=== PATIENT | male | born 1940 | race Caucasian/White ===

== ENCOUNTER 2019-09-27 08:42 | Emergency (ER) | payer MEDICARE, SELFPAY ==
[2019-09-27 08:46] VITALS: BP 141/93; PULSE 90; RESP 16; TEMP 36.4; O2SAT 95; BMI 28.2
--- NOTE | 2019-09-27 08:51 | ED_ITS ---
HPI - Back Pain/Injury General: Chief Complaint: Back Pain/Injury Stated Complaint: back pain Time Seen by Provider: 09/27/19 08:44 Source: patient Mode of arrival: ambulatory Limitations: no limitations History of Present Illness: HPI Narrative: Patient is a very nice 79-year-old male who presents to ED today with a complaint of midthoracic back pain. Patient tells me he went to sleep last night around 9 PM and reportedly felt fine . He states he woke up around 11 PM with pain in his back. He tried treating with Ibuprofen, Aleve, and Tylenol without relief. Patient states he had been mowing the yard that day. He reports previous back pains that are normally treated successfully with the above medications. Patient was seen by Preet Cooper provider and sent to the emergency department for further evaluation as patient has a known thoracic aneurysm and pain could not be reproduced on physical examination. Patient does not complain of any chest pain, shortness of breath, difficulty breathing. He has no numbness, tingling, loss of sensation, weakness to his upper extremities. He does not complain of any other neurological deficits. MD elicited complaint: back pain Onset (ago): hour(s) Timing: constant Similar Symptoms Previously: Yes Location: thoracic spine Radiation: none Relieving factors: none Associated symptoms: Deny abdominal pain, chills, difficulty walking, dysuria, fever(s), nausea, syncope, urinary urgency or vomiting Treatments prior to arrival: NSAIDS and acetaminophen Work related injury: No Review of Systems Const: Denies: fever(s), chills or body aches Eyes: Denies: change in vision, blurry vision, photophobia, floaters or seeing flashes ENMT: Denies: throat pain Card: Denies: chest pain, palpitations, irregular heart rhythm, edema, swelling of feet/ankles, lightheadedness, syncope, pre-syncope, dyspnea on exertion, orthopnea, leg pain with exertion or acrocyanosis Resp: Denies: dyspnea, productive cough, non-productive cough, hemoptysis or chest congestion GI: Denies: abdominal pain, nausea or vomiting : Denies: flank pain, difficulty urinating, dysuria, urinary frequency, urinary urgency or urinary hesitancy Musc: Reports: back pain; Denies: neck pain, extremity pain, extremity swelling, joint pain or joint swelling Neuro: Denies: headache(s), numbness in extremities, weakness in extremities, sensory changes, difficulty walking or dizziness Physical Exam Const: COMMON NORMALS: no acute distress, average body habitus, patient oriented x3, no limitations, healthy appearing, alert and well nourished ORIENTATION/CONSCIOUSNESS: Yes oriented to person, Yes oriented to place and Yes oriented to time HENMT: COMMON NORMALS: normocephalic and atraumatic HEAD & SCALP: normocephalic and atraumatic Neck/C-Spine: COMMON NORMALS: full ROM CERVICAL SPINE: Yes cervical ROM normal, No Cervical spine tenderness and No Paracervical muscle tenderness Chest: COMMONS NORMALS: normal inspection of the chest and normal palpation of entire chest wall Resp: COMMON NORMALS: normal respiratory effort and clear to auscultation bilaterally AUSCULTATION: clear to auscultation bilaterally Cardio: COMMON NORMALS: regular rate and regular rhythm RATE: regular rate RHYTHM: regular rhythm GI: COMMON NORMALS: Normal to inspection, nondistended, normoactive bowel sounds present, Soft to palpation, non-tender, No hepatosplenomegaly present and no masses PALPATION: Yes Soft to palpation and Yes No hepatosplenomegaly present : COMMON NORMALS: Yes no CVA tenderness BLADDER/KIDNEY EXAM: Yes no CVA tenderness Back/Pelvis: COMMON NORMALS: no CVA tenderness and straight leg raise negative bilaterally THORACIC SPINE/UPPER BACK: Yes normal to inspection, Yes thoracic ROM normal, No thoracic spinal tenderness and No paraspinal muscle tenderness LUMBAR SPINE/LOWER BACK: Yes normal to inspection, Yes lumbar ROM normal, No lumbar spinal tenderness and No paraspinal muscle tenderness OTHER: pt complains of mid thoracic back pain but it is not reproducible by palpation Extremity: COMMON NORMALS: normal to inspection and full ROM GENERAL: Yes normal exam except as noted Neuro: COMMON NORMALS: patient oriented x3, moves all extremities, no focal motor deficits, no sensory deficits noted and gait normal SEN SORIUM/ORIENTATION: Yes alert, Yes oriented to person, Yes oriented to place and Yes oriented to time Skin: COMMON NORMALS: no rashes or lesions noted GENERAL SKIN EXAM: no rashes or lesions noted Course Vital Signs: Vital signs: Vital Signs Temperature 97.5 F L 09/27/19 08:46 Pulse Rate 80 09/27/19 09:48 Respiratory Rate 18 09/27/19 09:48 Blood Pressure 163/81 09/27/19 09:48 Pulse Oximetry 96 09/27/19 09:48 MDM - Back Pain/Injury MDM Narrative: Medical decision making narrative: pts known aneurysm is stable; no other intra-throacic abnormalities to explain pain; labs are overall non-concerning; he does have leukocytosis at 18.6 w/o any source of infection; UA is normal; at this time we will treat pts pain and recommend close follow up with his PCP; strict return to ED precautions given Lab Data: Labs: Lab Results 09/27/19 09/27/19 09/27/19 Range/Units 09:05 09:05 09:15 WBC 18.6 H (4.0-10.0) 10^3/ uL RBC 5.42 H (4.1-5.3) 10^6/u L Hgb 16.3 (11.7-16.6) g/dL Hct 49.7 (42.0-52.0) % MCV 91.7 (80-94) fL MCH 30.1 (28.0-34.0) pg MCHC 32.8 (30.0-36.0) g/dL RDW 13.6 (12.1-15.1) % Plt Count 271 (130-400) 10^3/c mm MPV 9.4 (7.4-10.4) fL Neut % (Auto) 90.4 % Lymph % (Auto) 4.7 % [place] % (Auto) 4.3 % Eos % (Auto) 0.1 % Baso % (Auto) 0.1 % Neut # (Auto) 16.85 H (1.8-7.7) 10^3/u L Lymph # (Auto) 0.9 (0.8-4.8) 10^3/u L [place] # (Auto) 0.8 (0.2-0.9) 10^3/u L Eos # (Auto) 0.0 (0.0-0.8) 10^3/u L Baso # (Auto) 0.0 (0.0-0.1) 10^3/u L Nucleated RBC % (a uto) 0 % Nucleated RBCs # 0.0 /100WBC Sodium 135 L (136-145) mmol/L Potassium 3.9 (3.5-5.1) mmol/L Chloride 100 (98-107) mmol/L Carbon Dioxide 21 L (22-29) mmol/L Anion Gap 17.9 (5-19) BUN 10 (8-23) mg/dL Creatinine 0.8 (0.7-1.2) mg/dL GFR Calculation Not Reportable Glucose 129 H (65-115) mg/dL Calculated Osmolal ity 278 L (285-295) mOsm/k g Calcium 9.6 (8.5-10.5) mg/dL Total Bilirubin 0.8 (0.15-1.2) mg/dL AST 25 (0-40) U/L ALT 20 (0-41) U/L Alkaline Phosphata se 88 (40-130) IU/L Total Protein 8.5 (6.6-8.7) g/dL Albumin 4.7 (3.5-5.2) g/dL Globulin 3.8 (1.3-4.6) g/dL Urine Color Yellow (Yellow) Urine Appearance Hazy A (CLEAR) Urine pH 9 H (5-7) Ur Specific Gravit y 1.020 (1.005-1.030) Urine Protein Trace (Negative) Urine Glucose (UA) Norm (Normal) Urine Ketones 1+ H (Negative) Urine Blood Neg (Negative) Urine Nitrate Negative (Negative) Urine Bilirubin Neg (NEGATIVE) Prot Sulfosalicyli c Acd Positive (Negative) Urine Urobilinogen Norm (Negative) mg/dL Ur Leukocyte Serenity ase Negative (Negative) Urine RBC Rare (0-2) /hpf Urine WBC Rare (0-5) /hpf Ur Squamous Epith Cells 0-4 H (0-5) Amorphous Sediment 2+ Urine Bacteria Trace (NONE) Imaging Data^: CTA thoracic: Radiologist's impression: [address] [place] [address] CT Scan Report Signed Patient: Vasquez Marsh Unit #: [id number] : 1940 Age/Sex: 79 / M ADM Date: 09/27/19 Loc: ER Room/Bed: Attending Dr: Ordering Provider/Ordering MD: Krysta Pacheco Date of Service: 09/27/19 Procedure(s): CT angio chest 69075 Accession Number(s): [id number] Report Number: [id number] WS: [id number] CTA THORACIC AORTA WITH AND WITHOUT CONTRAST. HISTORY: mid/lower back pain; known thoracic aneurysm TECHNIQUE: CT imaging of the thorax is performed with and without contrast. After noncontrast imaging is performed, CT angiogram is performed during injection of Omnipaque 350; 95 mL IV.. Sagittal and coronal reconstructions, sagittal and coronal MIP imaging is submitted. All CT scans at [facility] use at least one of these dose optimization techniques: automated exposure control; mA and/or kV adjustment per patient size (includes targeted exams where dose is matched to clinical indication); or iterative reconstruction. DLP: 1426.35 mGy.cm COMPARISON: 01/15/2019 Ectatic mildly dilated thoracic aorta. Similar to the prior study. Maximum transverse diameter of the ascending aorta is 4.3 cm which is similar to the prior study. Mild aneurysmal dilatation continues through the arch and proximal aorta. Aorta is tortuous and just distal to the aortic arch returns to a more normal caliber below the level of the luiz. There is calcified plaque and mild intimal thickening. Moderate calcification at the origin of the great vessels. Largest area of calcification is at the origin of the LEFT subclavian artery. Also similar to the prior study. There is heavy coronary artery calcification. Pulmonary artery size is normal. No adenopathy. Hyperexpanded lungs with emphysema. No suspicious mass or nodule. Small hiatal hernia. Upper abdominal structures are negative for any acute process. Atherosclerosis continues into the superior renal abdominal aorta. Splenic granulomata. Increase in thoracic kyphosis. Mild LEFT convex curvature of the thoracic spine. CT/CT angio chest [id number] IMPRESSION: 1. Stable mild aneurysmal dilatation of the ascending and proximal descending aorta with a maximum diameter 4.3 cm. 2. Mildly tortuous atherosclerotic thoracic aorta otherwise. 3. Chronic emphysema. 4. Moderate calcification at the origin of the great vessels similar to the prior study. 5. Extensive coronary artery atherosclerosis. Dictated By: Shannan Davis DO Signed By: Shannan Davis DO Signed Date/Time: 09/27/19 1015 DD/ 1007 Discharge Plan Discharge Patient Disposition: Home Clinical Impression: Back pain Qualifiers: Back pain location: thoracic back pain Chronicity: acute Back pain laterality: midline Qualified Code(s): M54.6 - Pain in thoracic spine Condition: Stable Prescriptions: New hydrocodone-acetaminophen 5-325 mg tablet 1 tab PO Q6H PRN (Reason: pain) Qty: 14 RF: 0 No Action pravastatin [Pravachol] 40 mg tablet 40 mg PO QPM RF: 0 amlodipine [Norvasc] 10 mg tablet 10 mg PO DAILY RF: 0 benazepril [Lotensin] 40 mg tablet 40 mg PO DAILY RF: 0 Zantac 300 mg PO BID RF: 0 Tylenol Extra Strength 500 mg Tablet 500 mg PO PRN RF: 0 Aleve 220 mg Tablet 440 mg PO PRN RF: 0 ibuprofen 200 mg Tablet 400 mg PO PRN RF: 0 Some Kind Of White Pain Pill See Rx Instructions .ROUTE .COMPLEX RF: 0 Discharge Orders: Discharge Order (Routine); Ordered 09/27/19 Ordered By: Krysta Pacheco Patient Instructions: Back Pain (ED) Activity Restrictions/Additional Instructions: Please follow-up with primary care at the end of the week for reevaluation. Return to the emergency department for any worsening pain, chest pain, difficulty breathing, numbness or tingling to your arms/face, or any other concerns you may have. Coding Level of Care Code ED Twister Tender Paper for [place] [facility] Exam Comprehensive
--- NOTE | 2019-09-27 08:53 | CT_ITS ---
WS: [id number] CTA THORACIC AORTA WITH AND WITHOUT CONTRAST. HISTORY: mid/lower back pain; known thoracic aneurysm TECHNIQUE: CT imaging of the thorax is performed with and without contrast. After noncontrast imaging is performed, CT angiogram is performed during injection of Omnipaque 350; 95 mL IV.. Sagittal and c oronal reconstructions, sagittal and coronal MIP imaging is submitted. All CT scans at [facility] use at least one of these dose optimization techniques: automated exposure control; mA and/o r kV adjustment per patient size (includes targeted exams where dose is matched to clinical indicatio n); or iterative reconstruction. DLP: 1426.35 mGy.cm COMPARISON: 01/15/2019 Ectatic mildly dilated thoracic aorta. Similar to the prior study. Maximum transverse diameter of the ascending aorta is 4.3 cm which is similar to the prior study. Mild aneurysmal dilatation continues through the arch and proximal aorta. Aorta is tortuous and just distal to the aortic arch returns to a more normal caliber below the level of the luiz. There is calcified plaque and mild intimal thick ening. Moderate calcification at the origin of the great vessels. Largest area of calcification is at the origin of the LEFT subclavian artery. Also similar to the prior study. There is heavy coronary a rtery calcification. Pulmonary artery size is normal. No adenopathy. Hyperexpanded lungs with emphysema. No suspicious mass or nodule. Small hiatal hernia. Upper abdominal structures are negative for any acute process. Atherosclerosis continues into the sup erior renal abdominal aorta. Splenic granulomata. Increase in thoracic kyphosis. Mild LEFT convex curvature of the thoracic spine. CT/CT angio chest [id number] IMPRESSION: 1. Stable mild aneurysmal dilatation of the ascending and proximal descending aorta with a maximum diameter 4.3 cm. 2. Mildly tortuous atherosclerotic thoracic aorta otherwise. 3. Chronic emphysema. 4. Moderate calcification at the origin of the great vessels similar to the pr ior study. 5. Extensive coronary artery atherosclerosis.
[2019-09-27 09:13] LABS: Basophils % 0.1 %; Eosinophils % 0.1 %; Hematocrit 49.7 % (42.0-52.0); Hemoglobin 16.3 g/dL (11.7-16.6); Lymphocytes # 0.9 10^3/uL (0.8-4.8); Lymphocytes % 4.7 %; Mean Corpuscular HGB Conc 32.8 g/dL (30.0-36.0); Mean Corpuscular Hemoglobin 30.1 pg (28.0-34.0); Mean Corpuscular Volume 91.7 fL (80-94); Mean Platelet Volume 9.4 fL (7.4-10.4); Monocytes # 0.8 10^3/uL (0.2-0.9); Monocytes % 4.3 %; Neutrophils # 16.85 10^3/uL (1.8-7.7); Neutrophils % 90.4 %; Nucleated Red Blood Cells % 0 %; Platelet Count 271 10^3/cmm (130-400); Red Blood Count 5.42 10^6/uL (4.1-5.3); Red Cell Distribution Width 13.6 % (12.1-15.1); White Blood Count 18.6 10^3/uL (4.0-10.0)
[2019-09-27 09:31] LABS: Alanine Aminotransferase 20 U/L (0-41); Albumin Level 4.7 g/dL (3.5-5.2); Alkaline Phosphatase 88 IU/L (40-130); Anion Gap 17.9 (5-19); Aspartate Amino Transferase 25 U/L (0-40); Blood Urea Nitrogen 10 mg/dL (8-23); Calcium 9.6 mg/dL (8.5-10.5); Carbon Dioxide 21 mmol/L (22-29); Chloride 100 mmol/L (98-107); Globulin 3.8 g/dL (1.3-4.6); Glucose 129 mg/dL (65-115); Osmolality Calculated 278 mOsm/kg (285-295); Potassium 3.9 mmol/L (3.5-5.1); Sodium 135 mmol/L (136-145); Total Bilirubin 0.8 mg/dL (0.15-1.2); Total Protein 8.5 g/dL (6.6-8.7)
[2019-09-27] MEDS: iohexol 350 mg/mL 100 mL Btl IV (09:42)
[2019-09-27 09:48] VITALS: BP 163/81; PULSE 80; RESP 18; O2SAT 96
[2019-09-27 09:57] LABS: Add Urine Microscopic? YES; Bilirubin Urine Neg (NEGATIVE); Blood Urine Neg (Negative); Glucose Urine UA Norm (Normal); Ketones Urine 1+ (Negative); Leukocyte Esterase Urine Negative (Negative); Nitrate Urine Negative (Negative); Protein Urine Trace (Negative); Sulfosalicylic Acid Urine Positive (Negative); Urine Appearance Hazy (CLEAR); Urine Color Yellow (Yellow); Urobilinogen Urine Norm (Negative); pH Urine 9 (5-7)
[2019-09-27 10:06] LABS: Add Urine Culture? No; Amorphous Sediment Urine 2+; Bacteria Urine TRACE; RBC Urine RARE /hpf (0-2); Squamous Epithelial Cell Urine 0-4 (0-5); WBC Urine RARE /hpf (0-5)
[2019-09-27 10:46] VITALS: BP 131/87; PULSE 82; RESP 20; O2SAT 96
== END 2019-09-27 10:47 | disposition home or self-care (01) ==
PROVIDERS: Emergency Provider Physician Assistant
DX: M54.6 Pain in thoracic spine (principal)
CPT/HCPCS: 12345; 71275; 80053; 81001; 85025; 99283; Q9967

== ENCOUNTER 2019-10-01 18:33 | Inpatient (IN) | payer MEDICARE, SELFPAY ==
[2019-10-01 18:39] VITALS: BP 126/77; PULSE 100; RESP 20; TEMP 37.3; O2SAT 94; BMI 28.2
[2019-10-01 19:14] VITALS: BP 111/74; PULSE 78; RESP 16; O2SAT 96
[2019-10-01 19:14] LABS: Basophils % 0.2 %; Eosinophils % 0.1 %; Hematocrit 40.7 % (42.0-52.0); Hemoglobin 13.6 g/dL (11.7-16.6); Lymphocytes # 0.5 10^3/uL (0.8-4.8); Mean Corpuscular HGB Conc 33.4 g/dL (30.0-36.0); Mean Corpuscular Hemoglobin 29.7 pg (28.0-34.0); Mean Corpuscular Volume 88.9 fL (80-94); Mean Platelet Volume 9.4 fL (7.4-10.4); Monocytes # 1.8 10^3/uL (0.2-0.9); Monocytes % 11.5 %; Neutrophils # 12.98 10^3/uL (1.8-7.7); Neutrophils % 84.7 %; Nucleated Red Blood Cells % 0 %; Platelet Count 287 10^3/cmm (130-400); Red Blood Count 4.58 10^6/uL (4.1-5.3); White Blood Count 15.3 10^3/uL (4.0-10.0)
--- NOTE | 2019-10-01 19:29 | CTR_ITS ---
PROCEDURE INFORMATION: Exam: CT Abdomen And Pelvis With Contrast Exam date and time: 10/01/2019 8:10 PM Age: 79 years old Clinical indication: Nausea and vomiting; Abdominal pain; Generalized; Additional info: Ruq abdominal pain TECHNIQUE: Imaging protocol: Computed tomography of the abdomen and pelvis with intravenous contrast. Radiation optimization: All CT scans at this facility use at least one of these dose optimization techniques: automated exposure control; mA and/or kV adjustment per patient size (includes targeted exams where dose is matched to clinical indication); or iterative reconstruction. Contrast material: OMNI 300; Contrast volume: 95 ml; Contrast route: INTRAVENOUS (IV); COMPARISON: US gall bladder [id number] 10/01/2019 8:00 PM RADIATION DOSE METRICS: Total DLP (mGy-cm): 979.48 FINDINGS: Lungs: Limited assessment lung bases without visible evidence of active cardiopulmonary process. Coronary artery disease. Liver: Unremarkable. No mass. Gallbladder and bile ducts: Examination reveals a markedly inflamed gallbladder. No visible form cholelithiasis. No visible solid gallbladder wall mass. No visible free pericholecystic fluid. Marked surrounding inflammatory phlegmonous response. Suspicion for acute acalculous cholecystitis. Pancreas: Pancreas unremarkable. No visible pancreatic ductal ectasia. Spleen: Scattered calcified splenic granulomas. Spleen otherwise unremarkable. Adrenals: Normal. No mass. Kidneys and ureters: Simple cortical cyst equator left kidney measuring 55 mm. No follow-up recommended. No visible hydronephrosis or perinephric fluid bilaterally. No visible nephrolithiasis. Stomach and bowel: Adjacent reactive duodenitis and focal colitis. Diverticulosis coli, primarily the sigmoid colon, without visible evidence of acute diverticulitis. Nonobstructive bowel pattern. Appendix: The appendix is visualized appears noninflamed. Intraperitoneal space: No free fluid the pelvis. No visible intraperitoneal ascites. Vasculature: The abdominal aorta is nonaneurysmal but demonstrates advanced arterial sclerotic disease. Lymph nodes: Few small benign-appearing periaortic lymph nodes. No visible intraperitoneal mesenteric or retroperitoneal active lymphadenopathy. Bladder: Urinary bladder unremarkable. Reproductive: Prostate hypertrophy. 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 No visible osteolytic or osteoblastic destructive process. Scoliosis. Soft tissues: Unremarkable. CT/CT abdomen pelvis w con* [id number] IMPRESSION: 1. Findings consistent with acute acalculous cholecystitis. 2. Reactive focal inflammatory duodenitis. 3. Reactive hepatic flexure inflammatory colitis. 4. Diverticulosis coli without evidence for diverticulitis. 5. Simple left renal cortical cysts. No follow-up recommended. 6. Other nonurgent and nonemergent findings detailed in text. COMMENTS: Consistent with the [employer]'s Incidental Findings Committee white paper (J Am Debra Radiol 2018): Any incidental renal lesion less than 1.0 cm or classified as too small to characterize, or any incidental cystic renal lesion characterized as simple-appearing, is likely benign. No follow-up imaging is recommended for these lesions per consensus recommendations based on imaging criteria. Radiation Dose CTDIVOL = (mGy): DLP = 979.48 (mGy-cm)
[2019-10-01 19:35] LABS: Alanine Aminotransferase 32 U/L (0-41); Albumin Level 3.5 g/dL (3.5-5.2); Alkaline Phosphatase 95 IU/L (40-130); Anion Gap 14.4 (5-19); Aspartate Amino Transferase 29 U/L (0-40); Blood Urea Nitrogen 16 mg/dL (8-23); Calcium 8.5 mg/dL (8.5-10.5); Carbon Dioxide 22 mmol/L (22-29); Chloride 96 mmol/L (98-107); Creatine Phosphokinase 27 U/L (39-308); Globulin 3.8 g/dL (1.3-4.6); Glucose 147 mg/dL (65-115); Lactate (Lactic Acid level) 1.5 mmol/L (0.5-2.2); Lipase 30 U/L (13-60); Osmolality Calculated 267 mOsm/kg (285-295); Potassium 3.4 mmol/L (3.5-5.1); Sodium 129 mmol/L (136-145); Total Bilirubin 0.6 mg/dL (0.15-1.2); Total Protein 7.3 g/dL (6.6-8.7)
--- NOTE | 2019-10-01 19:40 | USR_ITS ---
PROCEDURE INFORMATION: Exam: US Abdomen, Limited; Right Upper Quadrant Exam date and time: 10/01/2019 8:16 PM Age: 79 years old Clinical indication: Abdominal pain; Flank; Right upper quadrant (ruq); Patient HX: N/v; Additional info: Ruq abdominal pain TECHNIQUE: Imaging protocol: US abdomen. Real time ultrasound with image documentation. Limited exam focused on the right upper quadrant. COMPARISON: No relevant prior studies available. FINDINGS: Liver: Diffuse fatty infiltration of the liver. Mild hepatomegaly. No visible intra or extrahepatic biliary ectasia. Gallbladder: Enlarged hydropic gallbladder. Diffuse gallbladder wall thickening. Bulky appearing echogenic material within the lumen of the gallbladder that does not have the appearance of formed cholelithiasis or the typical appearance gallbladder sludge. Concern for a gallbladder mass. Common bile duct: No visible intra or extrahepatic biliary ectasia. Common bile duct measures 3 mm. Pancreas: Pancreas not well imaged. Right kidney: Unremarkable for age. No mass. No hydronephrosis. Right renal dimensions 11.1 cm x 5.2 cm x 5.2 cm. Aorta: The abdominal aorta where visualized is nonaneurysmal. Portal venous: Antecedent portal venous flow. Inferior vena cava: Inferior vena cava appears unremarkable were visualized. US/US gall bladder [id number] IMPRESSION: 1. Bulky abnormal intraluminal filling defect of the gallbladder. This finding does not have the typical appearance of gallbladder sludge or formed cholelithiasis. Concern for potential gallbladder mass. 2. Diffuse fatty infiltration of the liver. 3. Mild hepatomegaly. 4. Pancreas not well imaged due to bowel gas.
--- NOTE | 2019-10-01 19:42 | ED_ITS ---
HPI - Abdominal Pain General: Chief Complaint: Abdominal Pain Stated Complaint: low bp/ abd pain Time Seen by Provider: 10/01/19 18:48 History of Present Illness: HPI narrative: 79-year-old gentleman comes in with right upper quadrant abdominal pain, lethargy, and some vomiting for the past 3 days or so. He was seen on Friday in the ER with back pain, and had a negative CT MADRIGAL for PE/aneurysmal dissection. He was given hydrocodone. Friday and Friday he took that medication but stopped it on Friday. He says that he was seen on Friday in the clinic, and set up for right upper quadrant ultrasound, as he was having pain there at that point. He is continued to have pain with some vomiting since that time. No fever MD elicited complaint: abdominal pain Pertinent past history: none Onset (ago): day(s) Location: RUQ Severity: severe Quality: stabbing, aching and fullness Radiation: none Relieving factors: nothing Associated Symptoms: Reports constipation, nausea and vomiting; Denies coffee ground emesis, diarrhea, dysuria, fever(s), hematuria and hematemesis Review of Systems Const: Denies: fever(s) ENMT: Denies: swelling of lips/tongue or sinus pain Card: Denies: chest pain, palpitations, irregular heart rhythm or edema Resp: Denies: dyspnea, productive cough, non-productive cough or wheezing GI: Reports: nausea, vomiting and constipation; Denies: hematemesis, coffee ground emesis or diarrhea : Denies: difficulty urinating, dysuria or hematuria Musc: Denies: neck pain or back pain Skin/Breast: Denies: rash, pruritus or erythema Neuro: Denies: headache(s), dizziness or vertigo Psych: Denies: anxiety PFSH ED PFSH: Medical History Coronary atherosclerosis Diverticulosis Dyslipidemia Hypertension Surgical History No pertinent past surgical history Family History Other CAD (coronary artery disease) Cancer Hypertension Social History Smoking and tobacco status: former smoker Alcohol intake: current Alcohol intake frequency: holidays/special occasions only Alcohol type: beer Substance/Drug Use: never Household members: spouse Housing: House Current occupation: Retired [employer] Physical Exam Const: GENERAL APPEARANCE: well developed ORIENTATION/CONSCIOUSNESS: Yes oriented to person, Yes oriented to place and Yes oriented to time HENMT: COMMON NORMALS: normocephalic, external ears normal and Normal external nose present HEAD & SCALP: normocephalic FACE & SINUS: normal facial exam NOSE: Normal external nose present and No nasal discharge present EXTERNAL EAR: Yes external ears normal THROAT: posterior oropharynx normal; no peritonsillar mass Eye: COMMON NORMALS: Equal, round and reactive pupils present, EOMs intact bilaterally and conjunctivae normal EYELID: eyelids normal CONJUNCTIVA: Yes conjunctivae normal PUPIL: Yes Equal, round and reactive pupils present Neck/C-Spine: GENERAL: No tracheal deviation Chest: COMMONS NORMALS: normal inspection of the chest CHEST: No tenderness Resp: COMMON NORMALS: clear to auscultation bilaterally EFFORT & INSPECTION: No tachypneic, No respiratory distress, No retractions, No uses accessory muscles and No tracheal deviation AUSCULTATION: clear to auscultation bilaterally, no rhonchi, no wheezes and lung sounds not diminished Cardio: COMMON NORMALS: regular rate and regular rhythm RATE: regular rate RHYTHM: regular rhythm HEART SOUNDS: no murmurs PERIPHERAL PULSES: radial pulses present GI: INSPECTION: No abdominal distension AUSCULTATION: No Hyperactive bowel sounds present and No Hypoactive bowel sounds present PALPATION: Yes Tenderness to palpation present (GI) Details: RUQ, No Guarding due to palpation present (GI) and No Rigid due to palpation PERCUSSION: no dullness to percussion and no tympanic to percussion Neuro: SENSORIUM/ORIENTATION: Yes oriented to person, Yes oriented to place and Yes oriented to time Psych: COMMON NORMALS: mental status grossly normal Skin: COMMON NORMALS: no rashes or lesions noted GENERAL SKIN EXAM: no rashes or lesions noted Course Consultations: Consultation #1: Zeina Consultation #2: alexis Vital Signs: Vital signs: Vital Signs Temperature 98.8 F 10/01/19 23:58 Pulse Rate 71 10/01/19 23:58 Respiratory Rate 18 10/01/19 23:58 Blood Pressure 105/71 10/01/19 23:58 Pulse Oximetry 96 10/01/19 23:58 MDM - Abdominal Pain MDM Narrative: Medical decision making narrative: 79-year-old gentleman with right upper quadrant pain, white count of 15, and vomiting. Both ultrasound and CT confirmed evidence of acalculous cholecystitis. He has an adjacent colitis and duodenitis as well. Surgery was contacted. They asked for hospitalist admission, with surgical consultation. Zosyn for antibiotics. Pain and nausea control and fluids. Lab Data: Labs: Lab Results 10/01/19 10/01/19 10/01/19 Range/Units 19:05 19:05 19:05 WBC 15.3 H (4.0-10.0) 10^3/ uL RBC 4.58 (4.1-5.3) 10^6/u L Hgb 13.6 (11.7-16.6) g/dL Hct 40.7 L (42.0-52.0) % MCV 88.9 (80-94) fL MCH 29.7 (28.0-34.0) pg MCHC 33.4 (30.0-36.0) g/dL RDW 14.0 (12.1-15.1) % Plt Count 287 (130-400) 10^3/c mm MPV 9.4 (7.4-10.4) fL Neut % (Auto) 84.7 % Lymph % (Auto) 3.0 % Sampson % (Auto) 11.5 % Eos % (Auto) 0.1 % Baso % (Auto) 0.2 % Neut # (Auto) 12.98 H (1.8-7.7) 10^3/u L Lymph # (Auto) 0.5 L (0.8-4.8) 10^3/u L Sampson # (Auto) 1.8 H (0.2-0.9) 10^3/u L Eos # (Auto) 0.0 (0.0-0.8) 10^3/u L Baso # (Auto) 0.0 (0.0-0.1) 10^3/u L Nucleated RBC % (a uto) 0 % Nucleated RBCs # 0.0 /100WBC Sodium 129 L (136-145) mmol/L Potassium 3.4 L (3.5-5.1) mmol/L Chloride 96 L (98-107) mmol/L Carbon Dioxide 22 (22-29) mmol/L Anion Gap 14.4 (5-19) BUN 16 (8-23) mg/dL Creatinine 0.9 (0.7-1.2) mg/dL GFR Calculation Not Reportable Glucose 147 H (65-115) mg/dL Calculated Osmolal ity 267 L (285-295) mOsm/k g Lactate 1.5 (0.5-2.2) mmol/L Calcium 8.5 (8.5-10.5) mg/dL Total Bilirubin 0.6 (0.15-1.2) mg/dL AST 29 (0-40) U/L ALT 32 (0-41) U/L Alkaline Phosphata se 95 (40-130) IU/L Creatine Kinase 27 L (39-308) U/L Total Protein 7.3 (6.6-8.7) g/dL Albumin 3.5 (3.5-5.2) g/dL Globulin 3.8 (1.3-4.6) g/dL Lipase 30 (13-60) U/L Discharge Plan Discharge Patient Disposition: Admitted As Inpatient Admit Provider: Adrian Morales Clinical Impression: Acalculous cholecystitis Condition: Stable Referrals: Cuba Plasencia [Primary Care Provider] - Discharge Date/Time: 10/01/19 23:27 Coding Level of Care Code ED Food Operations Manager for g Fwd Exam Comprehensive
[2019-10-01] MEDS: ondansetron 2 mg/ML SDV 2 mL 4 MG IVP (20:16)
[2019-10-01] MEDS: sodium chloride 0.9% 1,000 ML 999 ML IV (20:16)
[2019-10-01] MEDS: ketorolac 30 mg/mL INJ IVP (20:16)
[2019-10-01] MEDS: iohexol 300 mg/mL 100 mL Btl IV (20:27)
[2019-10-01 20:52] VITALS: BP 117/82; PULSE 83; RESP 16; O2SAT 94
--- NOTE | 2019-10-01 21:28 | P.HP_ITS ---
Providers/Chief Complaint Primary Care Provider: Cuba lPasencia Chief Complaint: low bp/ abd pain History of Present Illness Vasquez Marsh is a 79 year old male who carries history of descending aortic aneurysm without significant past medical history or surgical history coming in today for worsening right upper quadrant pain. Patient is stating that his symptoms started on Friday which he is describing as back pain in between his shoulder, 10/10 sharp stabbing pain, on Friday he went to clinic who directed him to the ED for further evaluation, CTA chest ruled out aortic dissection, he was discharged on hydrocodone, at home his symptoms were getting worse he was seen in the clinic again on Friday, his opioids were discontinued, today he decided to come to the hospital for worsening of his symptoms and pain. Patient is stating that since Friday he has been having dry heaves, chills, worsening abdominal pain, he has not eaten very well since last Friday, he is denying vomiting, fever, shortness of breath, chest pain, palpitations, urinary retention or dysuria. There is no association of food intake to this pain. Benny james is not feeling hungry at all since last Friday. Diagnostics in the ER revealed leukocytosis, he is afebrile, normal hemodynamics, he has been given Toradol, Zosyn, IV fluids and opioids Sodium 129, potassium 3.4, lactic acid normal, CT abdomen revealed distended gallbladder with filling defect however no gallstones identified, duodenitis Dr. Saucedo consulted Review of Systems Const: Reports: chills, body aches, change in appetite and fatigue; Denies: fever(s) Eyes: Denies: change in vision ENMT: Denies: throat pain Card: Denies: chest pain Resp: Denies: dyspnea GI: Reports: abdominal pain, nausea and heartburn; Denies: vomiting, diarrhea or constipation : Denies: flank pain or difficulty urinating Musc: Denies: neck pain or back pain Skin/Breast: Denies: rash Neuro: Denies: headache(s) Psych: Denies: anxiety Endo: Denies: polyuria Alex/Lymph: Denies: easy bruising All/Imm: Denies: urticaria Medications/Allergies Home Medications Medication Instructions Recorded Confirmed Last Taken Type Some Kind Of White Pain Pill See Rx Instructions .ROUTE .COMPLEX 09/27/19 09/27/19 Unknown History Zantac 300 mg PO BID 09/27/19 09/27/19 09/27/19 History acetaminophen [Tylenol Extra 500 mg PO PRN 09/27/19 09/27/19 09/26/19 History Strength] amlodipine [Norvasc] 10 mg PO DAILY 09/27/19 09/27/19 09/27/19 History benazepril [Lotensin] 40 mg PO DAILY 09/27/19 09/27/19 09/27/19 History hydrocodone-acetaminophen 1 tab PO Q6H PRN #14 tab 09/27/19 Unknown Rx ibuprofen 400 mg PO PRN 09/27/19 09/27/19 09/26/19 History naproxen sodium [Aleve] 440 mg PO PRN 09/27/19 09/27/19 09/27/19 01:00 History pravastatin [Pravachol] 40 mg PO QPM 09/27/19 09/27/19 09/26/19 History Allergies Allergy/AdvReac Type Severity Reaction Status Date / Time No Known Allergies Allergy Verified 10/01/19 18:43 PFSH Acute PFSH: Medical History Coronary atherosclerosis Diverticulosis Dyslipidemia Hypertension Surgical History No pertinent past surgical history Family History Other CAD (coronary artery disease) Cancer Hypertension Social History Smoking and tobacco status: former smoker Alcohol intake: current Alcohol intake frequency: holidays/special occasions only Alcohol type: beer Substance/Drug Use: never Household members: spouse Housing: House Current occupation: Retired [employer] Vitals/I&O/Wt Last Vital Signs Temp 99.1 F 10/01/19 18:39 Pulse 83 10/01/19 20:52 Resp 16 10/01/19 20:52 BP 117/82 10/01/19 20:52 Pulse Ox 94 10/01/19 20:52 Weight last 48 hrs Weight 94.347 kg Physical Exam Narrative: EXAM NARRATIVE: This is a very pleasant elderly male Systolic blood pressure 128 mmHg, no hemodynamic compromise Afebrile Saturating well on room air At the time of my evaluation no active distress due to pain Positive Finnegan sign, distended abdomen, no signs of peritonitis, bowel sounds sluggish, S1, S2 no tachycardia or signs of heart failure Lungs are clear to auscultation Neurologically nonfocal exam EOMI, PERRLA GCS 15 Skin does not show any sign ischemia getting ulcer Lower extremity no sign of edema gangrene ulcer Appropriate mood and affect Data : 10/01/19 19:05 10/01/19 19:05 A&P Assessment and plan (1) Acalculous cholecystitis: Status: Acute (2) Back pain: Status: Acute Qualifiers: Back pain laterality: midline Back pain location: thoracic back pain Chronicity: acute Qualified Code(s): M54.6 - Pain in thoracic spine (3) Duodenitis: Status: Acute (4) Descending aortic aneurysm: Status: Acute (5) BPH (benign prostatic hyperplasia): Status: Acute (6) Degenerative joint disease: Status: Acute (7) Renal cyst: Status: Acute Additional A&P Information Acute cholecystitis Patient carries history of dyslipidemia, I will check his triglyceride levels No gallstone identified, CT abdomen ultrasound reviewed, I would request HIDA scan to rule out obstructive etiology for the filling defect evident on CT abdomen Continue Zosyn, keep patient n.p.o., normal saline fluid cessation overnight Inflamed gallbladder with duodenitis presentation, I do not see any porcelain gallbladder in the report, patient has had a healthy life, no previous surgical or extensive comorbidities Does not meet sepsis criteria, for analgesia I would use anti-inflammatory along opioids Dr. Rubio is consulted Back pain Carries history of descending aortic aneurysm, CTA ruled out aortic dissection Currently blood pressure 128mmhg, no hemodynamic compromise Back pain secondary to degenerative joint disease Hypertension: Patient has not been taking his antihypertensive since Friday, his blood pressure currently is considered low for his baseline blood pressure Continue fluid resuscitation Prostatic hyperplasia without obstructive signs Diet: N.p.o. DVT prophylaxis: SCDs, avoid anticoagulation in case he would require any surgical intervention in the morning Full code Attestations Medical Necessity Statement*: I am anticipating patient will stay more than 2 midnights currently need evaluation for acute cholecystitis with duodenitis, currently n.p.o. requiring IV antibiotics, general surgery is consulted no active sepsis identified Time Spent in Patient Care: (>than 50% of time spent in counselling and/or direct pt care on unit) . 50 minutes Coding Level of Care Code Acute [employer]isher for Chg Fwd Diagnoses Acalculous cholecystitis K81.9 Back pain M54.6 Back pain laterality: midline Back pain location: thoracic back pain Chronicity: acute Duodenitis K29.80 Descending aortic aneurysm I71.9 BPH (benign prostatic hyperplasia) N40.0 Degenerative joint disease M19.90 Renal cyst N28.1
[2019-10-01] MEDS: piperacillin-tazobactam 3.375 GM in sodium chloride 0.9% (plus) 50 ML IV (21:35)
[2019-10-01 21:44] VITALS: RESP 18; O2SAT 96
[2019-10-01] MEDS: HYDROmorphone 1 mg/mL INJ 1 mL IVP (21:44)
[2019-10-01 23:14] VITALS: BP 124/85; PULSE 88; RESP 16; O2SAT 95
[2019-10-01 23:58] VITALS: BP 105/71; PULSE 71; RESP 18; TEMP 37.1; O2SAT 96
[2019-10-02] MEDS: sodium chloride 0.9% 1,000 ML 30 ML IV (00:25)
--- NOTE | 2019-10-02 02:57 | PC.NURSE ---
Patient drank a full bottle of Ensure Plus at 0240. Pt will remain NPO.
[2019-10-02 03:44] LABS: Basophils % 0.2 %; Eosinophils % 0.1 %; Hematocrit 37.8 % (42.0-52.0); Hemoglobin 12.4 g/dL (11.7-16.6); Lymphocytes % 6.5 %; Mean Corpuscular HGB Conc 32.8 g/dL (30.0-36.0); Mean Corpuscular Hemoglobin 30.5 pg (28.0-34.0); Mean Corpuscular Volume 92.9 fL (80-94); Mean Platelet Volume 9.9 fL (7.4-10.4); Monocytes # 1.8 10^3/uL (0.2-0.9); Monocytes % 11.5 %; Neutrophils # 12.88 10^3/uL (1.8-7.7); Neutrophils % 81.1 %; Nucleated Red Blood Cells % 0 %; Platelet Count 252 10^3/cmm (130-400); Red Blood Count 4.07 10^6/uL (4.1-5.3); Red Cell Distribution Width 14.2 % (12.1-15.1); White Blood Count 15.9 10^3/uL (4.0-10.0)
[2019-10-02 04:00] VITALS: BP 132/79; PULSE 70; RESP 18; TEMP 37.2; O2SAT 96
[2019-10-02 04:04] LABS: Alanine Aminotransferase 27 U/L (0-41); Albumin Level 2.7 g/dL (3.5-5.2); Alkaline Phosphatase 87 IU/L (40-130); Anion Gap 12.8 (5-19); Aspartate Amino Transferase 24 U/L (0-40); Blood Urea Nitrogen 15 mg/dL (8-23); Calcium 8.2 mg/dL (8.5-10.5); Carbon Dioxide 22 mmol/L (22-29); Chloride 100 mmol/L (98-107); Globulin 3.4 g/dL (1.3-4.6); Glucose 103 mg/dL (65-115); Osmolality Calculated 269 mOsm/kg (285-295); Potassium 3.8 mmol/L (3.5-5.1); Sodium 131 mmol/L (136-145); Total Bilirubin 0.5 mg/dL (0.15-1.2); Total Protein 6.1 g/dL (6.6-8.7)
[2019-10-02 04:05] LABS: Chol HDL Ratio 4.76 mg/dL (1.0-5.00); Cholesterol 100 mg/dL (0-200); HDL Cholesterol 21 mg/dL (60-100); LDL Cholesterol Calculated 60 mg/dL (50-129); LDL HDL Ratio 2.86 RATIO (0.00-3.22); Triglycerides 97 mg/dL (0-150)
--- NOTE | 2019-10-02 05:52 | P.CONIM_ITS ---
Providers/Reason For Consult Consulting Physican/Specialty*: Arun Saucedo MD Reason for Consult*: Abdominal pain Attending Physician: Adrian Morales MD Primary Care Provider: Cuba Plasencia History of Present Illness History of Present Illness Chief Complaint: My tummy hurts but I feel better now History of present illness: Vasquez Marsh is a 79 year old male presents to the emergency department with worsening symptoms of abdominal pain that has been experiencing since last Friday, patient was seen at an outpatient facility and undergone work-up and ended up by being going home, as the patient's condition got worse he came to the ER yesterday and further work-up showed that the patient have leukocytosis and intense inflammatory process on the CT scan involving the gallbladder duodenum and the hepatic flexure. Patient got to be admitted on the hospitalist service and he does not report any nausea vomiting fevers or chills yet he does experience right upper quadrant abdominal pain and he feels better now likely due to the pain medications and antimicrobial therapy that was started. Patient does not recall any episodes in the past like such CTA on 09/27/2019 was done and showed; IMPRESSION: 1. Stable mild aneurysmal dilatation of the ascending and proximal descending aorta with a maximum diameter 4.3 cm. 2. Mildly tortuous atherosclerotic thoracic aorta otherwise. 3. Chronic emphysema. 4. Moderate calcification at the origin of the great vessels similar to the prior study. 5. Extensive coronary artery atherosclero CT scan of the abdomen and pelvis 821 was done and showed; FINDINGS: Lungs: Limited assessment lung bases without visible evidence of active cardiopulmonary process. Coronary artery disease. Liver: Unremarkable. No mass. Gallbladder and bile ducts: Examination reveals a markedly inflamed gallbladder. No visible form cholelithiasis. No visible solid gallbladder wall mass. No visible free pericholecystic fluid. Marked surrounding inflammatory phlegmonous response. Suspicion for acute acalculous cholecystitis. Pancreas: Pancreas unremarkable. No visible pancreatic ductal ectasia. Spleen: Scattered calcified splenic granulomas. Spleen otherwise unremarkable. Adrenals: Normal. No mass. Kidneys and ureters: Simple cortical cyst equator left kidney measuring 55 mm. No follow-up recommended. No visible hydronephrosis or perinephric fluid bilaterally. No visible nephrolithiasis. Stomach and bowel: Adjacent reactive duodenitis and focal colitis. Diverticulosis coli, primarily the sigmoid colon, without visible evidence of acute diverticulitis. Nonobstructive bowel pattern. Appendix: The appendix is visualized appears noninflamed. Intraperitoneal space: No free fluid the pelvis. No visible intraperitoneal ascites. Vasculature: The abdominal aorta is nonaneurysmal but demonstrates advanced arterial sclerotic disease. Lymph nodes: Few small benign-appearing periaortic lymph nodes. No visible intraperitoneal mesenteric or retroperitoneal active lymphadenopathy. Bladder: Urinary bladder unremarkable. Reproductive: Prostate hypertrophy. 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 No visible osteolytic or osteoblastic destructive process. Scoliosis. Soft tissues: Unremarkable. CT/CT abdomen pelvis w con* [id number] IMPRESSION: 1. Findings consistent with acute acalculous cholecystitis. 2. Reactive focal inflammatory duodenitis. 3. Reactive hepatic flexure inflammatory colitis. 4. Diverticulosis coli without evidence for diverticulitis. 5. Simple left renal cortical cysts. No follow-up recommended. 6. Other nonurgent and nonemergent findings detailed in text. Followed by an ultrasound of the liver and gallbladder that showed: 1. Bulky abnormal intraluminal filling defect of the gallbladder. This finding does not have the typical appearance of gallbladder sludge or formed cholelithiasis. Concern for potential gallbladder mass. 2. Diffuse fatty infiltration of the liver. 3. Mild hepatomegaly. 4. Pancreas not well imaged due to bowel gas. General surgery was consulted for further evaluation potential management Review of Systems General: Reports: 10 or more systems reviewed and unremarkable except in HPI and below Meds/Allergies Home Medications and Allergies Home Medications Medication Instructions Recorded Confirmed Last Taken Type Some Kind Of White Pain Pill See Rx Instructions .ROUTE .COMPLEX 09/27/19 09/27/19 Unknown History Zantac 300 mg PO BID 09/27/19 10/02/19 09/27/19 History acetaminophen [Tylenol Extra 500 mg PO PRN 09/27/19 10/02/19 09/26/19 History Strength] amlodipine [Norvasc] 10 mg PO DAILY 09/27/19 10/02/19 09/30/19 06:00 History benazepril [Lotensin] 40 mg PO DAILY 09/27/19 10/02/19 09/30/19 06:00 History hydrocodone-acetaminophen 1 tab PO Q6H PRN #14 tab 09/27/19 10/02/19 Unknown Rx ibuprofen 400 mg PO PRN 09/27/19 10/02/19 09/26/19 History naproxen sodium [Aleve] 440 mg PO PRN 09/27/19 10/02/19 09/27/19 01:00 History pravastatin [Pravachol] 40 mg PO QPM 09/27/19 10/02/19 09/26/19 History benazepril 40 mg PO DAILY 10/02/19 10/02/19 09/30/19 06:00 History Allergies Allergy/AdvReac Type Severity Reaction Status Date / Time No Known Allergies Allergy Verified 10/02/19 06:10 Current Medications Current Medications Generic Name Dose Route Start Last Admin Trade Name Freq PRN Reason Stop Dose Admin Sodium Chloride 1,000 mls @ 30 mls/hr 10/01/19 23:54 10/02/19 00:25 Sodium Chloride 0.9% IV 30 mls/hr .Q24H RUPESH Administration PFSH Acute PFSH: Medical History (Updated 10/02/19 @ 06:10 by Arun Saucedo MD) Coronary atherosclerosis Diverticulosis Dyslipidemia Hypertension Surgical History No pertinent past surgical history Family History Other CAD (coronary artery disease) Cancer Hypertension Social History Smoking and tobacco status: former smoker Alcohol intake: current Alcohol intake frequency: holidays/special occasions only Alcohol type: beer Substance/Drug Use: never Household members: spouse Housing: House Current occupation: Retired [employer] Vitals/I&O/Wt Last Vital Signs Temp 98.8 F 10/01/19 23:58 Pulse 71 10/01/19 23:58 Resp 18 10/01/19 23:58 BP 105/71 10/01/19 23:58 Pulse Ox 96 10/01/19 23:58 Weight last 48 hrs Weight 208 lb Physical Exam Narrative: EXAM NARRATIVE: Patient is conscious alert oriented X3 BMI 28 Head and neck examination PERRLA no masses no cervical lymphadenopathy no jaundice Cardiac examination audible S1-S2 no murmurs no gallops no arrhythmias Chest is clear bilateral,abscence of Rhonchi or wheezes,no surgical emphysema Abdomen tender over the right upper quadrant and a palpable mass located at the right upper quadrant likely represents a distended gallbladder nondistended soft no organomegaly guarding or rigidity/no signs of peritonitis Extremities no cyanosis no clubbing no edema Data Micro: Micro: Microbiology 10/02/19 03:08 Blood Culture - Pr eliminary Blood SPE[facility]IM[facility] 10/02/19 03:10 Blood Culture - Pr eliminary Blood SPECIMEN [facility] A&P Assessment and plan (1) Abdominal pain: After thorough history physical examination and reviewing the chart and images with my personal interpretation patient does have acute cholecystitis, further evaluation of the gallbladder wall involvement of potential concern of a neoplasm would be warranted to review the images further with radiology. I did discuss with the patient different options: 1-laparoscopic ostectomy possible open yet patient did pass relatively the safe window which is 48 to 72 hours after the initial acute episode which was last Friday so likely the patient has a high rate of conversion to open and higher potential for biliary injuries. 2-cholecystostomy tube placement by interventional radiology with the plan for interval cholecystectomy in 6 to 8 weeks I do highly recommend this option to the patient to relieve his symptoms and allow the inflammatory process to subside for elective laparoscopic cholecystectomy. 3-Antimicrobial therapy and plan for interval cholecystectomy in 6 to 8 weeks Patient shows interest that he wants to go home today and I did explain for him that it is not for his best interest as he will need the least antimicrobial therapy and likely cholecystostomy tube decompress his distended and inflamed gallbladder. We will continue coordinating with the hospitalist service, please call for questions or concerns Status: Acute Consult Attestations Medical Necessity Statement: Per hospitalist service Time Spent in Patient Care: (>than 50% of time spent in counselling and/or direct pt care on unit) . Coding Level of Care Code Acute [place] for Chg Fwd Diagnoses Abdominal pain R10.9
[2019-10-02] MEDS: ketorolac 30 mg/mL INJ 15 MG IVP (05:56)
[2019-10-02] MEDS: piperacillin-tazobactam 3.375 GM in sodium chloride 0.9% (plus) 50 ML IV ×3 (06:29→22:22)
[2019-10-02 07:23] VITALS: BP 109/76; PULSE 91; RESP 18; TEMP 36.9; O2SAT 93
[2019-10-02] MEDS: pantoprazole 40 mg SDV IVP ×2 (08:31→08:32)
[2019-10-02 11:55] VITALS: BP 120/76; PULSE 75; RESP 18; TEMP 37.2; O2SAT 92
[2019-10-02 11:55] LABS: INR 1.19 (0.8-1.2)
[2019-10-02 11:56] LABS: Partial Thromboplastin Time 29.2 SECONDS (23.9-36.7)
--- NOTE | 2019-10-02 15:37 | PC.CHAP ---
Pastoral Care Encounter/Spiritual Assessment Type of Contact [] Declined houseperson visit [] Patient/Family/Request visit [] Outpatient visit [] Follow-up visit [] Physician referral [] Code/Alert [X] Routine visit [] Staff referral [] Actively dying [] Patient sleeping [] Family support [] [] Out of room [] Palliative care [] [] Receiving care in room [] Pre-surgical visit [] Trauma [] Long length of stay [] ICU visit [] Other: Relational/Emotional Strength [X] Patient feels connected with others/family/visitors/staff [] Distress [] Loneliness/isolation [] Abandonment Spirituality of Patient [] Person of Jes [] Attends Pentecostal of their Jes [] Believes in Prayer [] Reads Bible or Rastafari materials [] There are Spiritual issues to be addressed Pacu Nurse Interventions [] Prayer [] Active listening [] Non-anxious presence [] Spiritual/emotional support [] Crisis/trauma care [] Spiritual counseling [] Bereavement support [] Provided bereavement packet [] Provided Bible/devotional materials [] Provided toy/stuffed animal, coloring book to patient or family member [] Provided Communion [] Anointing/[place] [] Salvation [] Completed spiritual assessment [X] Other: advocacy; he wants water and doesn't know why he cannot have any; also hopes to be going home this afternoon, but he was not on the discharge list. Impact on Illness or Injury [] Angry [] Fearful [] Anxious [] Often cries [] Exhaustion [] Unable to work [] Unable to attend hindu [] Unable to walk/stand [] Unable to read [] Unable to drive [] Unable to eat/drink [] Unable to sleep [] Unable to be with family [] Patient intubated [] Other: Summary: Spiritual assessment/visit was interrupted due to his immediate needs for liquid. Due to NPO sign, I sought his nurse. He had been in the hospital earlier in the week, discharged home, and returned last night with vomiting. He has strong family support, and his was going to visit at 4pm. I'll check again on him tomorrow. Time spent with patient:approximately 5 mins
[2019-10-02 15:50] VITALS: BP 121/74; PULSE 74; RESP 18; TEMP 36.6; O2SAT 95
--- NOTE | 2019-10-02 16:09 | P.PN_ITS ---
Subjective Subjective: Interval history: Patient reports feeling much better. His abdominal pain significantly improved and he is not nauseous this afternoon. He is passing gas but did not have any bowel movement for the last 1 week because I did not eat anything . Vitals/I&O/Wt Last Vital Signs Temp 97.8 F 10/02/19 15:50 Pulse 74 10/02/19 15:50 Resp 18 10/02/19 15:50 BP 121/74 10/02/19 15:50 Pulse Ox 95 10/02/19 15:50 10/02/19 10/02/19 10/02/19 06:59 14:59 22:59 Intake Total 50 / 50 Balance 50 / 50 Weight last 48 hrs Weight 94.347 kg Physical Exam Const: COMMON NORMALS: no acute distress and patient oriented x3 Resp: COMMON NORMALS: normal respiratory effort and clear to auscultation bilaterally AUSCULTATION: clear to auscultation bilaterally Cardio: COMMON NORMALS: regular rate, regular rhythm and S2 normal heart sound present RATE: regular rate RHYTHM: regular rhythm HEART SOUNDS: S2 normal heart sound present OTHER: No lower extremity edema GI: COMMON NORMALS: Normal to inspection, nondistended, normoactive bowel sounds present and Soft to palpation PALPATION: Yes Soft to palpation OTHER: Right upper quadrant tenderness on palpation. Neuro: COMMON NORMALS: patient oriented x3 and no focal motor deficits Data : 10/02/19 03:10 10/02/19 03:10 Micro: Microbiology 10/02/19 03:08 Blood Culture - Preliminary Blood SPECIMEN COLLECTED 10/02/19 03:10 Blood Culture - Preliminary Blood SPECIMEN COLLECTED A&P Assessment and plan (1) Acalculous cholecystitis: Status: Acute (2) Back pain: Status: Acute Qualifiers: Back pain laterality: midline Back pain location: thoracic back pain Chronicity: acute Qualified Code(s): M54.6 - Pain in thoracic spine (3) Duodenitis: Status: Acute (4) Descending aortic aneurysm: Status: Acute (5) BPH (benign prostatic hyperplasia): Status: Acute (6) Degenerative joint disease: Status: Acute (7) Renal cyst: Status: Acute Additional A&P Information Acute cholecystitis Patient carries history of dyslipidemia, I will check his triglyceride levels No gallstone identified, CT abdomen ultrasound reviewed, I would request HIDA scan to rule out obstructive etiology for the filling defect evident on CT abdomen Continue Zosyn, keep patient n.p.o., normal saline fluid cessation overnight Inflamed gallbladder with duodenitis presentation, I do not see any porcelain gallbladder in the report, patient has had a healthy life, no previous surgical or extensive comorbidities Does not meet sepsis criteria, for analgesia I would use anti-inflammatory along opioids Dr. Rubio is consulted Back pain Carries history of descending aortic aneurysm, CTA ruled out aortic dissection Currently blood pressure 128mmhg, no hemodynamic compromise Back pain secondary to degenerative joint disease Hypertension: Patient has not been taking his antihypertensive since Friday, his blood pressure currently is considered low for his baseline blood pressure Continue fluid resuscitation Prostatic hyperplasia without obstructive signs PLAN: Continue with antibiotics and hopefully we can cool off patient's gallbladder. Discussed options with patient and if he is not responding to antibiotics then gallbladder aspiration or cholecystostomy tube placement could be considered. Patient ultimately will need to have cholecystectomy performed in several weeks. We will start patient on clear liquid diet and see how he is doing tomorrow. Diet: N.p.o. DVT prophylaxis: SCDs, avoid anticoagulation in case he would require any surgical intervention in the morning Full code Attestations Medical Necessity Statement*: Patient with acute cholecystitis requires close inpatient monitoring and treatment Time Spent in Patient Care: 16 - 35 minutes Coding Level of Care Code Acute Depilatory Painter for [facility] Fwd Diagnoses Acalculous cholecystitis K81.9 Back pain M54.6 Back pain laterality: midline Back pain location: thoracic back pain Chronicity: acute Duodenitis K29.80 Descending aortic aneurysm I71.9 BPH (benign prostatic hyperplasia) N40.0 Degenerative joint disease M19.90 Renal cyst N28.1
[2019-10-02 19:32] VITALS: BP 115/75; PULSE 71; RESP 18; TEMP 36.5; O2SAT 94
--- NOTE | 2019-10-02 23:54 | NM_ITS ---
NOTE: Report was unsigned for reason: Order was edited. Original Signature date and time was: 10/02/19 @ 1153 WS: [id number] EXAM: NM hepatobiliary w phar* [id number] DATE OF EXAMINATION: 10/02/2019, 1127 hours COMPARISON: Gallbladder sonogram from one day prior. HISTORY: 79 years old with cholecystitis. TECHNIQUE: 8.2 mCi of technetium 99m mebrofenin was injected intravenously. Serial scintigraphic imaging obtained over the right upper quadrant through 2 hours. FINDINGS: There is prompt uptake of the tracer by the liver parenchyma with excretion into the biliary system. Tracer activity is seen within the small bowel at 10 minutes excluding common bile duct obstruction. The gallbladder never shows tracer uptake. In correlation with ultrasound findings imaging findings are felt to represent acute cholecystitis. MTDD NM/NM hepatobiliary w phar* [id number] IMPRESSION: Nonfilling of the gallbladder lumen with tracer activity through 2 hours. In co rrelation with ultrasound findings from one day prior imaging findings are cons istent with acute cholecystitis. Tracer activity extending into the small bowel excluding biliary obstruction of the common bile duct.
[2019-10-03] VITALS: BP 124/59; PULSE 67; RESP 18; TEMP 37.7; O2SAT 94
[2019-10-03 04:00] VITALS: BP 108/69; PULSE 66; RESP 18; TEMP 37; O2SAT 94
[2019-10-03] MEDS: piperacillin-tazobactam 3.375 GM in sodium chloride 0.9% (plus) 50 ML IV (06:32)
[2019-10-03] MEDS: sodium chloride 0.9% 1,000 ML 30 ML IV (06:49)
[2019-10-03 07:57] VITALS: BP 110/65; PULSE 70; RESP 18; TEMP 36.8; O2SAT 94
[2019-10-03] MEDS: pantoprazole 40 mg SDV IVP (08:24)
--- NOTE | 2019-10-03 09:47 | P.PN_ITS ---
Subjective Subjective: Interval history: Patient overall feels better yet continues to have leukocytosis No acute events overnight Patient continues to refuse any intervention particularly in the form of cholecystostomy tube and he wants to go home Vitals/I&O/Wt Last Vital Signs Temp 98.3 F 10/03/19 07:57 Pulse 70 10/03/19 07:57 Resp 18 10/03/19 07:57 BP 110/65 10/03/19 07:57 Pulse Ox 94 10/03/19 07:57 10/02/19 10/03/19 10/03/19 22:59 06:59 14:59 Intake Total 290 / 340 1222 / 1562 320 / 320 Balance 290 / 340 1222 / 1562 320 / 320 Weight last 48 hrs Weight 208 lb Physical Exam Narrative: EXAM NARRATIVE: Patient is conscious alert oriented X3 BMI 28 Head and neck examination PERRLA no masses no cervical lymphadenopathy no jaundice Abdomen less tender over the right upper quadrant and continued to have a palpable mass located at the right upper quadrant likely represents a distended gallbladder otherwise nondistended soft no organomegaly guarding or rigidity/no signs of peritonitis Data : 10/02/19 03:10 10/02/19 03:10 Micro: Microbiology 10/02/19 03:10 Blood Culture - Preliminary Blood Gram Negative Rods 10/02/19 03:08 Blood Culture - Preliminary Blood NEGATIVE TO DATE A&P Assessment and plan (1) Abdominal pain: I did discuss with the patient again about his options with particular focus on cholecystostomy tube yet he elected not to have any and he would rather be on antibiotics, I did explain for the patient that he has a higher chance of coming back to the ER as his symptoms may get worse, and patient understands that. I did offer the patient to follow-up with me at surgery office in 2 weeks to discuss potential elective/interval laparoscopic cholecystectomy Assurance and education All questions have been answered and all concerns have been addressed to patient's satisfaction. Status: Acute Attestations Medical Necessity Statement*: Per hospitalist service Time Spent in Patient Care: (>than 50% of time spent in counselling and/or direct pt care on unit) . Coding Level of Care Code Acute Sustainable Development Policy Analyst for [facility] Diagnoses Abdominal pain R10.9
[2019-10-03 10:12] VITALS: BP 110/65; PULSE 70; RESP 18; TEMP 36.8; O2SAT 94
--- NOTE | 2019-10-03 10:27 | PM.DCS ---
Discharge Providers Date of Admission: 10/01/19 21:40 Date of Discharge: October 03, 2019 Attending Provider at Admission: Adrian Morales MD Attending Provider at Discharge: Mike Soriano MD Primary Care Provider: [place] Plasencia Diagnoses at Discharge Discharge Diagnosis (1) Abdominal pain: Status: Acute Reason for Visit Reason for Visit: low bp/ abd pain Hospital Course Discharge Summary: Patient presented with signs and symptoms of acute cholecystitis. He has surrounding inflammation including duodenitis and some evidence of colitis. He was treated with IV antibiotics and gradually improved and this morning reports feeling much better and adamantly wants to go home. I had extensive discussion regarding importance of appropriate treatment and patient understands well that he may still require further treatment with his cholecystostomy tube or gallbladder aspiration. Patient currently does not want to have any procedures and wants to give time for antibiotics to work. Since patient's blood pressure is on the lower side his blood pressure medications will not be continued. He will be transitioned to Levaquin and Flagyl. Patient adamantly refuses to stay for even 1 more day and wants to go home. Reports that he is eating much better. Dietary recommendations were provided by Dr. Ordonez. Patient to advance diet as tolerated. I will request blood work checked in several days prior to primary care physician follow-up. Zantac will be switched to Protonix for better GI protection. Patient was told to avoid any NSAIDs. Physical Exam Const: COMMON NORMALS: no acute distress and patient oriented x3 Resp: COMMON NORMALS: normal respiratory effort and clear to auscultation bilaterally AUSCULTATION: clear to auscultation bilaterally Cardio: COMMON NORMALS: regular rate, regular rhythm and S2 normal heart sound present RATE: regular rate RHYTHM: regular rhythm HEART SOUNDS: S2 normal heart sound present OTHER: No lower extremity edema GI: COMMON NORMALS: Normal to inspection, nondistended, normoactive bowel sounds present and Soft to palpation PALPATION: Yes Soft to palpation OTHER: Slightly tender at the right upper quadrant. Neuro: COMMON NORMALS: patient oriented x3 and no focal motor deficits Discharge Data Data Completed and Pending: Completed Studies During Hospitalization Category Date Time Status CT abdomen pelvis w con* [id number] Urge nt Cat Scan 10/01/19 19:29 Completed NM hepatobiliary w phar* [id number] Rout ine Nuc Med 10/02/19 23:54 Completed US gall bladder 7 6705 Urgent Ultrasound 10/01/19 19:40 Completed Pending at discharge Category Date Time Status Blood Culture Sta t Lab 10/01/19 23:54 Results Labs from last 24 hours 10/02/19 11:36 PT 15.50 H INR 1.19 APTT 29.2 Vitals: Last Vital Signs Temp 98.3 F 10/03/19 10:12 Pulse 70 10/03/19 10:12 Resp 18 10/03/19 10:12 BP 110/65 10/03/19 10:12 Pulse Ox 94 10/03/19 10:12 Discharge Plan Discharge Patient Disposition: Home Condition: Stable Prescriptions: New Levaquin 750 mg tablet 750 mg PO DAILY 10 Days Qty: 10 RF: 0 Flagyl 500 mg tablet 500 mg PO Q8H Qty: 30 RF: 0 Protonix 40 mg tablet,delayed release (DR/EC) 40 mg PO QAM 28 Days Qty: 28 RF: 0 Continued pravastatin [Pravachol] 40 mg tablet 40 mg PO QPM RF: 0 hydrocodone-acetaminophen 5-325 mg tablet 1 tab PO Q6H PRN (Reason: pain) Qty: 14 RF: 0 Discontinued amlodipine [Norvasc] 10 mg tablet 10 mg PO DAILY RF: 0 benazepril [Lotensin] 40 mg tablet 40 mg PO DAILY RF: 0 Zantac 300 mg PO BID RF: 0 naproxen sodium [Aleve] 220 mg Tablet 440 mg PO PRN RF: 0 ibuprofen 200 mg Tablet 400 mg PO PRN RF: 0 Discharge Orders: Discharge Order (Routine); Ordered 10/03/19 Ordered By: Arun Saucedo Other Ambulatory Orders: Complete Blood Count w/Auto (Routine) Timeframe: 3 Days Location: Determined by Patient Ordered By: Mike Soriano Comprehensive Metabolic Panel (Routine) Timeframe: 3 Days Facility: [facility] - Location: Lab - Main Lab Ordered By: Mike Soriano Referrals: Cuba Plasencia [Primary Care Provider] - 4-7 days (Please call Friday to schedule a follow up appointment.) Arun Saucedo MD [Physician] - 2 weeks (Please call Friday to schedule a follow up appointment. Return to surgery office in 2 to 3-week) Discharge Diet: Advance as tolerated Discharge Activity: Increase activity as tolerated Patient Instructions: Metronidazole (By mouth), Levofloxacin (By mouth), Pantoprazole (By mouth), Biliary Colic (GEN) Activity Restrictions/Additional Instructions: Low-fat diet Emphasis on return to the ER for worsening symptoms Please call your doctor or present to emergency department if your condition worsens or you develop diarrhea, lightheadedness, fatigue or see blood in your stool or black stool. Please immediately present to emergency department if your abdominal pain worsens or you develop fever or chills. Please discuss with your doctor to monitor abdominal aortic aneurysm as you may require surgery down the road. Please keep blood pressure and heart rate log 3 times daily to present to primary care physician next visit for medication adjustment. Should your blood pressure starts going up which will likely happen with improved oral intake you may restart amlodipine initially if blood pressure consistently above 140/90. If your oral intake or urinary output decreases and blood pressure drops below 90 systolic(top number) please present to emergency department as it could be a sign of worsening infection as we have discussed. Discharge Attestations Time Spent in Discharge Care*: greater than 30 min Quality Metrics Clinical Quality Measures During this hospital stay, did patient experience: None Coding Level of Care Code Acute Performance Improvement Consultant for [facility] Fwd Diagnoses Abdominal pain R10.9
[2019-10-03] MEDS: levofloxacin-dextrose 5 % 750 MG/150 ML PREMIX 100 MG IV (10:28)
[2019-10-03 12:26] VITALS: BP 110/65; PULSE 70; RESP 18; TEMP 36.8; O2SAT 94
== END 2019-10-03 12:27 | disposition home or self-care (01) | DRG 446 ==
LOC: ER 21:41 → MEDSURG 22:29
PROVIDERS: Emergency Medicine; Surgery; Admitting Provider Internal Medicine; PCP Family Medicine; Visit Provider Internal Medicine
DX: K81.0 Acute cholecystitis (principal); K52.9 Noninfective gastroenteritis and colitis, unspecified; I71.4 Abdominal aortic aneurysm, without rupture; I25.10 Atherosclerotic heart disease of native coronary artery without angina pectoris; K57.30 Diverticulosis of large intestine without perforation or abscess without bleeding; E78.5 Hyperlipidemia, unspecified; I10 Essential (primary) hypertension; Z87.891 Personal history of nicotine dependence; K29.80 Duodenitis without bleeding; N40.0 Benign prostatic hyperplasia without lower urinary tract symptoms; M19.90 Unspecified osteoarthritis, unspecified site; N28.1 Cyst of kidney, acquired; M54.6 Pain in thoracic spine; K76.0 Fatty (change of) liver, not elsewhere classified; Z79.891 Long term (current) use of opiate analgesic
CPT/HCPCS: 12345; 36415; 74177; 76705; 78226; 78227; 80053; 80061; 82550; 83605; 83690; 85025; 85610; 85730; 87040; 87077; 87186; 87205; 96375; 99282; A9537; C9113; J1170; J1885; J1956; J2405; J2543; J7030; Q9967

== ENCOUNTER → 2019-11-12 09:32 | Outpatient (BNVA) | payer MEDICARE, SELFPAY | PROVIDERS: PCP Family Medicine; Visit Provider Surgery | DX: K81.9 Cholecystitis, unspecified (principal) | CPT/HCPCS: 87635 ==

== ENCOUNTER 2019-11-16 05:43 | Day surgery (SDC) | payer MEDICARE, SELFPAY ==
[2019-11-15 16:02] VITALS: BMI 26.3
[2019-11-16] VITALS (9 sets, daily range): BP systolic 115–164; BP diastolic 82–108; PULSE 67–80; RESP 12–19; TEMP 36.2–36.8; O2SAT 95–100; BMI 26.3
--- NOTE | 2019-11-16 06:22 | W.PM.OPSUD ---
Surgery/Procedure H&P Update DATE OF PROCEDURE: November 16, 2019 DATE H&P PERFORMED: 10/27/19 H&P UPDATE INFORMATION: I have reviewed H&P completed within last 30 days, I have examined patient prior to procedure and No changes to prior documentation PREOP DIAGNOSIS: Cholecystitis PRIMARY INDICATION FOR PROCEDURE: The same PLANNED PROCEDURE: Operation Date: 11/16/19 07:00 Proposed Procedures p Laparoscopic Cholecystectomy 91560 K81.9(Not Applicable) - Arun Saucedo MD
[2019-11-16] MEDS: sodium chloride 0.9% 1,000 ML 30 ML IV (06:36)
--- NOTE | 2019-11-16 06:45 | ECG_ITS ---
[facility] Test Date: 2019-11-16 Pat Name: Vasquez Marsh Department: Room: Gender: Male Dental Hygiene Instructor: : 1940 Requested By: Sancho Dee Order Number: [id number] Tayler MD: Mable Hess M.D. Measurements Intervals [place] Rate: 72 P: 49 VT: 194 QRS: 4 QRSD: 93 T: -20 QT: 384 QTc: 422 Interpretive Statements SINUS RHYTHM No previous ECG available for comparison Electronically Signed On 11-17-2019 21:37:10 CDT by Mable Hess M.D. [email or web address]
--- NOTE | 2019-11-16 07:24 | ANES.PREANE2 ---
Pre-Anesthetic Assessment Pre-Anesthetic Assessment: Height/Weight: Height 1.83 m Weight 87.997 kg Temp Pulse Resp BP Pulse Ox 98.2 F 80 18 164/108 96 11/16/19 06:18 11/16/19 06:18 11/16/19 06:18 11/16/19 06:18 11/16/19 06:18 Preop Diagnosis: Cholecystitis Proposed Procedure: Operation Date: 11/16/19 07:00 Proposed Procedures p Laparoscopic Cholecystectomy 88734 K81.9(Not Applicable) - Arun Saucedo MD Last intake: Intake Last Liquid Date 11/15/19 Last Liquid Time 18:00 Last Solid Date 11/15/19 Last Solid Time 18:00 Social: Social History: No alcohol and No tobacco Exam: Pre-Anes Outpt Exam: alert, oriented x 3, clear to auscultation bilaterally and regular rate & rhythm Airway: MP: 1 Dentition: Full History/ROS: No significant complaints Pulmonary: Pulmonary: None reported CV/HEM: CV/HEM: HTN : : None reported Hepatic: Hepatic: None reported GI: GI: GERD Metabolic: Metabolic: None reported Musc/skel: Musc/skel: None reported Neuropsych: Neuropsych: None reported Anesthetic Plan: ASA status: 3 Anesthesia: General Meds/Allergies Current Medications: Current Medications Generic Name Dose Route Start Last Admin Trade Name Freq PRN Reason Stop Dose Admin Sodium Chloride 1,000 mls @ 30 ml s/hr 11/16/19 06:15 11/16/19 06:36 Sodium Chloride 0.9% IV 11/17/19 06:14 30 mls/hr .Q24H RUPESH Administration PFSH Anesthesia PFSH: Medical History Coronary atherosclerosis Diverticulosis Dyslipidemia Hypertension Surgical History No pertinent past surgical history Family History Other CAD (coronary artery disease) Cancer Hypertension Social History Smoking and tobacco status: former smoker Alcohol intake: current Alcohol intake frequency: holidays/special occasions only Alcohol type: beer Household members: spouse Housing: House Current occupation: Retired [employer] Data Anesthesia Cardiac Studies: No Data to Display
[2019-11-16] MEDS: lidocaine 2% INJ 20 mL INJECTION (08:06)
--- NOTE | 2019-11-16 08:12 | P.OP_ITS ---
Operative Report Date of procedure: November 16, 2019 Pre-op Diagnosis: Cholecystitis Post-op diagnosis: other (Gallbladder mass) Procedure Done: Attempted laparoscopic cholecystectomy aborted due to the presence of fungating gallbladder mass encased with omentum. Biopsies were obtained and sent out for frozen section. Procedure done diagnostic laparoscopy and laparoscopic biopsy from the gallbladder mass Implants: Large piece of Surgicel Specimens removed/disposition: Biopsies of gallbladder mass. Surgeon: Arun Saucedo Customer Assistant: Surgical nayan George Circulating nurse Kristy Anesthesia: General (Dr. Dee) Estimated blood loss (mL): 5 Condition: stable Disposition: same day Brief History: This is a pleasant 79 years old gentleman presented initially to the hospital with acute episode of cholecystitis and he was treated conservatively with the plan to perform an interval laparoscopic cholecystectomy. After history taking physical examination and reviewing the chart and images I did certified addiction counselor the patient for lap esteban possible open and he did agree to proceed accordingly. Procedure: Patient was identified in the holding area and taken back to the operative suite, placed in supine position intubated by anesthesia . Time-out was done verifying the patient's name/date of /planned procedure and destination after the procedure, all were in agreement. SCDs confirmed to be functioning, preoperative antibiotics administered per protocol, and beta parvez protocol was confirmed. Patient was appropriately secured to the table, footboard was applied to the OR table, before prep and drape anesthesia was asked to tilt the table back and forth to make sure that the patient is appropriately secured and she was. Prep and drape of the abdomen was done under the usual sterile technique, followed by that infraumbilical skin incision,skin incision was done by a 15 blade knife, and stay sutures were applied to the fascia and Gracia trocar technique was used to enter the abdominal without injuring any abdominal viscera, started by low flow gas insufflation followed by a high flow, started with a 10 mm laparoscope and under direct vision there was no evidence of any injuries, the scope then switched to a 30? ,10 millimeter scope and under direct visualization 5 millimeter trocar was inserted in the epigastric region followed by two 5 mm trocars were inserted in the right upper quadrant that was done after injection of local lidocaine 2% at all incision sites. Patient was then positioned in the head up and tilted to the left Gallbladder showed a fungating mass extruding at the dome of the gallbladder encased by adherent omentum with adhesions and appears that that the dome of the gallbladder is involving the underlying liver parenchyma concerning for potential invasion, adhesions were taken down and showed a fungating mass and biopsies were obtained for frozen section unfortunately at this point there was no available pathology service for frozen section. Giving my clinical concern with the hard consistency of the mass and the gritty sensation which I am leaning more towards cancer, at this point I decided to abort the procedure as clinically was very concerning for the gallbladder cancer.Due to the hard consistency of the mass and when I delivered the specimen outside I did feel it and it felt hard and had a gritty sensation on cutting. Hemostasis was achieved using Bovie cauterization followed by large piece of S urgicel placed. Suction irrigation was obtained. There was no evidence of peritoneal carcinomatosis or liver lesions The infraumbilical fascial defect was then closed using interrupted PDS sutures using a fascial closure device ;Butch Gomez under direct visualization Gas was allowed to deflate,Trocars were then taken out under direct vision there was no evidence of bleeding Specimen was passed to the circulating nurse for permanent pathology. No drains were placed and the infraumbilical incision as well as all trocar sites were closed by by 4-0 Monocryl to approximate the skin edges of the supraumbilical incision, dressing was applied in the form of Dermabond and the patient patient got extubated and was taken to recovery area in a stable condition. Count of sponges, needles and instruments were completed at the end of the procedure I was present for the whole entire procedure.
--- NOTE | 2019-11-16 08:34 | SUR.PHASEI ---
0826 PATIENT TO PACU FROM OR. RR EVEN AND UNLABORED. PATIENT RESTING COMFORTABLE ON GURNEY, APPEARS IN NO DISTRESS.
--- NOTE | 2019-11-16 09:00 | SUR.PHASEI ---
0850 PATIENT TO OPS. RESTING ON GURNEY. NO DISTRESS. 4 INCISIONS TO ABDOMEN, CDI.
[2019-11-16] MEDS: HYDROcodone-acetaminophen 5-325 mg Tablet 1 TAB PO (09:18)
--- NOTE | 2019-11-16 09:50 | ANE.PACU2 ---
Inpatient post-anesthesia follow up: Airway intact: Yes Vital signs: Temperature 97.1 F Pulse Rate 67 Respiratory Rate 18 Blood Pressure 124/89 Pulse Oximetry 95 Oxygen Delivery Me thod Room Air Oxygen Flow Rate 6 Fraction of Inspir ed Oxygen Hydration adequate: Yes Nausea and vomiting: No Pain level: 1 Mental status: Baseline
[2019-11-16 10:22] LABS: Tumor Marker Alpha Fetoprotein 3.7 ng/mL (0-8.3)
[2019-11-16 10:45] LABS: Carcinoembryonic Antigen 2.4 ng/mL (0.0-4.7)
[2019-11-16 13:45] LABS: Cancer Antigen 19 9 28.17 U/mL (0-35)
--- NOTE | 2019-11-17 17:29 | P.PTHFZ_ITS ---
Frozen Section Notes Specimen(s): Gall bladder mass Gross: The specimen is received fresh in a container labeled with the patient's name and MRN number. The specimen is additionally labeled, gallbladder mass and consists of finney-red tissue measuring 1.5 x 1.5 x 0.5 cm. The cut section of the specimen was submitted in cassette FS 1. Preliminary Impression: Gallbladder, mass, biopsy FS 1: ?Atypical spindle cell lesion. On my initial conversation, I informed Arun aSucedo MD that I wo uld not be available for frozen section right away at 7:53 am and had asked him to submit tissue for stat processing the same day. However, I informed my staff and was available to do the frozen section and rendered the results personally in 19 minutes to Arun Saucedo MD in a timely manner. - Specimen Information Pathologist: Boogie Rivera Date: 11/16/19 Specimen reported at what time: 08:31 - Clinician Specimen collection time: 08:11 Clinician reported to: Arun Saucedo
[2019-12-15 11:05] LABS: Miscellaneous Test See Scanned Lab Rpt
== END 2019-11-16 09:53 | disposition home or self-care (01) ==
PROVIDERS: PCP Family Medicine; Visit Provider Surgery
PROC: 0FT44ZZ Resection of Gallbladder, Percutaneous Endoscopic Approach (ICD-10-PCS; CPT 47562; principal; 2019-11-16 07:00)
PROC: (CPT 49320; 2019-11-16 07:00)
DX: K81.9 Cholecystitis, unspecified (principal); E78.5 Hyperlipidemia, unspecified; I10 Essential (primary) hypertension; Z82.49 Family history of ischemic heart disease and other diseases of the circulatory system; F17.210 Nicotine dependence, cigarettes, uncomplicated
CPT/HCPCS: 47562; 47579; 12345; 36415; 82105; 82378; 86301; 88309; 93005; 96365; J0131; J0690; J2704; J2710; J3010; J3490; J7030

== ENCOUNTER 2019-11-17 10:47 | Outpatient (CLI) | payer MEDICARE, SELFPAY ==
--- NOTE | 2019-11-17 11:00 | MR_ITS ---
WS: [id number] MRI/MRCP OF THE ABDOMEN WITHOUT GADOLINIUM ENHANCEMENT TECHNIQUE: Thin and thick slab MRCP, Axial T2, Coronal MRCP, Axial Dual Echo, and Axial 2-D Fiesta imaging was obtained. Coronal 2-D Fiesta imaging. CLINICAL INFORMATION: abdominal pain COMPARISON: CT abdomen pelvis October 01, 2019 FINDINGS: Some images degraded by motion artifact. T2 hyperintensity with irregularity of the gallbladder fundus with suspected invasive Polypoid lesion . Suggestion of invasion into the surrounding liver and gallbladder fossa extending into the right up per quadrant adjacent to the hepatic flexure. Polypoid lesion extends into the right upper quadrant i n a subhepatic location. Associated edema with some inflammatory stranding and fluid in these locatio ns. Polypoid gallbladder mass measures approximately 4.1 x 2.4 CM. This is irregular and difficult to measure. Findings suspicious for gallbladder carcinoma. Mild diffuse gallbladder wall thickening. Cholelithiasis in the gallbladder at the gallbladder neck. Normal-appearing cystic duct and common bile duct. No significant common bile duct dilatation. Pancre atic duct appears normal. No significant intrahepatic biliary ductal dilatation. No evidence of pancr eatic head mass. Adrenal glands are normal. Left renal cyst. No hydronephrosis. Perinephric inflammatory stranding and be seen with renal insufficiency. Small esophageal hiatal hernia. Normal spleen. Splenic granulomas. No upper abdominal lymphadenopathy. Normal caliber upper abdominal aorta. MR/MR MRCP [id number] Impression: 1. Somewhat limited examination with motion artifact. 2. Suggestion of exophytic polypoid gallbladder mass with invasion into the kendall rrounding liver parenchyma and gallbladder fossa extending into the right upper quadrant. Polypoid gallbladder mass measures approximately 4.1 x 2.4 cm most c ompatible with gallbladder carcinoma. 3. Mild edema and fluid in the surrounding liver and gallbladder fossa. Recomm end CT abdomen pelvis for better anatomic detail. 4. Cholelithiasis with gallstone near the gallbladder neck. 5. Normal caliber common bile duct and pancreatic duct. 6. Pancreatic head appears normal. 7. Stable left renal cyst. 8. No upper abdominal lymphadenopathy.
== END 2019-11-17 10:48 | disposition home or self-care (01) ==
LOC: RADSHAW 10:52
PROVIDERS: PCP Family Medicine; Visit Provider Surgery
DX: R10.9 Unspecified abdominal pain (principal); N28.1 Cyst of kidney, acquired; K80.20 Calculus of gallbladder without cholecystitis without obstruction; R60.0 Localized edema; K82.9 Disease of gallbladder, unspecified
CPT/HCPCS: 74181

== ENCOUNTER 2021-02-23 07:55 | Outpatient (CLI) | payer MEDICARE, SELFPAY ==
--- NOTE | 2021-02-23 08:06 | CT_ITS ---
WS: [id number] CTA THORACIC TECHNIQUE: Contrast enhanced CTA of the thoracic aorta with coronal and sagittal reformatted images a nd maximum intensity projection (MIP) images. CLINICAL INFORMATION: THORACIC AORTIC ANEURYSM W/O RUPTURE COMPARISON: CTA chest September 27, 2019 DLP: 1442.[address] scans at [facility] use at least one of these dose optimization techniques: automated e xposure control; mA and/or kV adjustment per patient size (includes targeted exams where dose is matc hed to clinical indication); or iterative reconstruction. FINDINGS:Stable aneurysmal ascending and proximal descending thoracic aorta with maximum dimension of 4.3 cm in the ascending thoracic aorta. Proximal descending thoracic aorta measures 3.9 cm unchanged . Normal caliber upper abdominal aorta. Tortuous thoracic aorta. Mild chronic emphysematous changes. No acute pulmonary infiltrates. No suspicious pulmonary parenchym al abnormalities. No mediastinal or hilar lymphadenopathy. Aortic calcification. Coronary calcificati on. Moderate calcification great vessel origins. Adrenal glands are normal. Splenic granulomas. Small esophageal hiatal hernia.No axillary lymphadenop athy. Hypertrophic changes thoracic spine with degenerative disc space narrowing in the mid lower tho racic spine. Endplate Schmorl's nodes. CT/CT angio chest [id number] IMPRESSION: 1. Stable aneurysmal dilatation of the ascending and proximal descending thora cic aorta measuring 4.3 cm in the ascending aorta and 3.9 cm in the proximal de scending thoracic aorta. 2. Tortuous thoracic aorta with moderate atheromatous disease. Coronary calcif ication. 3. Both lungs are well aerated with mild chronic emphysematous changes. 4. Small esophageal hiatal hernia.
[2021-02-23 09:26] LABS: Blood Urea Nitrogen 7 mg/dL (8-23)
[2021-02-23] MEDS: iohexol 350 mg/mL 100 mL Btl IV (09:46)
== END 2021-02-23 07:56 | disposition home or self-care (01) ==
PROVIDERS: PCP Family Medicine; Visit Provider Family Medicine
DX: I71.2 Thoracic aortic aneurysm, without rupture (principal); K44.9 Diaphragmatic hernia without obstruction or gangrene
CPT/HCPCS: 36415; 71275; 82565; 84520

== ENCOUNTER → 2021-07-17 09:07 | Outpatient (BNVA) | payer MEDICARE, SELFPAY | PROVIDERS: PCP Family Medicine; Referring Provider Family Medicine; Visit Provider Specialist | DX: G56.03 Carpal tunnel syndrome, bilateral upper limbs (principal); G56.23 Lesion of ulnar nerve, bilateral upper limbs | CPT/HCPCS: 95910; 95913 ==

== ENCOUNTER → 2021-08-06 13:23 | Outpatient (BNVA) | payer MEDICARE, SELFPAY | PROVIDERS: PCP Family Medicine; Visit Provider Nurse Practitioner Family | DX: G56.03 Carpal tunnel syndrome, bilateral upper limbs (principal) | CPT/HCPCS: 73110; 99214 ==

== ENCOUNTER 2021-08-24 06:38 | Day surgery (SDC) | payer MEDICARE, SELFPAY ==
[2021-08-23 11:23] VITALS: BMI 27.6
[2021-08-24] VITALS (8 sets, daily range): BP systolic 115–167; BP diastolic 84–135; PULSE 63–85; RESP 13–18; TEMP 36.1–36.6; O2SAT 95–99
--- NOTE | 2021-08-24 07:01 | P.HPUD_ITS ---
Surgery/Procedure H&P Update DATE OF PROCEDURE: August 24, 2021 DATE H&P PERFORMED: 08/06/21 H&P UPDATE INFORMATION: I have reviewed H&P completed within last 30 days, I have examined patient prior to procedure, No changes to prior documentation and H&P is in [facility] EMR on date indicated PREOP DIAGNOSIS: Right carpal tunnel PLANNED PROCEDURE: Operation Date: 08/24/21 08:15 Proposed Procedures p RIGHT CARPAL TUNNEL RELEASE [id number],G56.00(Right) - Mary Dexter MD Related Problem List Diagnoses (1) Carpal tunnel syndrome on right:
[2021-08-24] MEDS: CELEcoxib 200 mg Capsule 400 MG PO (07:10)
[2021-08-24] MEDS: sodium chloride 0.9% 1,000 ML 30 ML IV (07:10)
[2021-08-24] MEDS: acetaminophen 1,000 MG/100 ML PIGGYBACK 400 MG IV (07:10)
--- NOTE | 2021-08-24 07:40 | ANES.PREANE2 ---
Pre-Anesthetic Assessment Height/Weight: Height 1.83 m Weight 92.533 kg Temp Pulse Resp BP Pulse Ox 97.8 F 73 18 167/103 95 08/24/21 06:51 08/24/21 06:51 08/24/21 06:51 08/24/21 06:51 08/24/21 06:51 Preop Diagnosis: Right carpal tunnel Operation Date: 08/24/21 08:15 Proposed Procedures p RIGHT CARPAL TUNNEL RELEASE [id number],G56.00(Right) - Mary Dexter MD Familial anesthetic complications: none Was Beta Pasquale taken within 24 hours: N/A Was Clonidine taken within 24 hours: N/A Last intake: Intake Last Liquid Date 08/23/21 Last Liquid Time 20:00 Last Solid Date 08/23/21 Last Solid Time 20:00 Social No alcohol and No tobacco Exam alert, oriented x 3, clear to auscultation bilaterally and regular rate & rhythm Airway Submandibular: within normal limits Cervical ROM: within normal limits Mallampati: Class II Comments: Comments: missing teeth Pulmonary None reported CV/HEM Coronary Artery Disease and Hypertension Descending aortic aneurysm BPH Hepatic None reported GI Hx of duodenitis Metabolic None reported Musc/skel Osteoarthritis/DJD carpal tunnel Neuropsych Neuropathy Anesthetic Plan ASA status: 2 Anesthesia: Anesthesia Evaluation and General Other: We discussed risk and benefits of general anesthesia including PONV, sore throat (sometimes severe), corneal abrasion, positioning and peripheral nerve injuries, life threatening allergic reaction, post operative ICU admission requiring prolonged intubation, aspiration, stroke, heart attack, , and rare incidences of recall. Patient consents to proceed with general anesthesia. Risk of > 500 ml blood loss (7ml/kg in children): No Medications/Allergies Home Medications Medication Instructions Recorded Confirmed Last Taken Type pravastatin 40 mg tablet 40 mg PO QPM 09/27/19 08/24/21 08/23/21 History (Pravachol) amlodipine 10 mg tablet 10 mg PO DAILY 11/15/19 08/24/21 08/24/21 History benazepril 40 mg tablet 40 mg PO DAILY 11/15/19 08/24/21 08/23/21 History hydrocodone 5 mg-acetaminophen 325 1 tab PO Q4H PRN 7 Days #30 tab 08/24/21 Unknown Rx mg tablet Allergies Allergy/AdvReac Type Severity Reaction Status Date / Time No Known Allergies Allergy Verified 08/23/21 11:21 PFS Anesthesia Medical History Coronary atherosclerosis Diverticulosis Dyslipidemia Hypertension Surgical History No pertinent past surgical history Family History Other CAD (coronary artery disease) Cancer Hypertension Social History Smoking and tobacco status: former smoker Alcohol intake: current Alcohol intake frequency: holidays/special occasions only Alcohol type: beer Household members: spouse Housing: House Current occupation: Retired [employer] Data Anesthesia Cardiac Studies: No Data to Display
--- NOTE | 2021-08-24 07:50 | PM.OP ---
Operative Report Date of procedure: August 24, 2021 Pre-op diagnosis: Right carpal tunnel Post-op diagnosis: Right carpal tunnel Post-op findings: Very tight carpal canal with adhesion of the median nerve to the transverse carpal ligament. Procedure done: Right carpal tunnel release Implants: None Pathology: none sent Surgeon: Mary Dexter Staking Engineer: None Anesthesia: General (LMA, ASA 2) Estimated blood loss (mL): 0 Tourniquet time (min): 35 (At 250 mmHg) IV fluids (mL): 500 Urine output (mL): 0 (No Lopez) Complications: None Findings: Severe compression across the carpal canal with adherence of the median nerve to the undersurface of the transverse carpal ligament Condition: stable Disposition: PACU (Then discharge to home with family) Brief History: This 81-year-old gentleman presented to the clinic with complaints consistent with carpal tunnel syndrome. He was seen there on August 06, 2021. Nerve conduction studies were consistent with carpal tunnel syndrome. The patient had complaints of numbness and tingling in his hand, primarily in the thumb index and long fingers. These complaints increased with driving or working. He stated the paresthesias and pain have been present for approximately a year. Procedure: The patient was brought to the operating theater. The patient had general anesthesia per LMA, ASA 2. The tourniquet was elevated to 250 mmHg for a total tourniquet time of 35 minutes. The patient was also given Ancef 2 g preoperatively. The arm was then prepped and draped with DuraPrep in usual fashion with the arm draped free. A surgical pause was performed. At the time, the surgical pause, we confirmed the site and side of surgery. We also confirmed the patient's identity, appropriate and timely administration of preoperative antibiotics and preoperative surgical markings. An incision was then made along the thenar crease. The incision crossed the wrist joint in a curvilinear fashion. Dissection continued through skin and soft tissues using a scalpel. The palmaris longus was identified along with the transverse carpal ligament. Each of these was released carefully to avoid injury to the median nerve. We were able to dissect gently into the carpal canal which was noted to be quite tight with significant compression across the median nerve. The median nerve was noted to be adhered to the undersurface of the transverse carpal ligament. This was gently peeled off of the ligament utilizing a [place] elevator. The nerve was visualized and was an hourglass shape. The canal was subsequently palpated to assure there was no bony encroachment upon the canal. There was a quite thickened fibrous tissue within the canal, and this was opened longitudinally as well. The canal was then palpated distally and proximally to assure that my small finger was passed easily without impingement. Finding this to be so, attention was directed to closure. The wound was irrigated with ropivacaine plain. It was then closed with 3-0 nylon in an interrupted mattress fashion. Sterile dressing was then placed consisting of Dermabond, OpSite,, fluffed fluffs, sterile soft roll, and an Eulalio wrap. The tourniquet was released after 35 minutes. There were no complications. There were no specimens. The procedure was well tolerated. Plan is the patient will be discharged home. Related Problem List Diagnoses (1) Carpal tunnel syndrome on right:
[2021-08-24] MEDS: ceFAZolin 2,000 MG in sodium chloride 0.9% (plus) 50 ML 100 MG IV (08:09)
--- NOTE | 2021-08-24 14:04 | ANE.PACU2 ---
Inpatient post-anesthesia follow up: Airway intact: Yes Vital signs: Temperature 97.2 F Pulse Rate 64 Respiratory Rate 18 Blood Pressure 154/87 Pulse Oximetry 98 Oxygen Delivery Me thod Room Air Oxygen Flow Rate Fraction of Inspir ed Oxygen Hydration adequate: Yes Nausea and vomiting: No Pain level: 1 Mental status: Baseline
== END 2021-08-24 10:15 | disposition home or self-care (01) ==
PROVIDERS: PCP Family Medicine; Visit Provider Specialist
PROC: (CPT 64721; principal; 2021-08-24 08:05)
DX: G56.01 Carpal tunnel syndrome, right upper limb (principal); I25.10 Atherosclerotic heart disease of native coronary artery without angina pectoris; I10 Essential (primary) hypertension; N40.0 Benign prostatic hyperplasia without lower urinary tract symptoms; E78.5 Hyperlipidemia, unspecified
CPT/HCPCS: 64721; J1100; J2405; J2704; J3010; J3490; J7030

== ENCOUNTER → 2021-09-06 08:57 | Outpatient (BNVA) | payer MEDICARE, SELFPAY | PROVIDERS: PCP Family Medicine; Visit Provider Nurse Practitioner Family | DX: Z48.89 Encounter for other specified surgical aftercare (principal) | CPT/HCPCS: 99024 ==

== ENCOUNTER 2022-07-22 01:23 | Inpatient (IN) | payer MEDICARE, SELFPAY ==
[2022-07-22] VITALS (46 sets, daily range): BP systolic 98–172; BP diastolic 11–137; PULSE 64–157; RESP 2–28; TEMP 36.5–37.2; O2SAT 87–98; BMI 27.8
--- NOTE | 2022-07-22 01:32 | ECG_ITS ---
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 Measurements Intervals [place] Rate: 153 P: 0 UT: 0 QRS: 56 QRSD: 108 T: -73 QT: 265 QTc: 423 Interpretive Statements ATRIAL FIBRILLATION WITH RAPID VENTRICULAR RESPONSE ST DEVIATION AND MODERATE T-WAVE ABNORMALITY, CONSIDER LATERAL ISCHEMIA [-0.1+ mV T-WAVE IN I/aVL/V5/V6] ST DEVIATION AND MODERATE T-WAVE ABNORMALITY, CONSIDER INFERIOR ISCHEMIA [-0.1+ mV T-WAVE IN II/aVF] CRITICAL TEST RESULT Compared to ECG 11/16/2019 06:54:40 T-wave abnormality now present Possible ischemia now present Sinus rhythm no longer present Electronically Signed On 07-22-2022 10:58:15 CDT by Saniya Bonner M.D. [id number] rosa
--- NOTE | 2022-07-22 01:34 | XRR_ITS ---
PROCEDURE INFORMATION: Exam: XR Chest Exam date and time: 07/22/2022 1:41 AM Age: 81 years old Clinical indication: Pain; Chest pressure; Additional info: Cp TECHNIQUE: Imaging protocol: Radiologic exam of the chest. Views: 1 view. COMPARISON: CT angio chest [id number] 02/23/2021 9:41 AM FINDINGS: Lungs: Unremarkable. No consolidation. Pleural spaces: Unremarkable. No pleural effusion. No pneumothorax. Heart/Mediastinum: Unremarkable. No cardiomegaly. Bones/joints: Unremarkable. XR/XR chest 1V portable [id number] IMPRESSION: No acute findings.
--- NOTE | 2022-07-22 01:36 | W.ED.CHESTPA ---
HPI - Chest Pain General: Chief Complaint: Chest Pain Stated Complaint: Jaw pain Time Seen by Provider: 07/22/22 01:26 Source: patient Mode of arrival: ambulatory Limitations: no limitations History of Present Illness: 81-year-old male states he has been having right-sided jaw pain that radiates into his chest started roughly 3 hours ago he denies any pain with palpation or pain with movement states it feels like it is radiating to his jaw he also feels like his heart is racing he has no history of A-fib he is in A-fib with RVR here with heart rate in the 150s. He denies any shortness of breath he rates his pain a 5 out of 10 currently denies any vomiting or diarrhea. Associated symptoms: Reports palpitations; Deny abdominal pain, dyspnea, fever(s), nausea or vomiting Review of Systems Const: Denies: fever(s), chills, body aches or change in appetite ENMT: Denies: throat pain or dental pain Card: Reports: chest pain and palpitations Resp: Denies: dyspnea GI: Denies: abdominal pain, nausea, vomiting or diarrhea Musc: Denies: neck pain or back pain Skin/Breast: Denies: rash Neuro: Denies: headache(s) All/Imm: Denies: urticaria PFSH ED PFSH: Medical History (Updated 07/22/22 @ 02:24 by Margaret Daniel MD) Coronary atherosclerosis Diverticulosis Dyslipidemia Hypertension Surgical History No pertinent past surgical history Family History Other CAD (coronary artery disease) Cancer Hypertension Social History Smoking and tobacco status: former smoker Alcohol intake: current Alcohol intake frequency: holidays/special occasions only Alcohol type: beer Substance/Drug Use: never Household members: spouse Housing: House Current occupation: Retired [employer] Physical Exam Const: COMMON NORMALS: patient oriented x3 HENMT: COMMON NORMALS: normocephalic and atraumatic HEAD & SCALP: normocephalic and atraumatic Eye: COMMON NORMALS: Equal, round and reactive pupils present and EOMs intact bilaterally PUPIL: Yes Equal, round and reactive pupils present Neck/C-Spine: COMMON NORMALS: full ROM and supple Chest: COMMONS NORMALS: normal inspection of the chest and normal palpation of entire chest wall Resp: COMMON NORMALS: normal respiratory effort, No retractions, No use of accessory muscles and clear to auscultation bilaterally AUSCULTATION: clear to auscultation bilaterally Cardio: COMMON NORMALS: No murmurs present (Cardio) RATE: tachycardic RHYTHM: abnormal rhythm irregularly irregular GI: COMMON NORMALS: Normal to inspection, nondistended, normoactive bowel sounds present, Soft to palpation, non-tender and no masses PALPATION: Yes Soft to palpation Extremity: COMMON NORMALS: normal to inspection and full ROM Neuro: COMMON NORMALS: patient oriented x3, moves all extremities and no focal motor deficits Psych: COMMON NORMALS: mental status grossly normal, Normal thought process present and cooperative THOUGHT PROCESS: Normal thought process present Skin: COMMON NORMALS: no rashes or lesions noted and no wounds GENERAL SKIN EXAM: no rashes or lesions noted Course Vital Signs: Vital signs: Vital Signs Temperature 97.7 F 07/22/22 01:30 Pulse Rate 104 H 07/22/22 02:29 Respiratory Rate 16 07/22/22 02:29 Blood Pressure 126/83 07/22/22 02:29 Pulse Oximetry 94 07/22/22 02:29 Oxygen Delivery Me thod Room Air 07/22/22 02:00 MDM - Chest Pain Medical Decision Making Patient presents with A-fib with RVR along with some chest pain his heart rate is improved here on a Cardizem drip he does have an elevated troponin which could be due to his fast heart rate his pain is resolved here we will give him a dose of Lovenox spoke to hospitalist will admit to cardiac stepdown. Medical Records I reviewed the patient's medical records. Lab Data I reviewed the patient's lab results. 07/22/22 01:35 07/22/22 01:35 Radiology Impressions Chest X-Ray 07/22/22 01:34 IMPRESSION: No acute findings. Laboratory Results WBC 7.8 10^3/uL (4.0-10.0) 07/22/22 01:35 RBC 5.31 10^6/uL (4.1-5.3) H 07/22/22 01:35 Hgb 15.8 g/dL (11.7-16.6) 07/22/22 01:35 Hct 49.3 % (42.0-52.0) 07/22/22 01:35 MCV 92.8 fl (80-94) 07/22/22 01:35 MCH 29.8 pg (28.0-34.0) 07/22/22 01:35 MCHC 32.0 g/dL (30.0-36.0) 07/22/22 01:35 RDW 14.2 % (12.1-15.1) 07/22/22 01:35 Plt Count 254 10^3/cmm (130-400) 07/22/22 01:35 MPV 9.9 fL (7.4-10.4) 07/22/22 01:35 Neut % (Auto) 62.2 % 07/22/22 01:35 Lymph % (Auto) 25.9 % 07/22/22 01:35 [place] % (Auto) 8.6 % 07/22/22 01:35 Eos % (Auto) 2.3 % 07/22/22 01:35 Baso % (Auto) 0.6 % 07/22/22 01:35 Neut # (Auto) 4.82 10^3/uL (1.8-7.7) 07/22/22 01:35 Lymph # (Auto) 2.0 10^3/uL (0.8-4.8) 07/22/22 01:35 [place] # (Auto) 0.7 10^3/uL (0.2-0.9) 07/22/22 01:35 Eos # (Auto) 0.2 10^3/uL (0.0-0.8) 07/22/22 01:35 Baso # (Auto) 0.1 10^3/uL (0.0-0.1) 07/22/22 01:35 Nucleated RBC % (auto) 0 % 07/22/22 01:35 Nucleated RBCs # 0.0 /100WBC 07/22/22 01:35 PT 13.70 SECONDS (12.1-14.9) 07/22/22 01:35 INR 1.02 (0.8-1.2) 07/22/22 01:35 Sodium 140 mmol/L (136-145) 07/22/22 01:35 Potassium 4.2 mmol/L (3.5-5.1) 07/22/22 01:35 Chloride 104 mmol/L (98-107) 07/22/22 01:35 Carbon Dioxide 23 mmol/L (22-29) 07/22/22 01:35 Anion Gap 17.2 (5-19) 07/22/22 01:35 BUN 14 mg/dL (8-23) 07/22/22 01:35 Creatinine 0.9 mg/dL (0.7-1.2) 07/22/22 01:35 GFR Calculation Not Reportable 07/22/22 01:35 Glucose 93 mg/dL (65-115) 07/22/22 01:35 Calculated Osmolality 290 mOsm/kg (285-295) 07/22/22 01:35 Calcium 9.5 mg/dL (8.5-10.5) 07/22/22 01:35 Total Bilirubin 0.5 mg/dL (0.15-1.2) 07/22/22 01:35 AST 20 U/L (0-40) 07/22/22 01:35 ALT 21 U/L (0-41) 07/22/22 01:35 Alkaline Phosphatase 80 U/L (40-130) 07/22/22 01:35 Troponin T Baseline 148 ng/L (0-15) H* 07/22/22 01:35 Total Protein 7.9 g/dL (6.6-8.7) 07/22/22 01:35 Albumin 4.2 g/dL (3.5-5.2) 07/22/22 01:35 Globulin 3.7 g/dL (1.3-4.6) 07/22/22 01:35 EKG Data EKG 1: I personally reviewed and interpreted this EKG as follows: EKG interpretation date: 07/22/22 EKG interpretation time: 01:32 Interpretation: afib with rvr hr [address] or t wave abnormalities qrs 108 qtc 352 Discharge Plan Discharge Patient Disposition: Admitted As Inpatient Admit Provider: Davina Peterson Clinical Impression: Atrial fibrillation with RVR, Chest pain Condition: Stable Coding Level of Care Code ED Wrecker Driver for Chg Jewel
[2022-07-22] MEDS: aspirin 81 mg Chew Tablet 324 MG PO (01:43)
[2022-07-22] MEDS: dilTIAZem 5 mg/mL SDV 5 mL 15 MG IVP (01:44)
[2022-07-22] MEDS: nitroglycerin 0.4 mg sublingual Tablet SUBLINGUAL (01:44)
[2022-07-22] MEDS: dilTIAZem 100 MG in sodium chloride 0.9% (add-van) 100 ML IV (01:45)
[2022-07-22 01:49] LABS: Basophils # 0.1 10^3/uL (0.0-0.1); Basophils % 0.6 %; Eosinophils # 0.2 10^3/uL (0.0-0.8); Eosinophils % 2.3 %; Hematocrit 49.3 % (42.0-52.0); Hemoglobin 15.8 g/dL (11.7-16.6); Lymphocytes % 25.9 %; Mean Corpuscular Hemoglobin 29.8 pg (28.0-34.0); Mean Corpuscular Volume 92.8 fl (80-94); Mean Platelet Volume 9.9 fL (7.4-10.4); Monocytes # 0.7 10^3/uL (0.2-0.9); Monocytes % 8.6 %; Neutrophils # 4.82 10^3/uL (1.8-7.7); Neutrophils % 62.2 %; Nucleated Red Blood Cells % 0 %; Platelet Count 254 10^3/cmm (130-400); Red Blood Count 5.31 10^6/uL (4.1-5.3); Red Cell Distribution Width 14.2 % (12.1-15.1); White Blood Count 7.8 10^3/uL (4.0-10.0)
[2022-07-22] MEDS: sodium chloride 0.9% 1,000 ML 999 ML IV (01:57)
[2022-07-22 02:03] LABS: INR 1.02 (0.8-1.2)
[2022-07-22 02:13] LABS: Alanine Aminotransferase 21 U/L (0-41); Albumin Level 4.2 g/dL (3.5-5.2); Alkaline Phosphatase 80 U/L (40-130); Anion Gap 17.2 (5-19); Aspartate Amino Transferase 20 U/L (0-40); Blood Urea Nitrogen 14 mg/dL (8-23); Calcium 9.5 mg/dL (8.5-10.5); Carbon Dioxide 23 mmol/L (22-29); Chloride 104 mmol/L (98-107); Globulin 3.7 g/dL (1.3-4.6); Glucose 93 mg/dL (65-115); Osmolality Calculated 290 mOsm/kg (285-295); Potassium 4.2 mmol/L (3.5-5.1); Sodium 140 mmol/L (136-145); Total Bilirubin 0.5 mg/dL (0.15-1.2); Total Protein 7.9 g/dL (6.6-8.7)
[2022-07-22 02:14] LABS: Troponin(5th) Baseline 148 ng/L (0-15)
[2022-07-22] MEDS: ondansetron 2 mg/ML SDV 2 mL 4 MG IVP (02:25)
[2022-07-22] MEDS: morphine 4 mg/mL SDV 1 mL IVP (02:26)
[2022-07-22] MEDS: enoxaparin 100 mg/mL Syringe 90 MG SUBCUT ×2 (02:26→14:46)
--- NOTE | 2022-07-22 02:37 | PM.HP ---
Providers/Chief Complaint Admitting Physician: Davina Peterson MD Primary Care Provider: Cuba Plasencia Chief Complaint: Jaw pain History of Present Illness Vasquez Marsh is a 81 year old male With past medical history of diverticulosis, dyslipidemia, hypertension, denies a history of cardiac disease, former smoker presented to the hospital today with complaint of right-sided jaw pain. He states his gums on the right side were hurting. He is edentulous and does not have any dental infection at this time. He says he even took out his teeth but that did not take away the pain. He also had chest pain on his right side that was pretty constant but Radiating to his jaw area. He did tell the ER that he was having palpitations however he told me that he did not feel like his heart was racing at all. He reports cardiac disease history in his mother and brother. Does not know many more details other than that. He is a former smoker. He says nothing really made the pain better or worse. Typically he says he is pretty active and does not get shortness of breath on exertion. The chest pain episode today was not associated with diaphoresis, nausea vomiting or any other symptoms. At this time of encounter he is chest pain-free. Denies recent illness. Considers himself pretty healthy. On arrival to ER blood pressure 126/83, pulse 104, temperature 97.7, saturating 94% on room air. EKG was done which showed A-fib with RVR with a heart rate of 153. He did have some T wave inversions in the lateral leads. Initial troponin 143. 2-hour 6-hour troponin pending at this time. 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 Patient was given 15 of Cardizem IV push x1 and started on a Cardizem drip. Currently he is on 15 mg/h with heart rate still uncontrolled in the 1 teens. He was also given therapeutic Lovenox dose x1, 1 L normal saline bolus. Medications/Allergies Home Medications Medication Instructions Recorded Confirmed Last Taken Type pravastatin 40 mg tablet 40 mg PO QPM 09/27/19 07/22/22 07/21/22 20:00 History (Pravachol) amlodipine 10 mg tablet 10 mg PO DAILY 11/15/19 07/22/22 07/21/22 08:00 History benazepril 40 mg tablet 40 mg PO DAILY 11/15/19 07/22/22 07/21/22 08:00 History Allergies Allergy/AdvReac Type Severity Reaction Status Date / Time aspirin AdvReac Unknown Verified 07/22/22 01:55 PFSH Acute PFSH: Medical History (Updated 07/22/22 @ 03:50 by Davina Peterson MD) Coronary atherosclerosis Diverticulosis Dyslipidemia Hypertension Surgical History No pertinent past surgical history Family History Other CAD (coronary artery disease) Cancer Hypertension Social History Smoking and tobacco status: former smoker Alcohol intake: current Alcohol intake frequency: holidays/special occasions only Alcohol type: beer Substance/Drug Use: never Household members: spouse Housing: House Current occupation: Retired [employer] Vitals/I&O/Wt Last Vital Signs Temp 97.7 F 07/22/22 01:30 Pulse 104 H 07/22/22 02:29 Resp 16 07/22/22 02:29 BP 126/83 07/22/22 02:29 Pulse Ox 94 07/22/22 02:29 O2 Del Method Room Air 07/22/22 02:00 07/21/22 07/21/22 07/22/22 14:59 22:59 06:59 Intake Total 2.250 / 2.250 Balance 2.250 / 2.250 Weight last 48 hrs Weight 92.986 kg Physical Exam Narrative: General: Alert oriented x3, patient seen laying in bed appearing comfortable at this time. On room air. No acute distress HEENT: Normocephalic, atraumatic, EOMI, Cardio: Irregularly irregular, tachycardic, normal S1-S2, Respiratory: Clear to auscultation bilaterally GI: Abdomen soft, nontender, bowel sounds + Behavior: Appropriate and cooperative Extremities: No edema noted. Data 07/22/22 01:35 07/22/22 01:35 A&P Assessment and plan (1) Atrial fibrillation with RVR: (2) Chest pain: (3) Descending aortic aneurysm: (4) Hyperlipidemia: (5) NSTEMI (non-ST elevated myocardial infarction): Plan #New onset A-fib with RVR #Former smoker #Chest pain radiating to the jaw #NSTEMI #Dyslipidemia #Hypertension #Ascending aortic aneurysm -Presented with A-fib with RVR with rate of 158. Given 15 Cardizem push and started on Cardizem drip ? Continue Cardizem drip for now and transition to oral once rate controlled ? Add Lopressor 25 twice daily ? Stop amlodipine at this time as patient will be transition to Cardizem. ? Continue Benzepril 40 daily ? Continue pravastatin 40 daily ? Baseline troponin 143. 2-hour troponin and 6-hour troponin pending at this time. T wave inversions noted on EKG in lateral leads. Possibly secondary to demand ischemia due to high heart rate. ? Patient is chest pain-free at this time. ? I will continue on therapeutic Lovenox ? Add aspirin ? Consider cardiology consultation. ? Check hemoglobin A1c, TSH -2021 he had a CTA done which showed Stable aneurysmal dilatation of the ascending and proximal descending thoracic aorta measuring 4.3 cm in the ascending aorta and 3.9 cm in the proximal descending thoracic aorta. Patient clinically does not have any symptoms of aortic dissection at this time. ? He has never had a stress test before. ? Due to clinical presentation, EKG changes, elevated troponin he may require angiogram prior to discharge - Check echo Full code SCDs, on therapeutic Lovenox which should suffice at this time for DVT prophylaxis Attestations Medical Necessity Statement*: Greater than 2 midnight stay for management of A-fib with RVR Coding Level of Care Code G0425 (30 min) TH Encounter Time (min): 45 Patient seen via Telehealth in the acute care setting (hospital or ED location) by agreement and consent of patient or patient technical service representative. Telehealth technology used during the visit includes video and audio. This patient encounter is appropriate and reasonable under the circumstances given the patient?s particular presentation at this time. The patient has been advised of the potential risks and limitations of this mode of treatment (including but not limited to the absence of in-person examination at this time) and has agreed to be treated by an off-site physician for this visit. If deemed clinically necessary from this telehealth visit, or if condition or consent for telehealth visit changes, an in-person visit will be arranged. For this encounter, total time for the origination of telehealth care on this date is as shown. Diagnoses Atrial fibrillation with RVR I48.91 Chest pain R07.9 Descending aortic aneurysm I71.9 Hyperlipidemia E78.5 NSTEMI (non-ST elevated myocardial infarction) I21.4
--- NOTE | 2022-07-22 03:34 | ECG_ITS ---
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 Measurements Intervals [place] Rate: 101 P: 0 TX: 0 QRS: 45 QRSD: 104 T: -46 QT: 334 QTc: 433 Interpretive Statements ATRIAL FIBRILLATION WITH RAPID VENTRICULAR RESPONSE VOLTAGE CRITERIA FOR LVH [MEETS CRITERIA IN ONE OF: R(aVL), S(V1), R(V5), R(V5/V6)+S(V1)] INFERIOR MYOCARDIAL INFARCTION , OF INDETERMINATE AGE MODERATE T-WAVE ABNORMALITY, CONSIDER LATERAL ISCHEMIA Compared to ECG 07/22/2022 01:32:50 Left ventricular hypertrophy now present Myocardial infarct finding now present T-wave abnormality still present Possible ischemia still present Electronically Signed On 07-22-2022 11:10:21 CDT by Saniya Bonner M.D. [id number]
--- NOTE | 2022-07-22 03:53 | USCV_ITS ---
Vasquez Marsh Age: 81 Gender: M : 1940 Exam Date: 07/22/2022 11:03 Ordering Phys: Davina Peterson MD Technologist: Aditya Ríos Exam Location: [facility] Indication: sob BP: 134 / 72 HR: 80 Rhythm: Sinus Technical Quality: Adequate MEASUREMENTS (Male / Female) Normal Values 2D ECHO LVOT Diameter 2.1 cm LV Ejection Fraction MOD 2C 53.2 % LV Ejection Fraction 2C AL 50.6 % LA Diameter 4.6 cm Aorta at Sinotubular Diameter 3.7 cm IVC Diameter 2.5 cm M-MODE Aortic Annulus Diameter 4.1 cm LA Ao Ratio MM 1.1 MV E Point Septal Separation 1.5 cm DOPPLER AV Peak Velocity 89.0 cm/s LVOT Peak Velocity 63.0 cm/s AV Area Cont Eq vti 2.2 cm squared AV Area Cont Eq pk 2.6 cm squared MV Area PHT 4.8 cm squared Mitral E to A Ratio 2.8 MV E' Velocity 118.0 cm/s Mitral E to LV E' Septal Ratio 11.8 TR Peak Velocity 105.0 cm/s TR Peak Gradient 4.4 mmHg TV Peak E Velocity 82.0 cm/s RV Acceleration Time 0.1 s FINDINGS Left Ventricle Left ventricle is normal in size. LV systolic function is normal with EF of 50-55%. Regional wall motion abnormalities are difficult to assess because of poor ultrasonic windows. Diastolic function is indeterminate because of atrial fibrillation Right Ventricle Normal in size and function Right Atrium Normal in size Left Atrium Normal in size Mitral Valve Moderate mitral annular calcification. Mild mitral regurgitation. Aortic Valve Aortic valve is thickened. No significant stenosis. Mild aortic regurgitation. Tricuspid Valve Trace tricuspid regurgitation. Insufficient TR jet to calculate RVSP Pulmonic Valve Not well visualized Pericardium Normal Aorta Ascending aorta is dilated and measures 3.9 cm in diameter. IVC Not well visualized CONCLUSIONS LV systolic function is normal with EF of 50-55% Diastolic function is indeterminate because of atrial fibrillation Mild mitral regurgitation. Mild aortic regurgitation Trace tricuspid regurgitation Ascending aorta is dilated and measures 3.9 cm in diameter. Arturo Solares MD (Electronically Signed) Final Date: 23 July 2022 10:55 S
[2022-07-22] MEDS: pantoprazole 40 mg SDV IVP (04:18)
[2022-07-22] MEDS: sodium chloride 0.9% 1,000 ML 75 ML IV (04:18)
[2022-07-22 04:41] LABS: Thyroid Stimulating Hormone 4.53 uIU/mL (0.27-4.20)
[2022-07-22 04:46] LABS: Troponin 5 2HR Delta -8.7 ABS# (0-10)
[2022-07-22 04:47] LABS: Troponin 5 2HR 139.3 ng/L (0-15)
[2022-07-22 05:00] LABS: Estmated Average Glucose 111; Hemoglobin A1C 5.5 % (4.0-6.0)
--- NOTE | 2022-07-22 07:34 | ECG_ITS ---
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 Measurements Intervals [place] Rate: 85 P: 0 MN: 0 QRS: 35 QRSD: 106 T: -33 QT: 366 QTc: 436 Interpretive Statements ATRIAL FIBRILLATION ST DEVIATION AND MODERATE T-WAVE ABNORMALITY, CONSIDER LATERAL ISCHEMIA [-0.1+ mV T-WAVE IN I/aVL/V5/V6] Compared to ECG 07/22/2022 03:40:26 Left ventricular hypertrophy no longer present Myocardial infarct finding no longer present T-wave abnormality still present Possible ischemia still present Electronically Signed On 07-22-2022 11:09:46 CDT by Saniya Bonner M.D. [id number]
[2022-07-22] MEDS: metoprolol tartrate 25 mg Tablet PO (08:44)
[2022-07-22 08:49] LABS: Troponin 5 6HR 154.6 ng/L (0-15); Troponin 5 6HR Delta 6.6 ng/L (0-12)
--- NOTE | 2022-07-22 11:11 | PC.NURSE ---
Stop cardizem at 1105. He was currently on cardizem 5mg/hr.
--- NOTE | 2022-07-22 12:35 | ECG_ITS ---
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 Interpretive Statements NAME OF STUDY: LEXISCAN SESTAMIBI STRESS TEST INDICATION: [NONSTEMI] Procedure: At the baseline, the blood pressure was 149/46 mmHg with a heart rate of 104 bpm. The electrocardiogram showed atrial fibrillation with RVR. No significant ST-T wave changes. The Lexiscan was infused over a period of 20 seconds. A total of 0.4 mg of Lexiscan was infused. The stress phase was continued for a total of 5 minutes. Heart rate was at the end of stress phase was 128 bpm and a blood pressure of 172/89 mmHg. The EKG at the peak infusion revealed A-fib with RVR with no significant ST-T wave changes. Sestamibi was injected 20 seconds after the Lexiscan infusion. Blood pressure at the end of recovery phase was 167/40 mmHg with a heart rate of 124 bpm. Conclusion: 1. Normal EKG response to Lexiscan infusion 2. No Lexiscan induced chest pain or cardiac arrhythmia. 3. Normal blood pressure and heart rate response. 4. Sestamibi/sestamibi perfusion scan pending; see separate report. Electronically Signed On 08-02-2022 15:10:00 CDT by Arturo Solares M.D. [id number]
[2022-07-22 12:56] LABS: D Dimer 1.16 ug/mIFEU (0-0.59)
[2022-07-22 13:05] LABS: Iron 53 ug/dL (59-158); Percent Saturation 18.5 % (20-50); Total Iron Binding Capacity 286 mcg/dl; Unsaturated Iron Binding 233 ug/dL (112-347)
[2022-07-22 13:18] LABS: Vitamin B12 305 pg/mL (232-1245)
--- NOTE | 2022-07-22 13:45 | W.PM.EVENTAC ---
Event Note Event Note: Admitted earlier today morning. Seen with family at bedside. Patient lying comfortably in bed on room air. Continues to remain in A-fib but rate controlled. Denies any nausea, vomiting, headache. States jaw pain has subsided now. Currently patient is n.p.o. on states he is hungry and asking for meals. Blood work appreciated for white count 7.8, hemoglobin of 15.8, normal CMP with baseline troponin of 148 with delta of 6.6 and 6 hours. On examination HEENT: Left pupil slightly larger than right, both sluggishly reactive. Patient has history of cataract surgeries in past. Chest: Bilateral normal vesicular breath sounds, no added sound. CVS: S1-S2 irregularly irregular, rate controlled, soft pansystolic murmur at apex. Neuro: Power bilaterally equal, no focal deficit, no facial asymmetry or slurred speech Pupils as above. Plan: Increase metoprolol to 50 mg twice daily. Goal of pressure less than 140/90 mmHg. Continue with full dose Lovenox 1 mg/kg body weight. Discussed in detail with patient for need for anticoagulation Outpatient for stroke prevention. He is agreeable. We will switch to Eliquis on discharge. Start on cardiac diet for now. Plan for n.p.o. after midnight for cardiac stress test in a.m. to rule out ischemia given concerns for non-ST elevation CT on admission. Check lipid panel, A1c. Start on aspirin 81 mg oral daily, atorvastatin 80 mg daily. Echocardiogram done. Results are awaited. CT head to rule out stroke given anisocoria. Check iron panel, A1c, lipid panel, TSH, vitamin B12, folate, D-dimer. Care discussed in detail with family at bedside. All the questions were answered. Other Coding Information Prolonged care (total time indicated above or notated here) (40 minutes) A-fib with RVR which is rate controlled now, non-ST elevation CT, anisocoria in setting of new A-fib to rule out stroke
--- NOTE | 2022-07-22 13:51 | CT_ITS ---
WS: [id number] CT HEAD NONCONTRAST HISTORY: Anisocoria, new onset A-fib TECHNIQUE: Contiguous axial imaging performed through the brain in 2.5 mm imaging. Bone and soft tiss ue windows. Sagittal and coronal reformats reviewed. All CT scans at [facility] use at least one of these dose optimization techniques: automated exposure control; mA and/or kV adjustment per pa tient size (includes targeted exams where dose is matched to clinical indication); or iterative recon struction. DLP: 1090.35 mGy.cm COMPARISON: 05/17/2016 No acute intracranial hemorrhage, midline shift or mass effect. Mild atrophy with moderate to severe small vessel ischemic changes throughout white matter. Significa nt progression of degenerative disease since 2017. Mild bilateral cerebellar atrophy. Small bilateral lacunar infarcts in the basal ganglia. Ventricles: Normal size with no hydrocephalus. Paranasal sinuses: Mucoperiosteal thickening in the sphenoid sinus. Mastoid air cells: Well pneumatized. Calvarium and scalp: Skull is intact with no soft tissue edema or swelling. CT/CT head wo con* [id number] IMPRESSION: 1. No acute intracranial hemorrhage or edema. 2. Advanced small vessel ischemic changes with small bilateral lacunar infarct s. Significant progression of microvascular disease since 2017. 3. Mild atrophy.
[2022-07-22 14:35] LABS: Free T4 Free Thyroxine 1.39 ng/dL (0.82-1.77); T3 Free 3.1 PG/ML (2.0-4.4)
--- NOTE | 2022-07-22 14:37 | PC.NURSE ---
Walked with patient 760 feet. Vitals stable no complaints of chest pain or shortness of breath.
[2022-07-22] MEDS: cyanocobalamin 1,000 mcg Tablet 500 MCG PO (14:46)
[2022-07-22] MEDS: amlodipine 5 mg Tablet PO (14:46)
[2022-07-22] MEDS: dilTIAZem 30 mg Tablet PO ×2 (18:40→20:33)
[2022-07-22] MEDS: dilTIAZem 5 mg/mL SDV 5 mL 10 MG IVP (18:40)
[2022-07-22] MEDS: dilTIAZem 100 MG in sodium chloride 0.9% (add-van) 100 ML 10 MG IV (18:41)
[2022-07-22] MEDS: atorvastatin 40 mg Tablet 80 MG PO (20:32)
[2022-07-22] MEDS: metoprolol tartrate 50 mg Tablet PO (20:33)
[2022-07-23] VITALS (72 sets, daily range): BP systolic 53–173; BP diastolic 38–139; PULSE 74–169; RESP 7–31; O2SAT 83–97
[2022-07-23] MEDS: dilTIAZem 30 mg Tablet PO ×4 (00:33→18:08)
[2022-07-23] MEDS: zolpidem 5 mg Tablet PO ×2 (01:32→21:18)
[2022-07-23] MEDS: enoxaparin 100 mg/mL Syringe 90 MG SUBCUT ×2 (01:32→14:43)
[2022-07-23] MEDS: pantoprazole 40 mg SDV IVP (04:14)
[2022-07-23 05:30] LABS: Basophils % 0.5 %; Eosinophils # 0.1 10^3/uL (0.0-0.8); Eosinophils % 1.1 %; Hemoglobin 14.3 g/dL (11.7-16.6); Lymphocytes # 1.4 10^3/uL (0.8-4.8); Lymphocytes % 19.1 %; Mean Corpuscular HGB Conc 32.5 g/dL (30.0-36.0); Mean Corpuscular Hemoglobin 29.9 pg (28.0-34.0); Mean Corpuscular Volume 92.1 fl (80-94); Mean Platelet Volume 11.2 fL (7.4-10.4); Monocytes # 0.6 10^3/uL (0.2-0.9); Monocytes % 8.3 %; Neutrophils # 5.28 10^3/uL (1.8-7.7); Neutrophils % 70.7 %; Nucleated Red Blood Cells % 0 %; Platelet Count 173 10^3/cmm (130-400); Red Blood Count 4.78 10^6/uL (4.1-5.3); Red Cell Distribution Width 14.5 % (12.1-15.1); White Blood Count 7.5 10^3/uL (4.0-10.0)
[2022-07-23 05:42] LABS: Estmated Average Glucose 108; Hemoglobin A1C 5.4 % (4.0-6.0)
[2022-07-23 05:50] LABS: Alanine Aminotransferase 17 U/L (0-41); Albumin Level 3.7 g/dL (3.5-5.2); Alkaline Phosphatase 68 U/L (40-130); Anion Gap 13.2 (5-19); Aspartate Amino Transferase 20 U/L (0-40); Blood Urea Nitrogen 12 mg/dL (8-23); Calcium 8.8 mg/dL (8.5-10.5); Carbon Dioxide 21 mmol/L (22-29); Chloride 107 mmol/L (98-107); Chol HDL Ratio 3.44 mg/dL (1.0-5.00); Cholesterol 124 mg/dL (0-200); Globulin 2.9 g/dL (1.3-4.6); Glucose 88 mg/dL (65-115); HDL Cholesterol 36 mg/dL (60-100); LDL Cholesterol Calculated 71 mg/dL (50-129); Osmolality Calculated 283 mOsm/kg (285-295); Potassium 4.2 mmol/L (3.5-5.1); Sodium 137 mmol/L (136-145); Total Bilirubin 0.5 mg/dL (0.15-1.2); Total Protein 6.6 g/dL (6.6-8.7); Triglycerides 86 mg/dL (0-150); VLDL Cholestrol Calculation 17 mg/dL (0-30)
--- NOTE | 2022-07-23 06:00 | NMCV_ITS ---
NM treasure perf SPECT r/s* [id number] Vasquez Marsh Age: 81 Gender: M : 1940 Exam Date: 07/23/2022 06:00 Ordering Phys: Dez Davidson MD Technologist: BLAIR Leiva Exam Location: [facility] Indications: CHEST PAIN STRESS TEST [facility] IMAGE PROTOCOL Rest/Stress 1 Lexiscan Day Radiopharmaceutical Dose (mCi) Administration Site Administered by Rest: Tc-99m 10.9 IV Donovan Rahman, INDUSTRIAL AUTOMATION SPECIALIST Sestamibi Stress:Tc-99m 32.9 IV Donovan Rahman, INDUSTRIAL AUTOMATION SPECIALIST Sestamibi Rest: 23-Jul-2022 60 Discovery 630 Stress: 23-Jul-2022 30 Discovery 630 0.4mg Lexiscan. Supine position only as patient was unable to lay prone. SPECT RESULTS Technical Quality: Excellent Raw Data Analysis: Normal Image Corrections: No attenuation or motion correction applied Summed Stress Score: 19 Summed Rest Score: 6 Summed Difference Score: 13 PERFUSION FINDINGS There is a large in size reversible perfusion defect noted in the inferior wall. This is consistent with large sized area of ischemia in the RCA territory. There is a large sized area of mostly reversible perfusion defect noted in the inferolateral wall. This is consistent with prior infarct with large area of heaven-infarct ischemia in the left circumflex artery territory. FUNCTIONAL RESULTS (calculated via Gated SPECT) Stress Image LV EF (%): 38 Stress EDV (mL):94 TID: 0.97 Stress ESV (mL):58 FUNCTIONAL FINDINGS: LV systolic function is moderately reduced IMPRESSIONS 1. Abnormal myocardial perfusion imaging with large area of ischemia seen in the RCA territory. 2. Medium sized area of prior infarct with large area of heaven-infarct ischemia is seen in the left circumflex artery territory. 3. LV systolic function is moderately reduced with EF of 38% Arturo Solares MD (Electronically Signed) Final Date: 23 July 2022 09:50 S
[2022-07-23] MEDS: regadenoson 0.4 Mg/5 ml Syringe IVP (07:53)
[2022-07-23] MEDS: cyanocobalamin 1,000 mcg Tablet 500 MCG PO (09:03)
[2022-07-23] MEDS: metoprolol tartrate 50 mg Tablet PO (09:03)
[2022-07-23] MEDS: aspirin 81 mg EC Tablet PO (09:03)
[2022-07-23] MEDS: amlodipine 5 mg Tablet PO (09:04)
--- NOTE | 2022-07-23 09:48 | P.CONIM_ITS ---
Providers/Reason For Consult Consulting Physician/Specialty*: Arturo Solares MD/ Cardiology Reason for Consult*: NSTEMI/Abnormal stress test Requesting Physician: Dr Davidson Attending Physician: Dez Davidson MD Primary Care Provider: [place] Plasencia History of Present Illness History of Present Illness Vasquez Marsh is a 81 year old male with past medical history of hyperlipidemia, ascending and descending aortic aneurysm who presented to hospital with substernal chest pain that was radiating to the jaw. He was found to be in A-fib with RVR. His heart rate improved with Cardizem. His troponin trended up from 148 at baseline to 154 at 6 hours. He underwent stress test today that showed large area of ischemia in RCA territory and significant heaven- infarct ischemia in left circumflex artery territory. He denies prior cardiac history. EKG shows no ischemic changes. Review of Systems Const: Denies: fever(s), chills, body aches or change in appetite ENMT: Denies: throat pain or dental pain Card: Reports: chest pain and palpitations Resp: Denies: dyspnea GI: Denies: abdominal pain, nausea, vomiting or diarrhea Musc: Denies: neck pain or back pain Skin/Breast: Denies: rash Neuro: Denies: headache(s) All/Imm: Denies: urticaria Medications/Allergies Home Medications Medication Instructions Recorded Confirmed Last Taken Type pravastatin 40 mg tablet 40 mg PO QPM 09/27/19 07/22/22 07/21/22 20:00 History (Pravachol) amlodipine 10 mg tablet 10 mg PO DAILY 11/15/19 07/22/22 07/21/22 08:00 History benazepril 40 mg tablet 40 mg PO DAILY 11/15/19 07/22/22 07/21/22 08:00 History Allergies Allergy/AdvReac Type Severity Reaction Status Date / Time aspirin AdvReac Unknown Verified 07/22/22 01:55 Current Medications Generic Name Dose Route Start Last Admin Trade Name Freq PRN Reason Stop Dose Admin Amlodipine Besylate 5 mg 07/22/22 13:50 07/23/22 09:04 Amlodipine 5 Mg Tablet PO 5 mg DAILY RUPESH Administration Aspirin 81 mg 07/23/22 09:00 07/23/22 09:03 Aspirin 81 Mg Ec Tablet PO 81 mg DAILY RUPESH Administration Atorvastatin Calcium 80 mg 07/22/22 21:00 07/22/22 20:32 Atorvastatin 40 Mg Tablet PO 80 mg BEDTIME RUPESH Administration Cyanocobalamin 500 mcg 07/22/22 13:55 07/23/22 09:03 Cyanocobalamin 1,000 Mcg Tablet PO 500 mcg DAILY RUPESH Administration Diltiazem HCl 30 mg 07/22/22 19:00 07/23/22 06:30 Diltiazem 30 Mg Tablet PO 30 mg Q6H RUPESH Administration Enoxaparin Sodium 90 mg 07/22/22 14:00 07/23/22 01:32 Enoxaparin 100 Mg/Ml Syringe 1 mg/kg (90 mg) 90 mg SUBCUT Administration Q12H RUPESH Diltiazem HCl 100 mg/ Sodium 100 mls @ 0 mls/hr 07/22/22 18:30 07/22/22 21:06 Chloride IV 0 mg/hr .Q0M RUPESH 0 mls/hr Titration Protocol Per Protocol Metoprolol Tartrate 50 mg 07/22/22 21:00 07/23/22 09:03 Metoprolol Tartrate 50 Mg Tablet PO 50 mg BID@0900,2100 RUPESH Administration Nitroglycerin 0.4 mg 07/22/22 01:34 07/22/22 01:44 Nitroglycerin 0.4 Mg Sublingual Tablet SUBLINGUAL 0.4 mg Q5M PRN Administration CHEST PAIN Pantoprazole Sodium 40 mg 07/22/22 04:00 07/23/22 04:14 Pantoprazole 40 Mg Sdv IVP 40 mg Q24H RUPESH Administration Zolpidem Tartrate 5 mg 07/23/22 01:20 07/23/22 01:32 Zolpidem 5 Mg Tablet PO 5 mg ONCE PRN Administration INSOMNIA PFSH Acute PFSH: Medical History (Updated 07/23/22 @ 10:41 by Arturo Solares M.D) Coronary atherosclerosis Diverticulosis Dyslipidemia Hypertension Surgical History No pertinent past surgical history Family History Other CAD (coronary artery disease) Cancer Hypertension Social History Smoking and tobacco status: former smoker Alcohol intake: current Alcohol intake frequency: holidays/special occasions only Alcohol type: beer Substance/Drug Use: never Household members: spouse Housing: House Current occupation: Retired [employer] Vitals/I&O/Wt Last Vital Signs Temp 98.9 F 07/22/22 20:00 Pulse 120 H 07/23/22 08:09 Resp 15 07/23/22 08:00 BP 167/68 07/23/22 08:09 Pulse Ox 93 07/23/22 08:00 O2 Del Method Room Air 07/23/22 08:00 07/22/22 07/23/22 07/23/22 22:59 06:59 14:59 Intake Total 721.500 / 1500.833 530 / 2030.833 Output Total 500 / 575 650 / 1225 200 / 200 Balance 221.500 / 925.833 -120 / 805.833 -200 / -200 Weight last 48 hrs Weight 212 lb Weight 212 lb Weight 205 lb Physical Exam Narrative: GENERAL: Patient is alert, awake and oriented x3. [] NECK: No jugular vein distension. [] HEENT: No cyanosis. No icterus. No pallor. [] HEART: Irregularly irregular LUNGS: Clear to auscultate bilaterally. [] CENTRAL NERVOUS SYSTEM: Grossly nonfocal. [] EXTREMITIES: Lower extremities with no edema Data 07/23/22 05:01 07/23/22 05:01 A&P Assessment and plan (1) NSTEMI (non-ST elevated myocardial infarction): (2) Hyperlipidemia: (3) Atrial fibrillation with RVR: (4) Chest pain: (5) Abnormal stress test: Plan Patient has presented with typical chest pain however he was in A-fib with RVR at the time. Heart rate is better controlled now. His troponin level was elevated. He underwent stress test today that showed large area of ischemia in RCA territory and large area of heaven-infarct ischemia in left circumflex artery territory. We will proceed with coronary angiogram with possible percutaneous coronary intervention. Patient is NPO. We will proceed with the procedure today. I discussed with patient and his the procedure. They understand the risk and benefit and want to proceed with it. NPO Allergy listed to aspirin however he has been on it at this time. We will load with plavix. If he needs PCI, he will need oral anticoagulation and plavix at time of discharge ECHO done Thank you for involving us with care of this patient. We will continue to follow. please call with questions Consult Attestations Medical Necessity Statement: Care expected to cross 2 midnights. Coding Level of Care Code Acute Code for Chg Fwd Diagnoses NSTEMI (non-ST elevated myocardial infarction) I21.4 Hyperlipidemia E78.5 Atrial fibrillation with RVR I48.91 Chest pain R07.9 Abnormal stress test R94.39
--- NOTE | 2022-07-23 09:48 | PC.CHAP ---
Pastoral Care Encounter/Spiritual Assessment Type of Contact [] Declined bar examiner visit [] Patient/Family/Request visit [] Outpatient visit [] Follow-up visit [] Physician referral [] Code/Alert [x] Routine visit [] Staff referral [] Actively dying [] Patient sleeping [] Family support [] [] Out of room [] Palliative care [] [] Receiving care in room [] Pre-surgical visit [] Trauma [] Long length of stay [] ICU visit [] Other: Relational/Emotional Strength [x] Patient feels connected with others/family/visitors/staff [] Distress [] Loneliness/isolation [] Abandonment Spirituality of Patient [x] Person of Jes [x] Attends Buddhist of their Jes [x] Believes in Prayer [x] Reads Bible or Judaism materials [] There are Spiritual issues to be addressed Lapeler Interventions [x] Prayer x[] Active listening [] Non-anxious presence [x] Spiritual/emotional support [] Crisis/trauma care [] Spiritual counseling [] Bereavement support [] Provided bereavement packet [] Provided Bible/devotional materials [] Provided toy/stuffed animal, coloring book to patient or family member [] Provided Communion [] Anointing/[place] [] Salvation [x] Completed spiritual assessment [] Other: Impact on Illness or Injury [] Angry [] Fearful [] Anxious [] Often cries [] Exhaustion [] Unable to work [] Unable to attend adventism [] Unable to walk/stand [] Unable to read [] Unable to drive [] Unable to eat/drink [] Unable to sleep [] Unable to be with family [] Patient intubated [] Other: Summary Time spent with patient 5 min
--- NOTE | 2022-07-23 10:22 | XACV_ITS ---
Exam Room: [facility] Ht: 183 cm Wt: 96 kg BSA: 2.23 m2 Gender: Male : 1940 Any Known Allergies: Asprin Exam Priority: Routine Procedure(s): Procedure Description: Diagnostic procedure Procedure Description: Coronary Angiography Diagnostic Cath Status: Urgent Diagnostic Findings * INDICATION: Chest pain/abnormal stress test/nstemi. * Circumflex has mild to moderate diffuse luminal irregularities. * Proximal Right Coronary Artery: chronic total occlusion, GABRIEL: 0 flow. Distal vessel receives collaterals from left system. * Left Main: minimal 30% stenosis, GABRIEL: 3 flow. * Proximal Left Anterior Descending: mild 40% stenosis, GABRIEL: 3 flow. * Coronary angiography shows right dominance. Conclusions 1. Chronic total occlusion of RCA. 2. Moderate disease of left main, LAD and left circumflex artery.. Recommendations * Aggressive risk factor modification. Chest pain and troponin elevation likely secondary to demand ischemia in setting of atrial fibrillation with RVR. * Outpatient cardiology follow-up in 2 weeks. Interventional RX Recommendation: medical therapy and/or counseling Diagnostic RX Recommendation: medical therapy and/or counseling Pressures Phase:Rest AO : 120 / 95 ( 107 ) @ 12:12:00 PM Clinical Evaluation EBL: 5mL-10mL Procedural Details Procedure Consent Obtained. Pre-Procedure Time Out. Identified patient by full name and date of as verbalized by the patient/guarantor. Does the consent match the physician's order: Yes. Accurate & Complete Informed Consent: Yes. Inpatient/Outpatient History & Physical on Chart: Yes. If H&P is completed, is and addenduem needed: No; If yes, is the addendum complete: N/A. Visualize and Verify Site with Patient/Guarantor: N/A. Relevant Radiology Images available: Yes. The risks, benefits, and alternatives of sedation and/or procedure were discussed by physician. The patient agrees to continue. Procedure started. [facility] Clinical Fraility Score: 5: Mildly Frail. General Manager In Training Indications: ACS > 24 hours. Chest Pain Symptom Assessment: Typical Angina Symptoms. Correct patient, site and procedure confirmed by cath team. Current diagnosis: NSTEMI, Abnormal stress test. PERRLA. Strong, equal hand mountain or glacier guide bilaterally. Lungs clear x 5 lobes. IV Site on Arrival: 20 gauge in the left anticubital. IV Fluids: 0.9% NaCl at KVO. 700 mL infused prior to excavation laborer. Pre Procedural Pulses: bilateral dorsalis pedis was 1+. Pre Procedural Pulses: bilateral posterior tibial was 1+. Pre Procedural Pulses: bilateral radial was 2+. Oxygen started at 2liters/min via nasal canula. right radial was prepped with chloroprep then draped in the usual sterile fashion. right groin was prepped with chloroprep then draped in the usual sterile fashion. Physician notified. Baseline sample Acquired. HR: 95 BPM. Physician arrived. Physician scrubbed in. Immediate Pre-Procedure Time Out. Correct Patient: Yes; Correct Procedure: Yes; Correct Site: Yes; Correct Patient Position: Yes; Correct Supplies: Yes; Dried Flammable Prep: Yes; Blood Products Available: Yes;. Lidocaine 1% infiltrated to the right radial. Arterial access obtained. A 5 jamaican TIG catheter in over wire. Unable to advance catheter due to tortuous artery. Catheter and wire out. A TR Band was successful obtaining hemostatsis at the Right Radial artery insertion site. Lidocaine 1% infiltrated to the right groin. Arterial access obtained with micropuncture set. A 5 jamaican JL4 catheter in over exchange wire. Exchange wire out. Catheter removed over the exchange wire. A 5 jamaican JR4 catheter in over wire. Multiple views taken of right coronary artery. Multiple views taken of left coronary artery. Catheter removed over the exchange wire. Physician review of cine films. A Right femoral angiogram was performed to determine safe placement of closure device. Post Procedure: Pulses reassessed and unchanged. PERRLA. Strong, equal hand mountain or glacier guide bilaterally. No VTE prophylaxis required. Medication's Wasted: Nitro = 49.8 mg. Medication's Wasted: Heparin = 1000 units. Medication's Wasted: Other = Fentanyl 75mcg, Versed 1mg. Total IV fluids: 92 mL. Post-op diagnosis: DELIVERY RECRUITER of RCA, Moderate Stenosis of Circumflex. Complications: None. Estimated blood loss: 5mL-10mL. Responsiveness - Normal response to verbal stimuli; alert and oriented, PERRLA. Airway - Unaffected, no intervention required; spontaneous ventilation. Circulation: W/N/L, pulses unchanged. Nausea/Vomiting: No. A Manual Compression was successful obtaining hemostatsis at the Right Femoral artery insertion site. Procedure completed. Sheath(s) removed and manual pressure held until hemostasis was achieved. Sterile 4x4 and Op-site applied to the puncture site. No oozing or hematoma noted. Post sheath removal instructions were given and the patient verbalized understanding. Patient transferred by bed to 1st floor. Vital chart was stopped. Access Site Site: Right Radial artery Sheath Size: 6 Fr Hemostasis Method: TR Band Hemostasis Success: Successful Site: Right Femoral artery Sheath Size: 6 Fr Hemostasis Method: Manual Compression Hemostasis Success: Successful Procedure Medications Start: 10:53 AM Stop: 10:53 AM Medication: Versed Amount: 1 mg Route: I.V. Start: 10:53 AM Stop: 10:53 AM Medication: Fentanyl Amount: 25 mcg Route: I.V. Start: 10:59 AM Stop: 10:59 AM Medication: Versed Amount: 1 mg Route: I.V. Start: 11:01 AM Stop: 11:01 AM Medication: Nitrogylcerin Amount: 200 mcg Route: I.A. Start: 11:16 AM Stop: 11:16 AM Medication: Versed Amount: 1 mg Route: I.V. I, the attending physician, have reviewed and verified all procedure medications. Yes, all medications given per verbal order History/Risk Factors Hypertension: Yes Dyslipidemia: Yes Peripheral Arterial Disease (PAD): No Myocardial Infarction (VT): No Obesity: No Renal Disease: No Tobacco Use: Former Prior Interventions PCI: No CABG: No Valve Surgery: No Report Signatures Finalized by Arturo Solares MD on 07/31/2022 12:49 PM
[2022-07-23] MEDS: clopidogrel 300 mg Tablet 600 MG PO (10:34)
--- NOTE | 2022-07-23 10:56 | W.PM.OPSUD ---
Surgery/Procedure H&P Update DATE OF PROCEDURE: July 23, 2022 DATE H&P PERFORMED: 07/23/22 H&P UPDATE INFORMATION: I have reviewed H&P completed within last 30 days, I have examined patient prior to procedure and No changes to prior documentation PREOP DIAGNOSIS: NSTEMI/Abnormal stress test PRIMARY INDICATION FOR PROCEDURE: NSTEMI/Abnormal stress test PLANNED PROCEDURE: Left heart cath with possible percutaneous coronary intervention PATIENT REASSESSED PRIOR TO SEDATION, WITH NO CHANGE NOTED: Yes PHYSICAL EXAM: alert, oriented x 3, clear to auscultation bilaterally and regular rate & rhythm AIRWAY EVAL/ANESTHESIA PLAN: normal airway, ASA IV, Local Anesthesia, Risks, benefits & alternatives of sedation and/or procedure discussed and Patient agrees to continue as planned ADDITIONAL INFORMATION: Moderate sedation
[2022-07-23] MEDS: metoprolol tartrate 25 mg Tablet PO (12:34)
--- NOTE | 2022-07-23 15:06 | PM.PN ---
Subjective Subjective: No acute events overnight. Yesterday evening Cardizem drip had to be started again because of A-fib with RVR. Patient converted back into controlled rate at around 10 PM at which time Cardizem drip was stopped. No further chest pain. Has remained hemodynamically stable and on room air. Review of vitals blood pressures remain slightly elevated. Underwent Lexiscan stress test today which was reported normal after which she was seen by glove cleaner and was taken for cardiac angiogram. He was found to have a SMELTING ENGINEER in RCA with multiple collaterals had plan is to treat him medically.(Official cath report not available currently) Vitals/I&O/Wt Last Vital Signs Temp 98.9 F 07/22/22 20:00 Pulse 100 07/23/22 12:00 Resp 23 H 07/23/22 12:00 BP 114/75 07/23/22 12:00 Pulse Ox 90 07/23/22 12:00 O2 Del Method Room Air 07/23/22 12:00 07/23/22 07/23/22 07/23/22 06:59 14:59 22:59 Intake Total 530 / 2030.833 120 / 120 Output Total 650 / 1225 475 / 475 Balance -120 / 805.833 -355 / -355 Weight last 48 hrs Weight 96.162 kg Weight 96.162 kg Weight 92.986 kg Physical Exam Narrative: General: Alert oriented x3, patient seen laying in bed appearing comfortable at this time. On room air. No acute distress HEENT: Normocephalic, atraumatic, EOMI, Cardio: Irregularly irregular, no tachycardia, soft ejection systolic murmur Respiratory: Clear to auscultation bilaterally GI: Abdomen soft, nontender, bowel sounds + Behavior: Appropriate and cooperative Extremities: No edema noted. Data 07/23/22 05:01 07/23/22 05:01 A&P Assessment and plan (1) Atrial fibrillation with RVR: Continue with Cardizem 30 mg every 6 hourly. Increase metoprolol to 100 mg twice daily. Monitor blood pressures. Target heart rate less than 100 bpm. Juan Manuel vas score: 5, 2 for age, 1 for CHF, 1 for hypertension, 1 for CAD. Discussed about anticoagulation with the patient regarding merits versus demerits. Patient is agreeable. For now continue with Lovenox 1 mg/kg body weight cupola hourly. (2) NSTEMI (non-ST elevated myocardial infarction): No further chest pain. Appreciate A1c, lipid panel. Continue with aspirin 81 mg daily, statin 40 mg daily. Continue with beta-parvez as above. Appreciate echocardiogram. Patient underwent Lexiscan stress test which was reported abnormal. Cardiology consulted. Patient underwent cardiac angiogram in which she was found to have SMELTING ENGINEER of RCA with multiple collaterals. Plan to treat medically. (3) Abnormal stress test: (4) Descending aortic aneurysm: (5) Hyperlipidemia: (6) CAD (coronary artery disease): (7) Chest pain: Plan Hypertension: Goal blood pressure less than 140/90 mmHg. Cardizem and metoprolol as above. Will uptitrate medications or add Imdur as per goal blood pressures within next 24 hours. Aortic aneurysm: Most likely patient will need serial follow-up as an outpatient. Blood pressure controlled. Full code. Restart cardiac diet. Protonix for PUD prophylaxis. Full dose Lovenox will suffice as DVT prophylaxis. Attestations Medical Necessity Statement*: Requires further hospitalization for management of positive cardiac stress test in setting of non-ST elevation [place] in a patient who was admitted with A-fib with RVR while antihypertensives were adjusted Diagnoses Atrial fibrillation with RVR I48.91 NSTEMI (non-ST elevated myocardial infarction) I21.4 Abnormal stress test R94.39 Descending aortic aneurysm I71.9 Hyperlipidemia E78.5 CAD (coronary artery disease) I25.10 Chest pain R07.9
[2022-07-23] MEDS: sodium chloride 0.9% 1,000 ML 50 ML IV (16:00)
[2022-07-23] MEDS: hyDRALAzine 25 mg Tablet PO ×2 (18:53→21:16)
[2022-07-23] MEDS: amiodarone 50 mg/mL SDV 3 mL 150 MG IVP (19:17)
[2022-07-23] MEDS: metoprolol tartrate 50 mg Tablet 75 MG PO (21:16)
[2022-07-23] MEDS: atorvastatin 40 mg Tablet PO (21:16)
[2022-07-24] VITALS (8 sets, daily range): BP systolic 110–168; BP diastolic 84–99; PULSE 73–105; RESP 13–24; O2SAT 90–95
--- NOTE | 2022-07-24 02:00 | PC.NURSE ---
Patient walked out into the hallway looking for his . Nurse approached patient and patient was unsure of where he was. Patient had pulled out his IV that he was receiving IV amiodarone through. Nurse assisted patient back into the room, attempting to reorient him and explaining that he is being treated for his afib which is why he is still in the hospital. The patient appears somewhat annoyed and irritated by his roommates BIPAP and the noises and beeping. The nurse silenced the monitors in attempts to keep room quiet as possible. The patients bed alarm was turned on to alert nurse if the patient gets OOB again.
[2022-07-24] MEDS: enoxaparin 100 mg/mL Syringe 90 MG SUBCUT ×2 (02:25→14:44)
[2022-07-24] MEDS: pantoprazole 40 mg SDV IVP (02:25)
[2022-07-24 06:10] LABS: Basophils % 0.2 %; Eosinophils # 0.1 10^3/uL (0.0-0.8); Eosinophils % 0.6 %; Hematocrit 44.1 % (42.0-52.0); Hemoglobin 14.4 g/dL (11.7-16.6); Lymphocytes # 1.2 10^3/uL (0.8-4.8); Lymphocytes % 13.1 %; Mean Corpuscular HGB Conc 32.7 g/dL (30.0-36.0); Mean Corpuscular Hemoglobin 30.2 pg (28.0-34.0); Mean Corpuscular Volume 92.5 fl (80-94); Mean Platelet Volume 9.9 fL (7.4-10.4); Monocytes # 0.8 10^3/uL (0.2-0.9); Monocytes % 8.2 %; Neutrophils # 7.26 10^3/uL (1.8-7.7); Neutrophils % 77.6 %; Nucleated Red Blood Cells % 0 %; Platelet Count 235 10^3/cmm (130-400); Red Blood Count 4.77 10^6/uL (4.1-5.3); Red Cell Distribution Width 14.3 % (12.1-15.1); White Blood Count 9.4 10^3/uL (4.0-10.0)
[2022-07-24 06:32] LABS: Alanine Aminotransferase 14 U/L (0-41); Albumin Level 3.8 g/dL (3.5-5.2); Alkaline Phosphatase 73 U/L (40-130); Aspartate Amino Transferase 18 U/L (0-40); Blood Urea Nitrogen 10 mg/dL (8-23); Calcium 8.9 mg/dL (8.5-10.5); Carbon Dioxide 18 mmol/L (22-29); Chloride 103 mmol/L (98-107); Globulin 3.1 g/dL (1.3-4.6); Glucose 92 mg/dL (65-115); Osmolality Calculated 279 mOsm/kg (285-295); Sodium 135 mmol/L (136-145); Total Protein 6.9 g/dL (6.6-8.7)
--- NOTE | 2022-07-24 07:34 | P.PN_ITS ---
Subjective Subjective: Patient is doing well. No chest pain. Vitals/I&O/Wt Last Vital Signs Temp 98.9 F 07/22/22 20:00 Pulse 98 07/24/22 05:44 Resp 16 07/24/22 00:00 BP 110/87 07/24/22 04:05 Pulse Ox 95 07/24/22 00:30 O2 Del Method Room Air 07/24/22 00:00 07/23/22 07/24/22 07/24/22 22:59 06:59 14:59 Intake Total 240 / 360 206.604 / 566.604 240 / 240 Output Total 1350 / 1825 675 / 2500 Balance -1110 / -1465 -468.396 / -1933.396 240 / 240 Weight last 48 hrs Weight 212 lb 9.6 oz Physical Exam Narrative: GENERAL: Patient is alert, awake and oriented x3. [] NECK: No jugular vein distension. [] HEENT: No cyanosis. No icterus. No pallor. [] HEART: Irregularly irregular LUNGS: Clear to auscultate bilaterally. [] CENTRAL NERVOUS SYSTEM: Grossly nonfocal. [] EXTREMITIES: Lower extremities with no edema Data 07/24/22 05:44 07/24/22 05:44 A&P Assessment and plan (1) NSTEMI (non-ST elevated myocardial infarction): (2) Hyperlipidemia: (3) Atrial fibrillation with RVR: (4) Chest pain: (5) Abnormal stress test: Plan Patient is overall stable. Coronary angiogram showed STONE ROUGHER of RCA. Medical management. Thank you for involving us with care of this patient. We will continue to follow. please call with questions Attestations Medical Necessity Statement*: Care expected to cross 2 midnights. Coding Level of Care Code Acute Code for [facility] Diagnoses NSTEMI (non-ST elevated myocardial infarction) I21.4 Hyperlipidemia E78.5 Atrial fibrillation with RVR I48.91 Chest pain R07.9 Abnormal stress test R94.39
--- NOTE | 2022-07-24 08:04 | PM.DCS ---
Discharge Providers Date of Admission: 07/22/22 02:25 Date of Discharge: July 24, 2022 Attending Provider at Admission: Davina Peterson MD Attending Provider at Discharge: Dez Davidson MD Consults: Cardiology: Dr. Solares Primary Care Provider: [place] Plasencia Diagnoses at Discharge Discharge Diagnosis (1) Atrial fibrillation with RVR: Status: Acute (2) NSTEMI (non-ST elevated myocardial infarction): Status: Acute (3) Abnormal stress test: Status: Acute (4) Descending aortic aneurysm: Status: Acute (5) Hyperlipidemia: Status: Acute (6) CAD (coronary artery disease): Status: Acute (7) Chest pain: Status: Acute Reason for Visit Reason for Visit: Jaw pain Brief History: As per HPI: Vasquez Marsh is a 81 year old male With past medical history of diverticulosis, dyslipidemia, hypertension, denies a history of cardiac disease, former smoker presented to the hospital today with complaint of right-sided jaw pain.? He states his gums on the right side were hurting.? He is edentulous and does not have any dental infection at this time.? He says he even took out his teeth but that did not take away the pain.? He also had chest pain on his right side that was pretty constant but Radiating to his jaw area.? He did tell the ER that he was having palpitations however he told me that he did not feel like his heart was racing at all.? He reports cardiac disease history in his mother and brother.? Does not know many more details other than that.? He is a former smoker.? He says nothing really made the pain better or worse.? Typically he says he is pretty active and does not get shortness of breath on exertion.? The chest pain episode today was not associated with diaphoresis, nausea vomiting or any other symptoms.? At this time of encounter he is chest pain-free.? Denies recent illness.? Considers himself pretty healthy. On arrival to ER blood pressure 126/83, pulse 104, temperature 97.7, saturating 94% on room air.? EKG was done which showed A-fib with RVR with a heart rate of 153.? He did have some T wave inversions in the lateral leads.? Initial troponin 143.? 2-hour 6-hour troponin pending at this time.? 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 Patient was given 15 of Cardizem IV push x1 and started on a Cardizem drip.? Currently he is on 15 mg/h with heart rate still uncontrolled in the 1 teens.? He was also given therapeutic Lovenox dose x1, 1 L normal saline bolus. Hospital Course Hospital Course Patient was admitted to the hospital further evaluation and management. On admission he was found to be in atrial fibrillation with rapid ventricular response. His heart rate for several downward IV Cardizem which were later transitioned to oral Cardizem. After the heart rate settled down the jaw pain also settled down. During hospitalization patient had multiple episodes of rapid ventricular response for which multiple medications were changed but heart rate settled down after combination of metoprolol and amiodarone. He was started on full dose anticoagulation both for non-STEMI and for stroke prevention given new atrial fibrillation. Given concerns for non-ST elevation AR he underwent cardiac stress test on 07/23 which was reported abnormal with large area of ischemia in RCA territory. 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 Decision was taken to treat him medically. His hospitalization was complicated by him having uncontrolled hypertension for which multiple antihypertensives were adjusted. He has been discharged in hemodynamically stable condition on hydralazine 25 mg twice daily, metoprolol 100 mg twice daily along with amiodarone 400 mg twice daily for next 1 week followed by 200 mg twice daily for 1 week after which she is to take 200 mg daily. He is advised to check his blood pressures daily at home and maintain a blood pressure diary and follow-up with his primary care provider and with nurse practitioner from cardiology within next 1 week for further adjustment of medications as needed. He is to take Eliquis 5 mg twice daily for anticoagulation. Discharge plan discussed in detail with the patient and he verbalized understanding. All the questions were answered. Physical Exam Narrative: General: Alert oriented x3, patient seen laying in bed appearing comfortable at this time. On room air. No acute distress HEENT: Normocephalic, atraumatic, EOMI, Cardio: Irregularly irregular, no tachycardia, soft ejection systolic murmur Respiratory: Clear to auscultation bilaterally GI: Abdomen soft, nontender, bowel sounds + Behavior: Appropriate and cooperative Extremities: No edema noted. Discharge Data Studies Completed and Pending Completed Studies During Hospitalization Category Date Time Status CT head wo con* [id number] Routine Cat Scan 07/22/22 13:51 Completed Sestamibi Stress Test Request Routine Exams 07/22/22 12:35 Draft XR chest 1V portable [id number] Stat Exams 07/22/22 01:34 Completed NM treasure perf SPECT r/s* [id number] Routine Nuc Med 07/23/22 06:00 Completed CV. echo complete* [id number] Routine Ultrasound 07/22/22 03:53 Completed Pending at discharge Category Date Time Status MAINTENANCE ANALYST request for service Routine Exams 07/23/22 10:22 Taken Radiology Impressions Chest X-Ray 07/22/22 01:34 IMPRESSION: No acute findings. Head CT 07/22/22 13:51 IMPRESSION: 1. No acute intracranial hemorrhage or edema. 2. Advanced small vessel ischemic changes with small bilateral lacunar infarcts. Significant progression of microvascular disease since 2017. 3. Mild atrophy. Echocardiogram: CONCLUSIONS ?LV systolic function is normal with EF of 50-55% ?Diastolic function is indeterminate because of atrial ?fibrillation ?Mild mitral regurgitation. ?Mild aortic regurgitation ?Trace tricuspid regurgitation ?Ascending aorta is dilated and measures 3.9 cm in diameter. ?Arturo Solares MD ?(Electronically Signed) ?Final Date:? ? ? 23 July 2022 ? 10:55 Lexiscan: PERFUSION FINDINGS ?There is a large in size reversible perfusion defect noted in the inferior ?wall. This is consistent with large sized area of ischemia in the RCA ?territory. There is a large sized area of mostly reversible perfusion defect ?noted in the inferolateral wall. This is consistent with prior infarct with ?large area of heaven-infarct ischemia in the left circumflex artery territory. ?FUNCTIONAL RESULTS ? ? (calculated via Gated SPECT) ? Stress Image LV EF (%):? ? 38 ? Stress EDV (mL):94 ? TID:? 0.97 ? Stress ESV (mL):58 ?FUNCTIONAL FINDINGS: ?LV systolic function is moderately reduced ?IMPRESSIONS ?1. Abnormal myocardial perfusion imaging with large area of ischemia seen in ?the RCA territory. ?2. Medium sized area of prior infarct with large area of heaven-infarct ischemia ?is seen in the left circumflex artery territory. ?3. LV systolic function is moderately reduced with EF of 38% ?Arturo Solares MD ?(Electronically Signed) ?Final Date:? ? ? 23 July 2022 Laboratory Results WBC 9.4 10^3/uL (4.0-10.0) 07/24/22 05:44 RBC 4.77 10^6/uL (4.1-5.3) 07/24/22 05:44 Hgb 14.4 g/dL (11.7-16.6) 07/24/22 05:44 Hct 44.1 % (42.0-52.0) 07/24/22 05:44 MCV 92.5 fl (80-94) 07/24/22 05:44 MCH 30.2 pg (28.0-34.0) 07/24/22 05:44 MCHC 32.7 g/dL (30.0-36.0) 07/24/22 05:44 RDW 14.3 % (12.1-15.1) 07/24/22 05:44 Plt Count 235 10^3/cmm (130-400) D 07/24/22 05:44 MPV 9.9 fL (7.4-10.4) 07/24/22 05:44 Neut % (Auto) 77.6 % 07/24/22 05:44 Lymph % (Auto) 13.1 % 07/24/22 05:44 [place] % (Auto) 8.2 % 07/24/22 05:44 Eos % (Auto) 0.6 % 07/24/22 05:44 Baso % (Auto) 0.2 % 07/24/22 05:44 Neut # (Auto) 7.26 10^3/uL (1.8-7.7) 07/24/22 05:44 Lymph # (Auto) 1.2 10^3/uL (0.8-4.8) 07/24/22 05:44 [place] # (Auto) 0.8 10^3/uL (0.2-0.9) 07/24/22 05:44 Eos # (Auto) 0.1 10^3/uL (0.0-0.8) 07/24/22 05:44 Baso # (Auto) 0.0 10^3/uL (0.0-0.1) 07/24/22 05:44 Nucleated RBC % (auto) 0 % 07/24/22 05:44 Nucleated RBCs # 0.0 /100WBC 07/24/22 05:44 PT 13.70 SECONDS (12.1-14.9) 07/22/22 01:35 INR 1.02 (0.8-1.2) 07/22/22 01:35 D-Dimer 1.16 ug/mIFEU (0-0.59) H 07/22/22 04:02 Sodium 135 mmol/L (136-145) L 07/24/22 05:44 Potassium 4.0 mmol/L (3.5-5.1) 07/24/22 05:44 Chloride 103 mmol/L (98-107) 07/24/22 05:44 Carbon Dioxide 18 mmol/L (22-29) L 07/24/22 05:44 Anion Gap 18.0 (5-19) 07/24/22 05:44 BUN 10 mg/dL (8-23) 07/24/22 05:44 Creatinine 0.7 mg/dL (0.7-1.2) 07/24/22 05:44 GFR Calculation Not Reportable 07/24/22 05:44 Glucose 92 mg/dL (65-115) 07/24/22 05:44 Estimat Average Glucose 108 07/23/22 05:01 Hemoglobin A1c 5.4 % (4.0-6.0) 07/23/22 05:01 Calculated Osmolality 279 mOsm/kg (285-295) L 07/24/22 05:44 Calcium 8.9 mg/dL (8.5-10.5) 07/24/22 05:44 Magnesium 2.0 mg/dL (1.7-2.3) 07/23/22 05:01 Iron 53 ug/dL (59-158) L 07/22/22 04:02 TIBC 286 mcg/dl 07/22/22 04:02 % Saturation 18.5 % (20-50) L 07/22/22 04:02 Unsat Iron Binding 233 ug/dL (112-347) 07/22/22 04:02 Total Bilirubin 1.0 mg/dL (0.15-1.2) 07/24/22 05:44 AST 18 U/L (0-40) 07/24/22 05:44 ALT 14 U/L (0-41) 07/24/22 05:44 Alkaline Phosphatase 73 U/L (40-130) 07/24/22 05:44 Troponin T Baseline 148 ng/L (0-15) H* 07/22/22 01:35 Troponin T 120 Minute 139.3 ng/L (0-15) H 07/22/22 04:02 Delta Troponin T -8.7 ABS# (0-10) L 07/22/22 04:02 Troponin T Hi Sens 6Hr 154.6 ng/L (0-15) H 07/22/22 08:15 Troponin T Hi Sens 6Hr Delta 6.6 ng/L (0-12) 07/22/22 08:15 Total Protein 6.9 g/dL (6.6-8.7) 07/24/22 05:44 Albumin 3.8 g/dL (3.5-5.2) 07/24/22 05:44 Globulin 3.1 g/dL (1.3-4.6) 07/24/22 05:44 Triglycerides 86 mg/dL (0-150) 07/23/22 05:01 Cholesterol 124 mg/dL (0-200) 07/23/22 05:01 LDL Cholesterol, Calc 71 mg/dL (50-129) 07/23/22 05:01 Total VLDL Cholesterol 17 mg/dL (0-30) 07/23/22 05:01 HDL Cholesterol 36 mg/dL (60-100) L 07/23/22 05:01 Cholesterol/HDL Ratio 3.44 mg/dL (1.0-5.00) 07/23/22 05:01 Vitamin B12 305 pg/mL (232-1245) 07/22/22 04:02 Folate 14.0 ng/mL (4.5-32.2) 07/23/22 05:01 TSH 4.53 uIU/mL (0.27-4.20) H 07/22/22 04:02 Free T4 1.39 ng/dL (0.82-1.77) 07/22/22 08:15 Free T3 3.1 PG/ML (2.0-4.4) 07/22/22 08:15 Vitals Last Vital Signs Temp 98.9 F 07/22/22 20:00 Pulse 98 07/24/22 05:44 Resp 16 07/24/22 00:00 BP 110/87 07/24/22 04:05 Pulse Ox 95 07/24/22 00:30 O2 Del Method Room Air 07/24/22 00:00 Discharge Plan Discharge Patient Disposition: Home Condition: Stable Prescriptions: New cyanocobalamin (vitamin B-12) [Vitamin B-12] 1,000 mcg Tablet 500 mcg PO DAILY Qty: 30 0RF metoprolol tartrate 50 mg Tablet 100 mg PO BID@0900,2100 30 Days Qty: 120 0RF aspirin 81 mg Tablet,Delayed Release (Dr/Ec) 81 mg PO DAILY Qty: 30 0RF hydralazine 25 mg Tablet 25 mg PO BID 30 Days Qty: 60 0RF amiodarone [Pacerone] 200 mg Tablet 400 mg PO BID Qty: 60 0RF Rx Instructions: 400 mg BID for 7 days; then 200 mg BID for 7 days then 200 mg daily Eliquis 5 mg tablet 5 mg PO BID Qty: 60 0RF Continued pravastatin [Pravachol] 40 mg tablet 40 mg PO QPM Rx Instructions: pt states he only takes 20mg qpm Discontinued amlodipine 10 mg tablet 10 mg PO DAILY benazepril 40 mg tablet 40 mg PO DAILY Discharge Orders: Discharge Order (Routine); Ordered 07/24/22 Ordered By: Dez Davidson Referrals: [place] Plasencia [Primary Care Provider] - 07/29/22 11:00 am (Please follow-up with [place] Plasencia on July 29 at 11:00A.M. If you have any questions or need to reschedule. Please call ) Claudia Polanco FNP [Nurse Practitioner] - 08/01/22 10:15 am (Please follow-up with Claudia Polanco on August 01 at 10:15A.M. If you have any questions or need to reschedule. Please call ) Discharge Diet: Cardiac Discharge Activity: Resume usual activity and Increase activity as tolerated Patient Instructions: Metoprolol (By mouth) (Lopressor, Toprol XL), Aspirin (By mouth), Amiodarone (By mouth) (Cordarone, Pacerone), Hydralazine (By mouth), Vitamin B-12 (By mouth), Apixaban (By mouth) (Eliquis), A-fib (Atrial Fibrillation) (DC), DASH Eating Plan (DC), Heart Catheterization (DC), Opioid Safety, Post Angiogram Home Care Instructions, Post Heart Attack Stoplight Activity Restrictions/Additional Instructions: Multiple medication changes have been done. Do not take Benzapril or amlodipine anymore. Your blood pressure medication has been changed to metoprolol 100 mg twice daily, hydralazine 25 mg twice daily. Take amiodarone 400 mg twice daily for next 1 week followed by 200 mg twice daily for 1 week after which take 200 mg daily. You will be on blood thinner with Eliquis 5 mg twice daily. Take baby aspirin 81 mg daily. Please check your blood pressures daily at home and maintain a blood pressure diary and follow-up with your primary care provider within next 1 week for further adjustment of antihypertensives if needed. Follow-up with Claudia Polanco/nurse practitioner from [facility] onset appointment. Discharge Attestations Time Spent in Discharge Care*: greater than 30 min Specific Discharge Activities: educating patient, discussing with pcp/other providers, discussing with telephonic nurse case manager/social workers/dc planners, documenting/other paperwork and evaluating patient/reviewing data Quality Metrics Clinical Quality Measures [ No reported AMI, CVA or VTE this stay] Coding Level of Care Code 30932 Total time (in minutes) for Discharge: 60 Diagnoses Atrial fibrillation with RVR I48.91 NSTEMI (non-ST elevated myocardial infarction) I21.4 Abnormal stress test R94.39 Descending aortic aneurysm I71.9 Hyperlipidemia E78.5 CAD (coronary artery disease) I25.10 Chest pain R07.9
[2022-07-24] MEDS: metoprolol tartrate 50 mg Tablet 75 MG PO (08:33)
[2022-07-24] MEDS: ALPRAZolam 0.5 mg Tablet 0.25 MG PO (08:35)
[2022-07-24] MEDS: amiodarone 200 mg Tablet 400 MG PO (08:35)
[2022-07-24] MEDS: aspirin 81 mg EC Tablet PO (08:35)
[2022-07-24] MEDS: cyanocobalamin 1,000 mcg Tablet 500 MCG PO (08:36)
[2022-07-24] MEDS: hyDRALAzine 25 mg Tablet PO ×2 (08:45→14:44)
== END 2022-07-24 17:30 | disposition home or self-care (01) | DRG 282 ==
LOC: ER 02:24 → CSU 02:26
PROVIDERS: Internal Medicine; Admitting Provider Internal Medicine; Emergency Provider Emergency Medicine; PCP Family Medicine; Visit Provider Student in an Organized Health Care Education/Training Program
PROC: B2111ZZ Fluoroscopy of Multiple Coronary Arteries using Low Osmolar Contrast (ICD-10-PCS; principal; 2022-07-23 11:00)
DX: I21.4 Non-ST elevation (NSTEMI) myocardial infarction (principal); I71.40 Abdominal aortic aneurysm, without rupture, unspecified; E78.5 Hyperlipidemia, unspecified; I25.10 Atherosclerotic heart disease of native coronary artery without angina pectoris; K57.90 Diverticulosis of intestine, part unspecified, without perforation or abscess without bleeding; I10 Essential (primary) hypertension; Z88.6 Allergy status to analgesic agent; Z87.891 Personal history of nicotine dependence; H57.02 Anisocoria
CPT/HCPCS: 36415; 70450; 71045; 78452; 80053; 80061; 82607; 82746; 83036; 83540; 83550; 83735; 84439; 84443; 84481; 84484; 85025; 85378; 85610; 93005; 93017; 93306; 93454; 96372; 96374; 96376; 99152; 99153; 99285; A9500; C1769; C1887; C1894; C9113; J0282; J1644; J1650; J2250; J2270; J2405; J2785; J3010; J3490; J7030; J7060; Q9967

== ENCOUNTER → 2022-08-01 10:23 | Outpatient (BNVA) | payer MEDICARE, SELFPAY | PROVIDERS: PCP Family Medicine; Visit Provider Nurse Practitioner Family | DX: I48.91 Unspecified atrial fibrillation (principal); I25.10 Atherosclerotic heart disease of native coronary artery without angina pectoris; Z87.891 Personal history of nicotine dependence | CPT/HCPCS: 80048; 93005; 99214 ==

== ENCOUNTER 2022-08-06 06:50 | Emergency (ER) | payer MEDICARE, SELFPAY ==
[2022-08-06 07:01] VITALS: BP 229/104; PULSE 61; RESP 18; TEMP 36.8; O2SAT 97; BMI 27.8
--- NOTE | 2022-08-06 07:13 | ED_ITS ---
HPI - General Adult General: Chief complaint: General Medical Stated complaint: High BP, was recently inpatient Time Seen by Provider: 08/06/22 06:55 Source: patient Mode of arrival: ambulatory History of Present Illness: 82-year-old male presents emergency room complaining of elevated blood pressure he noticed markedly elevated blood pressures at home he recently had seen his doctor he tells me they had had him hold his hydralazine because his blood pressure did seem to normalize now with worsening again he denies any chest pain or discomfort no focal neurologic deficits no strokelike symptoms weakness ataxia or difficulty speech swallowing etc. Recent hospitalization his blood pressure was elevated he was also admitted for A-fib with RVR. He had an elevation of his troponin he will underwent cardiac catheterization and was found a totally occluded RCA they elected to proceed with medical management. He was discharged home on amiodarone and Eliquis which she is still taking both of these not had any further palpitations rapid heart rates lightheadedness or dizziness Onset (ago): hour(s) Severity: moderate Relieving factors: none Exacerbating factors: none Associated symptoms: Deny chest pain, confusion, cough, diaphoresis, decreased appetite, dyspnea, fevers/chills, headache(s), malaise, nausea, rash, palpitations, seizures, short of breath, syncope, vomiting or weakness Review of Systems Const: Denies: malaise or diaphoresis ENMT: Denies: throat pain, ear or mastoid pain, nasal discharge or nasal congestion Card: Denies: chest pain, palpitations or syncope Resp: Denies: dyspnea GI: Denies: nausea or vomiting : Denies: flank pain, dysuria, urinary frequency or urinary urgency Skin/Breast: Denies: rash Neuro: Denies: headache(s) or confusion PFSH ED PFSH: Medical History Acalculous cholecystitis Bilateral carpal tunnel syndrome BPH (benign prostatic hyperplasia) Coronary atherosclerosis Degenerative joint disease Diverticulosis Dyslipidemia Gallbladder mass Hypertension Renal cyst Ulnar neuropathy of both upper extremities Surgical History No pertinent past surgical history Family History Other CAD (coronary artery disease) Cancer Hypertension Social History Smoking and tobacco status: former smoker Alcohol intake: current Alcohol intake frequency: holidays/special occasions only Alcohol type: beer Substance/Drug Use: never Household members: spouse Housing: House 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 Physical Exam Const: COMMON NORMALS: no acute distress GENERAL APPEARANCE: cooperative and comfortable ORIENTATION/CONSCIOUSNESS: Yes awake, Yes oriented to person, Yes oriented to place and Yes oriented to time HENMT: COMMON NORMALS: normocephalic, atraumatic and hearing grossly normal bilaterally HEAD & SCALP: normocephalic and atraumatic Resp: COMMON NORMALS: normal respiratory effort, No retractions, No use of accessory muscles and clear to auscultation bilaterally AUSCULTATION: clear to auscultation bilaterally Cardio: COMMON NORMALS: regular rate, regular rhythm and No murmurs present (Cardio) RATE: regular rate RHYTHM: regular rhythm GI: COMMON NORMALS: Soft to palpation and No hepatosplenomegaly present AUSCULTATION: Yes normoactive bowel sounds PALPATION: Yes Soft to palpation, No Tenderness to palpation present (GI), No Guarding due to palpation present (GI) and Yes No hepatosplenomegaly present Extremity: COMMON NORMALS: normal to inspection, capillary refill normal, no clubbing, cyanosis or edema, no calf tenderness and no pedal edema Neuro: SENSORIUM/ORIENTATION: Yes oriented to person, Yes oriented to place and Yes oriented to time Skin: COMMON NORMALS: no rashes or lesions noted GENERAL SKIN EXAM: no rashes or lesions noted Course Vital Signs: Vital signs: Vital Signs Temperature 98.3 F 08/06/22 07:01 Pulse Rate 65 08/06/22 07:23 Respiratory Rate 18 08/06/22 08:09 Blood Pressure 156/85 08/06/22 07:58 Pulse Oximetry 98 08/06/22 08:09 Oxygen Delivery Me thod Room Air 08/06/22 08:09 MDM - General Adult Medical Decision Making Over 100 point difference between the left and the right arms with the left arm being essentially normal in his right arm being markedly elevated at 229 initially on the systolic reading. Ultrasound the upper extremities confirms subclavian steal with a left subclavian stenosis. He is otherwise asymptomatic this time he is on anticoagulation. We will increase his hydralazine to 25 3 times daily add amlodipine continue his other medications. Discussed with the patient his blood pressure monitoring should be exclusively from his right arm for the time being as the left arm does not accurately evaluate his systemic blood pressure. We will set him up for a CTA of the upper extremities including the subclavian's and refer back to Dr. Luna who can make arrangements for tertiary care referral. Discussed Dr. Luna he concurs. He would like to evaluate the CTA for himself before referring the patient. Discussed with the patient and explained to him and his questions answered. He should follow- up with his primary care doctor within the week to reevaluate blood pressure. Medical Records I reviewed the patient's medical records. Lab Data I reviewed the patient's lab results. 08/06/22 07:28 08/06/22 07:28 Laboratory Results WBC 7.7 10^3/uL (4.0-10.0) 08/06/22 07: RBC 4.77 10^6/uL (4.1-5.3) 08/06/22 07: Hgb 14.6 g/dL (11.7-16.6) 08/06/22 07: Hct 43.8 % (42.0-52.0) 08/06/22 07: MCV 91.8 fl (80-94) 08/06/22 07: MCH 30.6 pg (28.0-34.0) 08/06/22 07: MCHC 33.3 g/dL (30.0-36.0) 08/06/22 07: RDW 14.1 % (12.1-15.1) 08/06/22 07:28 Plt Count 304 10^3/cmm (130-400) 08/06/22 07: MPV 9.3 fL (7.4-10.4) 08/06/22 07: Neut % (Auto) 76.1 % 08/06/22 07: Lymph % (Auto) 13.9 % 08/06/22 07: [place] % (Auto) 7.6 % 08/06/22 07: Eos % (Auto) 1.3 % 08/06/22 07: Baso % (Auto) 0.7 % 08/06/22 07:28 Neut # (Auto) 5.85 10^3/uL (1.8-7.7) 08/06/22 07:28 Lymph # (Auto) 1.1 10^3/uL (0.8-4.8) 08/06/22 07:28 [place] # (Auto) 0.6 10^3/uL (0.2-0.9) 08/06/22 07:28 Eos # (Auto) 0.1 10^3/uL (0.0-0.8) 08/06/22 07:28 Baso # (Auto) 0.1 10^3/uL (0.0-0.1) 08/06/22 07:28 Nucleated RBC % (auto) 0 % 08/06/22 07:28 Nucleated RBCs # 0.0 /100WBC 08/06/22 07:28 Sodium 137 mmol/L (136-145) 08/06/22 07:28 Potassium 4.2 mmol/L (3.5-5.1) 08/06/22 07:28 Chloride 102 mmol/L (98-107) 08/06/22 07:28 Carbon Dioxide 22 mmol/L (22-29) 08/06/22 07:28 Anion Gap 17.2 (5-19) 08/06/22 07:28 BUN 8 mg/dL (8-23) 08/06/22 07:28 Creatinine 0.9 mg/dL (0.7-1.2) 08/06/22 07:28 GFR Calculation Not Reportable 08/06/22 07:28 Glucose 89 mg/dL (65-115) 08/06/22 07:28 Calculated Osmolality 282 mOsm/kg (285-295) L 08/06/22 07:28 Calcium 9.2 mg/dL (8.5-10.5) 08/06/22 07:28 Discharge Plan Discharge Patient Disposition: Home Clinical Impression: Steal syndrome, subclavian, Stenosis of left subclavian artery, Hypertension Condition: Stable Prescriptions: New amlodipine 10 mg tablet 10 mg PO DAILY Qty: 30 0RF Changed hydralazine 25 mg Tablet 25 mg PO TID 30 Days Qty: 60 0RF No Action Pacerone 200 mg tablet 200 mg PO DAILY Qty: 90 3RF Rx Instructions: 200 mg BID for 7 days then 200 mg daily Eliquis 5 mg tablet 5 mg PO BID Qty: 180 3RF metoprolol tartrate 50 mg tablet 100 mg PO BID Qty: 360 3RF pravastatin 40 mg tablet 40 mg PO QPM Qty: 90 3RF aspirin 81 mg Tablet,Delayed Release (Dr/Ec) 81 mg PO DAILY Qty: 30 0RF Vitamin B-12 1,000 mcg Tablet 500 mcg PO DAILY Qty: 30 0RF Discharge Orders: Discharge ED (Routine); Ordered 08/06/22 Ordered By: Jaguar Coy Referrals: Naeem Plasencia DO [Primary Care Provider] - Discharge Diet: Usual diet Discharge Activity: Increase activity as tolerated Patient Instructions: Opioid Safety, Pain Management Activity Restrictions/Additional Instructions: Increase your hydralazine to 1 tablet 3 times daily add amlodipine 10 mg once daily. Recheck your blood pressure in your right arm only. Your left subclavian artery has a blockage and will not accurately reflect your overall blood pressure. To evaluate this blockage further case management will make arrangements for an outpatient CTA of the upper extremities and a follow-up appointment with Dr. Luna. Coding Level of Care Code [facility] Specialist for Milton Holloway
--- NOTE | 2022-08-06 07:21 | PC.NURSE ---
Took manual blood pressure in both arms, left arm was 122/85, right arm was 202/98.
--- NOTE | 2022-08-06 07:22 | USR_ITS ---
PROCEDURE INFORMATION: Exam: US Duplex Upper Extremity Arteries Exam date and time: 08/06/2022 8:14 AM Age: 82 years old Clinical indication: Pain; Arm, lower; Left; Additional info: Dispcrepant BP l-r TECHNIQUE: Imaging protocol: Real-time ultrasound scan of the arteries of the bilateral upper extremities with 2-D ryan scale, color Doppler flow and spectral waveform analysis. Complete exam. COMPARISON: CT angio chest [id number] 02/23/2021 9:41 AM FINDINGS: Right subclavian artery: No occlusion or significant stenosis. Normal waveform. Right axillary artery: No occlusion or significant stenosis. Normal waveform. Right brachial artery: No occlusion or significant stenosis. Normal waveform. Right radial artery: No occlusion or significant stenosis. Normal waveform. Right ulnar artery: No occlusion or significant stenosis. Normal waveform. Left subclavian artery: There is a tardus parvus waveform in the left subclavian artery distally. Left axillary artery: Tardus parvus waveform in the left axillary artery. Left brachial artery: Tardus parvus waveform in the left brachial artery. Left radial artery: Tardus parvus waveform in the left radial artery. Left ulnar artery: Tardus parvus waveform in the left ulnar artery. Other arteries: The left vertebral artery demonstrates retrograde flow. US/[place] [id number] IMPRESSION: There is evidence of significant stenosis of the proximal left subclavian artery with subclavian steal, as evidenced by retrograde flow in the left vertebral artery and tardus parvus waveforms in the arteries of the left upper extremity.
[2022-08-06 07:23] VITALS: PULSE 65
[2022-08-06] MEDS: amlodipine 10 mg Tablet PO (07:28)
[2022-08-06] MEDS: hyDRALAzine 20 mg/mL INJ 1 mL IVP (07:28)
[2022-08-06 07:42] LABS: Basophils # 0.1 10^3/uL (0.0-0.1); Basophils % 0.7 %; Eosinophils # 0.1 10^3/uL (0.0-0.8); Eosinophils % 1.3 %; Hematocrit 43.8 % (42.0-52.0); Hemoglobin 14.6 g/dL (11.7-16.6); Lymphocytes # 1.1 10^3/uL (0.8-4.8); Lymphocytes % 13.9 %; Mean Corpuscular HGB Conc 33.3 g/dL (30.0-36.0); Mean Corpuscular Hemoglobin 30.6 pg (28.0-34.0); Mean Corpuscular Volume 91.8 fl (80-94); Mean Platelet Volume 9.3 fL (7.4-10.4); Monocytes # 0.6 10^3/uL (0.2-0.9); Monocytes % 7.6 %; Neutrophils # 5.85 10^3/uL (1.8-7.7); Neutrophils % 76.1 %; Nucleated Red Blood Cells % 0 %; Platelet Count 304 10^3/cmm (130-400); Red Blood Count 4.77 10^6/uL (4.1-5.3); Red Cell Distribution Width 14.1 % (12.1-15.1); White Blood Count 7.7 10^3/uL (4.0-10.0)
[2022-08-06 07:56] LABS: Anion Gap 17.2 (5-19); Blood Urea Nitrogen 8 mg/dL (8-23); Calcium 9.2 mg/dL (8.5-10.5); Carbon Dioxide 22 mmol/L (22-29); Chloride 102 mmol/L (98-107); Glucose 89 mg/dL (65-115); Osmolality Calculated 282 mOsm/kg (285-295); Potassium 4.2 mmol/L (3.5-5.1); Sodium 137 mmol/L (136-145)
[2022-08-06 07:58] VITALS: BP 156/85
[2022-08-06 08:09] VITALS: RESP 18; O2SAT 98
[2022-08-06 09:06] VITALS: BP 153/75
--- NOTE | 2022-08-06 11:47 | PC.SOCIAL ---
Addendum entered by Kate Gonzalez 09/05/22 06:58: Patient had an out patient test scheduled - patient did attend appointment Addendum entered by Kate Gonzalez 08/20/22 14:38: Patient has a CTA runoff scheduled for August 29 at 3:30 and Tuesday, August 30, 2022 at 4:30. Patient has a follow up appointment scheduled with heart care for saturday, October 22, 2022 at 1:[address] Solares at [facility]. Original Note: Orders for CTA sent to [facility]. Message sent to cardiology for F/u with Dr. Solares; notified them of test ordered.
== END 2022-08-06 09:07 | disposition home or self-care (01) ==
PROVIDERS: Emergency Provider Family Medicine; PCP Family Medicine
DX: G45.8 Other transient cerebral ischemic attacks and related syndromes (principal); I70.298 Other atherosclerosis of native arteries of extremities, other extremity; I10 Essential (primary) hypertension; Z79.01 Long term (current) use of anticoagulants; Z79.82 Long term (current) use of aspirin; Z87.891 Personal history of nicotine dependence; I25.10 Atherosclerotic heart disease of native coronary artery without angina pectoris; E78.5 Hyperlipidemia, unspecified
CPT/HCPCS: 36415; 80048; 85025; 93930; 96374; 99285; J0360

== ENCOUNTER 2022-08-29 15:18 | Outpatient (CLI) | payer MEDICARE, SELFPAY ==
--- NOTE | 2022-08-29 | CT_ITS ---
WS: [id number] CTA THORACIC AORTA WITH AND WITHOUT CONTRAST. HISTORY: SUBCLAVIAN STEAL SYNDROME TECHNIQUE: CT imaging of the thorax is performed with and without contrast. After noncontrast imaging is performed, CT angiogram is performed during injection of Omnipaque 350; 100 mL IV.. Sagittal and coronal reconstructions, sagittal and coronal MIP imaging is submitted. All CT scans at [facility] use at least one of these dose optimization techniques: automated exposure control; mA and/or k V adjustment per patient size (includes targeted exams where dose is matched to clinical indication); or iterative reconstruction. DLP: 1223.77 mGy.cm COMPARISON: 02/23/2021 Thoracic aorta: Marked tortuosity with moderate plaque throughout the thoracic aorta. Ascending aorta is ectatic but not truly aneurysmal. Maximum diameter 4.2 cm. Ectasia and tortuosity continues throu gh the arch. Just distal to the subclavian artery origin aorta measures 4.3 cm. The descending aorta distally is normal size with plaque. No ulcerations. No dissection or progressive enlargement of the aorta. Innominate artery is intact with plaque. Proximal RIGHT common carotid artery is normal. Increasing p laque towards the cervical carotid bifurcation. Bovine arch. LEFT common carotid artery at its origin is normal. Increasing plaque towards the bifurcation which is incompletely included. LEFT subclavian artery: There is a very large amount of dense calcified plaque obscuring the lumen ex tending over a length of approximately 3 cm. High-grade stenosis in the mid LEFT subclavian artery es timated at just greater than 80%. Axillary artery is patent. Pulmonary hyperexpansion from emphysema. Benign granuloma LEFT lung base. No mass or pneumonia. Trish l pulmonary arteries proximally. Mild cardiomegaly. No pericardial or pleural effusion. Small hiatal hernia. Incompletely visualized LEFT renal cyst measuring 5.6 x 5.4 cm. Increase in thoracic kyphosis. Advanced degenerative disc disease and spondylosis. CT/CT angio chest [id number] IMPRESSION: 1. High-grade stenosis LEFT subclavian artery estimated at just greater than 8 0%. Large amount of calcified plaque also obscuring the lumen. 2. Ectatic thoracic aorta without increase in size since 02/23/2021. Maximum di ameter 4.3 cm just distal to the subclavian artery origin. 3. Chronic emphysema.
[2022-08-29] MEDS: iohexol 350 mg/mL 500 mL Btl (per mL) IV (16:03)
== END 2022-08-29 15:19 | disposition home or self-care (01) ==
PROVIDERS: PCP Family Medicine; Visit Provider Family Medicine
DX: I77.1 Stricture of artery (principal); G45.8 Other transient cerebral ischemic attacks and related syndromes; I70.8 Atherosclerosis of other arteries; I77.810 Thoracic aortic ectasia; J43.9 Emphysema, unspecified
CPT/HCPCS: 71275; Q9967

== ENCOUNTER → 2022-09-05 10:26 | Outpatient (BNVA) | payer MEDICARE, SELFPAY | PROVIDERS: PCP Family Medicine; Visit Provider Thoracic Surgery (Cardiothoracic Vascular Surgery) | DX: I73.9 Peripheral vascular disease, unspecified (principal); I77.1 Stricture of artery; Z87.891 Personal history of nicotine dependence | CPT/HCPCS: 99203 ==

== ENCOUNTER 2022-09-19 08:37 | Outpatient (CLI) | payer MEDICARE, SELFPAY ==
--- NOTE | 2022-09-19 08:45 | USCV_ITS ---
Zulygreta Vasquez Age: 82 Gender: M : 1940 Exam Date: 09/19/2022 09:09 Ordering Phys: Juan Cochran MD (Andy) ([email or web address] [place]) Technologist: Ever Anthony [place] [facility] [place]: CAROTID STENOSIS Risk Factors: Previous Vascular Surgery: Right Brachial BP: / Left Brachial BP: / Right Left Velocity (cm/s) Spectral Plaque Velocity (cm/s) Spectral Plaque Syst/Diast Broadening Syst/Diast Broadening 100.90/18.30 Prox CCA 84.00 / 17.20 102.80/16.30 Mid CCA 78.90 / 12.00 45.40/ 10.50 Distal CCA 72.20 / 20.20 45.90/ 10.10 Prox ICA 97.00 / 24.30 109.10/30.20 Mid ICA 118.00/ 26.50 50.00/ 15.10 Distal ICA 93.70 / 24.30 135.20 ECA 160.00 1.06 ICA/CCA 1.50 Antegrade Vertebral Retrograde 55.90/ 9.90 cm/s 31.60/ 7.30 cm/s Tri Subclavian Sumner 67.60 39.10 CONCLUSIONS Moderate calcified plaque both CCA's Right ICA stenosis <50%. Left ICA stenosis <50%. Normal antegrade Doppler flow noted in the right vertebral artery. Reversed Doppler flow noted in the left vertebral artery with monophasic subclavian waveform suggesting subclavian steal with proximal stenosis. Recommed CTA chest Sebastian Bonds MD (Electronically Signed) Final Date: 19 September 2022 14:36 S
--- NOTE | 2022-09-19 09:15 | USR_ITS ---
PROCEDURE INFORMATION: Exam: US Duplex Bilateral Lower Extremity Arteries Exam date and time: 09/19/2022 9:33 AM Age: 82 years old Clinical indication: Pain; Leg, lower; Bilateral; Additional info: Leg pain.No history of trauma or recent surgery is provided. TECHNIQUE: Imaging protocol: Real-time ultrasound scan of the arteries of the bilateral lower extremities with 2-D ryan scale, color Doppler flow and spectral waveform analysis. Images documented and saved. [id number](s) are provided. COMPARISON: CT abdomen pelvis w con* [id number] 10/01/2019 8:20 PM. No previous lower extremity arterial ultrasound is currently available. FINDINGS: Right external iliac artery: Right iliac artery: The right proximal iliac artery systolic velocity measurement is 120 cm/s. The right mid iliac artery systolic velocity is 102 cm/s. The right distal iliac artery systolic measurement is 155 cm/s. Right common femoral artery: The systolic velocity measurement is 155 cm/s. Right profunda femoris artery: Not available. Right superficial femoral artery: The systolic velocity measurement is 122 cm/s. Right popliteal artery: The systolic velocity measurement is 28 cm/s. Right calf/foot arteries: The systolic velocity measurement is 30 cm/s. The right REGGIE measurement is provided of 0.82. Left external iliac artery: Left iliac artery: The left proximal iliac arterial systolic velocity is 142 cm/s. The left mid iliac artery velocity is 162 cm/s. The left distal iliac arterial velocity is 149 cm/s. Left common femoral artery: The systolic velocity measurement is 157 cm/s. Left profunda femoris artery: Not available. Left superficial femoral artery: The systolic velocity measurement is 36 cm/s. Left popliteal artery: The systolic velocity measurement is 26 cm/s. Left calf/foot arteries: The systolic velocity measurement is 29 cm/s. The left REGGIE measurement is provided of 0.75. Soft tissues: No subcutaneous fluid collections are appreciated. Other findings: There are overall predominant biphasic and monophasic waveforms demonstrated bilaterally along with some systolic waveform blunting. This includes lower overall velocity measurements of the superficial femoral and distal arteries on the left as compared to the right. There are multifocal dense atherosclerotic changes present corresponding to the previous CT description. No other significant interval changes are appreciated. US/CV arterial duplex [facility] [id number] IMPRESSION: 1. The REGGIE measurements provided are right 0.82 and left 0.75. 2. There is patent overall lower extremity arterial color Doppler flow demonstrated bilaterally although there are abnormal waveforms with biphasic and predominant monophasic as well as blunting demonstrated indicative of advanced atherosclerotic change with decreased compliance. This appears most pronounced for example with lower overall velocities on the left. With the extensive bilateral change dedicated conventional percutaneous angiography could be performed for further evaluation as clinically warranted.
== END 2022-09-19 08:38 | disposition home or self-care (01) ==
LOC: RAD 08:39
PROVIDERS: PCP Family Medicine; Visit Provider Thoracic Surgery (Cardiothoracic Vascular Surgery)
DX: I65.23 Occlusion and stenosis of bilateral carotid arteries (principal); M79.605 Pain in left leg; R93.6 Abnormal findings on diagnostic imaging of limbs
CPT/HCPCS: 93880; 93925

== ENCOUNTER → 2022-09-26 12:35 | Outpatient (BNVA) | payer MEDICARE, SELFPAY | PROVIDERS: PCP Family Medicine; Visit Provider Thoracic Surgery (Cardiothoracic Vascular Surgery) | DX: I73.9 Peripheral vascular disease, unspecified (principal); Z87.891 Personal history of nicotine dependence | CPT/HCPCS: 99212 ==

== ENCOUNTER → 2022-10-22 12:32 | Outpatient (BNVA) | payer MEDICARE, SELFPAY | PROVIDERS: PCP Family Medicine; Visit Provider Internal Medicine | DX: I73.9 Peripheral vascular disease, unspecified (principal); I25.10 Atherosclerotic heart disease of native coronary artery without angina pectoris; E78.5 Hyperlipidemia, unspecified; I48.91 Unspecified atrial fibrillation; Z87.891 Personal history of nicotine dependence; I10 Essential (primary) hypertension | CPT/HCPCS: 99214 ==

== ENCOUNTER → 2022-12-26 08:33 | Outpatient (BNVA) | payer MEDICARE, SELFPAY | PROVIDERS: PCP Family Medicine; Visit Provider Thoracic Surgery (Cardiothoracic Vascular Surgery) | DX: I73.9 Peripheral vascular disease, unspecified (principal) | CPT/HCPCS: 99213 ==

== ENCOUNTER 2023-03-31 07:45 | Outpatient (CLI) | payer MEDICARE, SELFPAY ==
--- NOTE | 2023-03-31 08:09 | US_ITS ---
WS: [id number] ULTRASOUND SOFT TISSUES cervical chains. HISTORY: PHARYNGEAL DYSPHAGIA COMPARISON: None available. TECHNIQUE: 2-D and color Doppler imaging is submitted. Cervical chains are evaluated for lymphadenopathy. There are no enlarged lymph nodes identified along the cervical chains. No masses or fluid collections. IMPRESSION: Negative bilateral soft tissue ultrasound of the neck.
== END 2023-03-31 07:46 | disposition home or self-care (01) ==
LOC: RAD 07:48
PROVIDERS: PCP Family Medicine; Visit Provider Family Medicine
DX: R13.13 Dysphagia, pharyngeal phase (principal)
CPT/HCPCS: 76536

== ENCOUNTER → 2023-04-22 14:46 | Outpatient (BNVA) | payer MEDICARE, SELFPAY | PROVIDERS: PCP Family Medicine; Visit Provider Internal Medicine | DX: I73.9 Peripheral vascular disease, unspecified (principal); I25.10 Atherosclerotic heart disease of native coronary artery without angina pectoris; E78.5 Hyperlipidemia, unspecified; I48.91 Unspecified atrial fibrillation; Z79.01 Long term (current) use of anticoagulants; Z87.891 Personal history of nicotine dependence; I10 Essential (primary) hypertension | CPT/HCPCS: 36415; 80048; 83880; 99214 ==

== ENCOUNTER 2023-10-08 23:35 | Emergency (ER) | payer MEDICARE, SELFPAY ==
[2023-10-08 23:36] VITALS: BP 191/95; PULSE 70; RESP 18; TEMP 36.8; O2SAT 96; BMI 28.5
--- NOTE | 2023-10-09 00:22 | XRR_ITS ---
PROCEDURE INFORMATION: Exam: XR Chest Exam date and time: 10/09/2023 12:40 AM Age: 83 years old Clinical indication: Other: Hemoptysis TECHNIQUE: Imaging protocol: Radiologic exam of the chest. Views: 1 view. COMPARISON: CT angio chest [id number] 08/29/2022 4:00 PM FINDINGS: Lungs: Unremarkable. No consolidation. Pleural spaces: Unremarkable. No pleural effusion. No pneumothorax. Heart/Mediastinum: Unremarkable. No cardiomegaly. Vasculature: Unfolding of the thoracic aorta. Aortic arch calcifications. Bones/joints: Moderate degenerative of bilateral glenohumeral and bilateral acromioclavicular joints. XR/XR chest 1V portable [id number] IMPRESSION: No acute cardiopulmonary process.
--- NOTE | 2023-10-09 00:31 | CTR_ITS ---
PROCEDURE INFORMATION: Exam: CTA Chest With Contrast Exam date and time: 10/09/2023 1:02 AM Age: 83 years old Clinical indication: Cough; Prior surgery; Surgery date: 6+ months; Surgery type: Heart cath, choley; Additional info: Hemoptysis TECHNIQUE: Imaging protocol: Computed tomographic angiography of the chest with contrast. Exam focused on the arteries. 3D rendering (Not supervised by radiologist): MIP and/or 3D reconstructed images were created by the technologist. Radiation optimization: All CT scans at this facility use at least one of these dose optimization techniques: automated exposure control; mA and/or kV adjustment per patient size (includes targeted exams where dose is matched to clinical indication); or iterative reconstruction. Contrast material: OMNI 350; Contrast volume: 100 ml; Contrast route: INTRAVENOUS (IV); COMPARISON: CT angio chest [id number] 08/29/2022 4:00 PM RADIATION DOSE METRICS: Total DLP (mGy-cm): 473.05 FINDINGS: Pulmonary arteries: Normal. No pulmonary emboli. Aorta: Aortic calcifications. Tortuous aorta. Lungs: Bilateral apical predominant emphysematous changes. Bilateral lower lobe atelectasis. Calcified granulomas lower lobe. Ground-glass opacities in bilateral lower lobes. Pleural spaces: Unremarkable. No pneumothorax. No pleural effusion. Heart: Unremarkable. No cardiomegaly. No pericardial effusion. Lymph nodes: Calcified mediastinal lymph nodes. Spleen: Calcified splenic granulomas. Stomach: Fatty infiltration of the gastric wall unchanged. Bones/joints: Unremarkable. No acute fracture. Soft tissues: Unremarkable. CT/CT angio chest PE protcl [id number] IMPRESSION: 1. No pulmonary embolism. 2. Ground-glass opacities in bilateral lower lobe that might be related to pneumonia versus hemorrhage.
--- NOTE | 2023-10-09 00:31 | ED_ITS ---
Documented by User: [email or web address] Hung 10/09/23 01:40 HPI - URI/Sore Throat 2 General: Chief Complaint: Dental/Oral Stated Complaint: spitting up blood Time Seen by Provider: 10/09/23 00:05 Source: patient and family Mode of arrival: ambulatory Limitations: no limitations History of Present Illness: Patient is a nice 83-year-old male here along with his for evaluation of hemoptysis. Patient states he has been coughing up a small amount of brown sputum over the past few days but states today he coughed up a few teaspoons of bright red blood. He is on Eliquis for atrial fibrillation. He does state over the past 1 to 2 weeks him and his have had URI-like symptoms consisting of nasal congestion/stuffy nose and a cough. They did home COVID antigen testing which was negative. He does feel like symptoms are improving. He is not complaining of chest pain, shortness of breath, or difficulty breathing. He is not tachycardic or hypoxic upon arrival. Blood pressure is elevated at time of my examination at 180s/80s. He does have a history of hypertension. History previous smoker of 25 years. Onset (ago): day(s) Consistency: intermittent Severity: mild Description of mucous: bloody Able to tolerate fluids by mouth: Yes Exacerbating factors: nothing Relieving factors: nothing Context: sick contacts () Associated symptoms: Reports no associated symptoms and nasal congestion; Deny abdominal pain, chills, chest pain, fever(s), nausea or vomiting Treatments prior to arrival: none Related Data Home Medications Medication Instructions Recorded Confirmed hydralazine 25 mg tablet 25 mg PO BID 09/05/22 04/22/23 pravastatin 40 mg tablet 40 mg PO .COMPLEX 12/26/22 04/22/23 Previous Rx's Medication Instructions Recorded aspirin 81 mg tablet,delayed 81 mg PO DAILY #30 tabs 07/24/22 release cyanocobalamin (vitamin B-12) 500 mcg (1/2 x 1,000 mcg) PO DAILY 07/24/22 1,000 mcg tablet (Vitamin B-12) #30 tabs amiodarone 200 mg tablet (Pacerone) 200 mg PO DAILY #90 tabs 08/01/22 apixaban 5 mg tablet (Eliquis) 5 mg PO BID #180 tabs 08/01/22 amlodipine 10 mg tablet 10 mg PO DAILY #30 tabs 08/06/22 cilostazol 50 mg tablet 50 mg PO BID #180 tabs 04/22/23 metoprolol tartrate 50 mg tablet 100 mg (2 x 50 mg) PO BID #360 tabs 08/05/23 doxycycline monohydrate 100 mg 100 mg PO Q12H 10 days #20 caps 10/09/23 capsule Allergies Allergy/AdvReac Type Severity Reaction Status Date / Time No Known Allergies Allergy Verified 04/22/23 15:04 Review of Systems 2 Const: Denies: fever(s), chills, body aches, fatigue or malaise ENMT: Reports: throat pain and nasal congestion; Denies: odynophagia Card: Reports: edema (chronic); Denies: chest pain, palpitations, irregular heart rhythm, lightheadedness, syncope or pre-syncope Resp: Reports: hemoptysis; Denies: dyspnea, wheezing, pain on inspiration or chest congestion GI: Denies: abdominal pain, nausea or vomiting Neuro: Denies: dizziness PFSH ED 2 PFSH: Medical History Ulnar neuropathy of both upper extremities Bilateral carpal tunnel syndrome Gallbladder mass Dyslipidemia Coronary atherosclerosis Renal cyst Degenerative joint disease BPH (benign prostatic hyperplasia) Diverticulosis Acalculous cholecystitis Hypertension Surgical History No pertinent past surgical history Family History Other CAD (coronary artery disease) Cancer Hypertension Social History Smoking and tobacco/nicotine status: former use of tobacco/nicotine Alcohol intake: current Alcohol intake frequency: holidays/special occasions only Alcohol type: beer Substance/Drug Use: never Household members: spouse Housing: House Current occupation: Retired [employer] Physical Exam 2 Const: COMMON NORMALS: no acute distress, average body habitus, patient oriented x3, no limitations, healthy appearing, alert and well nourished G ENERAL APPEARANCE: cooperative ORIENTATION/CONSCIOUSNESS: Yes awake, Yes oriented to person, Yes oriented to place and Yes oriented to time HENMT: MOUTH: Normal oral and palatal mucosa present and lip normal THROAT: posterior oropharynx normal, tonsils normal and other (small amount of dried blood posterior pharynx ) Neck/C-Spine: GENERAL: Yes normal visual inspection Chest: COMMONS NORMALS: normal inspection of the chest and normal palpation of entire chest wall Resp: COMMON NORMALS: normal respiratory effort and clear to auscultation bilaterally AUSCULTATION: clear to auscultation bilaterally Cardio: COMMON NORMALS: regular rate and regular rhythm RATE: regular rate RHYTHM: regular rhythm Extremity: NARRATIVE EXTREMITY EXAM: mild symmetrical non-pitting edema to LEs Neuro: COMMON NORMALS: patient oriented x3 SENSORIUM/ORIENTATION: Yes alert, Yes oriented to person, Yes oriented to place and Yes oriented to time Course 2 Vital Signs: Vital signs: Vital Signs Temperature 98.2 F 10/08/23 23:36 Pulse Rate 60 10/09/23 01:30 Respiratory Rate 17 10/09/23 01:30 Blood Pressure 134/82 10/09/23 01:30 Pulse Oximetry 92 10/09/23 01:30 Oxygen Delivery Me thod Room Air 10/09/23 01:30 MDM - URI/Sore Throat Medical Decision Making Patient is a very nice 83-year-old male here for complaints of hemoptysis. He has had recent URI-like symptoms as well as his . He does not complain of chest pain, shortness of breath, or difficulty breathing. Blood work overall is unremarkable. Minor elevations to his AST/ALT. CTA imaging obtained showing groundglass opacities in his bilateral lower lobes and may be related to pneumonia versus hemorrhage. Patient does take Eliquis. Case discussed with Dr. Coy. At this point we recommend patient discontinue his Eliquis and start taking a full aspirin until told otherwise by primary care. He does have follow-up with his primary care early this morning around 8 AM. I recommend he keep this appointment. Risks of discontinuing his Eliquis were discussed with the patient who verbalized understanding. Return to ED precautions given. Will call in antibiotics to his pharmacy for pneumonia coverage. COVID PCR obtained and pending Medical Records I reviewed the patient's medical records. Lab Data I reviewed the patient's lab results. 10/09/23 00:30 10/09/23 00:30 Radiology Impressions Chest X-Ray 10/09/23 00:22 IMPRESSION: No acute cardiopulmonary process. Chest CTA 10/09/23 00:31 IMPRESSION: 1. No pulmonary embolism. 2. Ground-glass opacities in bilateral lower lobe that might be related to pneumonia versus hemorrhage. 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 Laboratory Results WBC 10.55 10^3/uL (3.29-11.43) 10/09/23 00:30 RBC 5.07 10^6/uL (3.85-5.65) 10/09/23 00:30 Hgb 15.40 g/dL (11.27-16.99) 10/09/23 00:30 Hct 46.9 % (37-53) 10/09/23 00:30 MCV 92.5 fl (82-101) 10/09/23 00:30 MCH 30.4 pg (27-33) 10/09/23 00:30 MCHC 32.8 g/dL (30-55) 10/09/23 00:30 RDW 14.9 % (12.1-15.1) 10/09/23 00:30 Plt Count 295 10^3/cmm (157-399) 10/09/23 00:30 MPV 9.7 fL (7.4-10.4) 10/09/23 00:30 Neut % (Auto) 72.3 % 10/09/23 00:30 Lymph % (Auto) 17.3 % 10/09/23 00:30 [place] % (Auto) 7.5 % 10/09/23 00:30 Eos % (Auto) 1.3 % 10/09/23 00:30 Baso % (Auto) 0.5 % 10/09/23 00:30 Neut # (Auto) 7.62 10^3/uL (1.8-7.7) 10/09/23 00:30 Lymph # (Auto) 1.8 10^3/uL (0.8-4.8) 10/09/23 00:30 [place] # (Auto) 0.8 10^3/uL (0.2-0.9) 10/09/23 00:30 Eos # (Auto) 0.1 10^3/uL (0.0-0.8) 10/09/23 00:30 Baso # (Auto) 0.1 10^3/uL (0.0-0.1) 10/09/23 00:30 Nucleated RBC % (auto) 0 % 10/09/23 00:30 Nucleated RBCs # 0.0 /100WBC 10/09/23 00:30 Sodium 136 mmol/L (136-145) 10/09/23 00:30 Potassium 4.0 mmol/L (3.5-5.1) 10/09/23 00:30 Chloride 99 mmol/L (98-107) 10/09/23 00:30 Carbon Dioxide 22 mmol/L (22-29) 10/09/23 00:30 Anion Gap 19.0 (5-19) 10/09/23 00:30 BUN 14 mg/dL (8-23) 10/09/23 00:30 Creatinine 1.2 mg/dL (0.7-1.2) 10/09/23 00:30 GFR Calculation Not Reportable 10/09/23 00:30 Glucose 118 mg/dL (65-115) H 10/09/23 00:30 Calculated Osmolality 284 mOsm/kg (285-295) L 10/09/23 00:30 Calcium 8.9 mg/dL (8.5-10.5) 10/09/23 00:30 Total Bilirubin 0.5 mg/dL (0.15-1.2) 10/09/23 00:30 AST 51 U/L (0-40) H 10/09/23 00:30 ALT 70 U/L (0-41) H 10/09/23 00:30 Alkaline Phosphatase 96 U/L (40-130) 10/09/23 00:30 Total Protein 7.7 g/dL (6.6-8.7) 10/09/23 00:30 Albumin 4.0 g/dL (3.5-5.2) 10/09/23 00:30 Globulin 3.7 g/dL (1.3-4.6) 10/09/23 00:30 All radiology interpretation(s) finalized by discharge Discharge Plan Discharge Patient Disposition: Home Clinical Impression: Hemoptysis Pneumonia Qualifiers: Pneumonia type: due to unspecified organism Laterality: bilateral Lung location: lower lobe of lung Qualified Code(s): J18.9 - Pneumonia, unspecified organism Condition: Stable Prescriptions: New doxycycline monohydrate 100 mg capsule 100 mg PO Q12H 10 Days Qty: 20 0RF No Action Pacerone 200 mg tablet 200 mg PO DAILY Qty: 90 3RF Rx Instructions: 200 mg BID for 7 days then 200 mg daily Eliquis 5 mg tablet 5 mg PO BID Qty: 180 3RF pravastatin 40 mg tablet 40 mg PO .COMPLEX Rx Instructions: 40 mg orally takes mon,wed,fri ; hydralazine 25 mg tablet 25 mg PO BID cilostazol 50 mg tablet 50 mg PO BID Qty: 180 3RF metoprolol tartrate 50 mg tablet 100 mg PO BID Qty: 360 3RF aspirin 81 mg Tablet,Delayed Release (Dr/Ec) 81 mg PO DAILY Qty: 30 0RF Vitamin B-12 1,000 mcg Tablet 500 mcg PO DAILY Qty: 30 0RF amlodipine 10 mg tablet 10 mg PO DAILY Qty: 30 0RF Discharge Orders: Discharge ED (Routine); Ordered 10/09/23 Ordered By: Krysta Pacheco Referrals: Naeem Plasencia DO [Primary Care Provider] - Activity Restrictions/Additional Instructions: As we discussed your CTA did not show evidence of a blood clot. It did show groundglass opacities in bilateral lower lobes that might be related to pneumonia versus hemorrhage. As we discussed, based on these findings I would like you to discontinue your Eliquis and start taking a full aspirin daily. Follow-up with primary care in the morning as you are currently scheduled. They can speak to you about resuming your Eliquis. Please fill your antibiotics in the morning and start them. Coding Level of Care Code ED Rn Coronary Care Unit for Chg Fwd Documented by User: Jaguar Coy DO 10/09/23 01:44 HPI - URI/Sore Throat 2 General: Chief Complaint: Dental/Oral Stated Complaint: spitting up blood Time Seen by Provider: 10/09/23 00:05 Related Data Home Medications Medication Instructions Recorded Confirmed hydralazine 25 mg tablet 25 mg PO BID 09/05/22 04/22/23 pravastatin 40 mg tablet 40 mg PO .COMPLEX 12/26/22 04/22/23 Previous Rx's Medication Instructions Recorded aspirin 81 mg tablet,delayed 81 mg PO DAILY #30 tabs 07/24/22 release cyanocobalamin (vitamin B-12) 500 mcg (1/2 x 1,000 mcg) PO DAILY 07/24/22 1,000 mcg tablet (Vitamin B-12) #30 tabs amiodarone 200 mg tablet (Pacerone) 200 mg PO DAILY #90 tabs 08/01/22 apixaban 5 mg tablet (Eliquis) 5 mg PO BID #180 tabs 08/01/22 amlodipine 10 mg tablet 10 mg PO DAILY #30 tabs 08/06/22 cilostazol 50 mg tablet 50 mg PO BID #180 tabs 04/22/23 metoprolol tartrate 50 mg tablet 100 mg (2 x 50 mg) PO BID #360 tabs 08/05/23 doxycycline monohydrate 100 mg 100 mg PO Q12H 10 days #20 caps 10/09/23 capsule Allergies Allergy/AdvReac Type Severity Reaction Status Date / Time No Known Allergies Allergy Verified 04/22/23 15:04 PFSH ED 2 PFSH: Medical History Ulnar neuropathy of both upper extremities Bilateral carpal tunnel syndrome Gallbladder mass Dyslipidemia Coronary atherosclerosis Renal cyst Degenerative joint disease BPH (benign prostatic hyperplasia) Diverticulosis Acalculous cholecystitis Hypertension Surgical History No pertinent past surgical history Family History Other CAD (coronary artery disease) Cancer Hypertension Social History Smoking and tobacco/nicotine status: former use of tobacco/nicotine Alcohol intake: current Alcohol intake frequency: holidays/special occasions only Alcohol type: beer Substance/Drug Use: never Household members: spouse Housing: House Current occupation: [employer] Vital Signs: Vital signs: Vital Signs Temperature 98.2 F 10/08/23 23:36 Pulse Rate 60 10/09/23 01:30 Respiratory Rate 17 10/09/23 01:30 Blood Pressure 134/82 10/09/23 01:30 Pulse Oximetry 92 10/09/23 01:30 Oxygen Delivery Me thod Room Air 10/09/23 01:30 MDM - URI/Sore Throat Medical Decision Making Patient is a very nice 83-year-old male here for complaints of hemoptysis. He has had recent URI-like symptoms as well as his . He does not complain of chest pain, shortness of breath, or difficulty breathing. Blood work overall is unremarkable. Minor elevations to his AST/ALT. CTA imaging obtained showing groundglass opacities in his bilateral lower lobes and may be related to pneumonia versus hemorrhage. Patient does take Eliquis. Case discussed with Dr. Coy. At this point we recommend patient discontinue his Eliquis and start taking a full aspirin until told otherwise by primary care. He does have follow-up with his primary care early this morning around 8 AM. I recommend he keep this appointment. Risks of discontinuing his Eliquis were discussed with the patient who verbalized understanding. Return to ED precautions given. Will call in antibiotics to his pharmacy for pneumonia coverage. COVID PCR obtained and pending Chart reviewed and patient discussed with midlevel. Agree with assessment and plan. Lab Data 10/09/23 00:30 10/09/23 00:30 Radiology Impressions Chest X-Ray 10/09/23 00:22 IMPRESSION: No acute cardiopulmonary process. Chest CTA 10/09/23 00:31 IMPRESSION: 1. No pulmonary embolism. 2. Ground-glass opacities in bilateral lower lobe that might be related to pneumonia versus hemorrhage. 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 Laboratory Results WBC 10.55 10^3/uL (3.29-11.43) 10/09/23 00:30 RBC 5.07 10^6/uL (3.85-5.65) 10/09/23 00:30 Hgb 15.40 g/dL (11.27-16.99) 10/09/23 00:30 Hct 46.9 % (37-53) 10/09/23 00:30 MCV 92.5 fl (82-101) 10/09/23 00:30 MCH 30.4 pg (27-33) 10/09/23 00:30 MCHC 32.8 g/dL (30-55) 10/09/23 00:30 RDW 14.9 % (12.1-15.1) 10/09/23 00:30 Plt Count 295 10^3/cmm (157-399) 10/09/23 00:30 MPV 9.7 fL (7.4-10.4) 10/09/23 00:30 Neut % (Auto) 72.3 % 10/09/23 00:30 Lymph % (Auto) 17.3 % 10/09/23 00:30 [place] % (Auto) 7.5 % 10/09/23 00:30 Eos % (Auto) 1.3 % 10/09/23 00:30 Baso % (Auto) 0.5 % 10/09/23 00:30 Neut # (Auto) 7.62 10^3/uL (1.8-7.7) 10/09/23 00:30 Lymph # (Auto) 1.8 10^3/uL (0.8-4.8) 10/09/23 00:30 [place] # (Auto) 0.8 10^3/uL (0.2-0.9) 10/09/23 00:30 Eos # (Auto) 0.1 10^3/uL (0.0-0.8) 10/09/23 00:30 Baso # (Auto) 0.1 10^3/uL (0.0-0.1) 10/09/23 00:30 Nucleated RBC % (auto) 0 % 10/09/23 00:30 Nucleated RBCs # 0.0 /100WBC 10/09/23 00:30 Sodium 136 mmol/L (136-145) 10/09/23 00:30 Potassium 4.0 mmol/L (3.5-5.1) 10/09/23 00:30 Chloride 99 mmol/L (98-107) 10/09/23 00:30 Carbon Dioxide 22 mmol/L (22-29) 10/09/23 00:30 Anion Gap 19.0 (5-19) 10/09/23 00:30 BUN 14 mg/dL (8-23) 10/09/23 00:30 Creatinine 1.2 mg/dL (0.7-1.2) 10/09/23 00:30 GFR Calculation Not Reportable 10/09/23 00:30 Glucose 118 mg/dL (65-115) H 10/09/23 00:30 Calculated Osmolality 284 mOsm/kg (285-295) L 10/09/23 00:30 Calcium 8.9 mg/dL (8.5-10.5) 10/09/23 00:30 Total Bilirubin 0.5 mg/dL (0.15-1.2) 10/09/23 00:30 AST 51 U/L (0-40) H 10/09/23 00:30 ALT 70 U/L (0-41) H 10/09/23 00:30 Alkaline Phosphatase 96 U/L (40-130) 10/09/23 00:30 Total Protein 7.7 g/dL (6.6-8.7) 10/09/23 00:30 Albumin 4.0 g/dL (3.5-5.2) 10/09/23 00:30 Globulin 3.7 g/dL (1.3-4.6) 10/09/23 00:30 Discharge Plan Discharge Patient Disposition: Home Clinical Impression: Hemoptysis Pneumonia Qualifiers: Pneumonia type: due to unspecified organism Laterality: bilateral Lung location: lower lobe of lung Qualified Code(s): J18.9 - Pneumonia, unspecified organism Condition: Stable Prescriptions: New doxycycline monohydrate 100 mg capsule 100 mg PO Q12H 10 Days Qty: 20 0RF No Action Pacerone 200 mg tablet 200 mg PO DAILY Qty: 90 3RF Rx Instructions: 200 mg BID for 7 days then 200 mg daily Eliquis 5 mg tablet 5 mg PO BID Qty: 180 3RF pravastatin 40 mg tablet 40 mg PO .COMPLEX Rx Instructions: 40 mg orally takes mon,wed,fri ; hydralazine 25 mg tablet 25 mg PO BID cilostazol 50 mg tablet 50 mg PO BID Qty: 180 3RF metoprolol tartrate 50 mg tablet 100 mg PO BID Qty: 360 3RF aspirin 81 mg Tablet,Delayed Release (Dr/Ec) 81 mg PO DAILY Qty: 30 0RF Vitamin B-12 1,000 mcg Tablet 500 mcg PO DAILY Qty: 30 0RF amlodipine 10 mg tablet 10 mg PO DAILY Qty: 30 0RF Discharge Orders: Discharge ED (Routine); Ordered 10/09/23 Ordered By: Krysta Pacheco Referrals: Naeem Plasencia DO [Primary Care Provider] - Activity Restrictions/Additional Instructions: As we discussed your CTA did not show evidence of a blood clot. It did show groundglass opacities in bilateral lower lobes that might be related to pneumonia versus hemorrhage. As we discussed, based on these findings I would like you to discontinue your Eliquis and start taking a full aspirin daily. Follow-up with primary care in the morning as you are currently scheduled. They can speak to you about resuming your Eliquis. Please fill your antibiotics in the morning and start them. Coding Level of Care Code ED Rn Coronary Care Unit for [place]
[2023-10-09 00:33] VITALS: BP 186/83; PULSE 18; RESP 18; O2SAT 93
[2023-10-09 00:38] LABS: Basophils # 0.1 10^3/uL (0.0-0.1); Basophils % 0.5 %; Eosinophils # 0.1 10^3/uL (0.0-0.8); Eosinophils % 1.3 %; Hematocrit 46.9 % (37-53); Lymphocytes # 1.8 10^3/uL (0.8-4.8); Lymphocytes % 17.3 %; Mean Corpuscular HGB Conc 32.8 g/dL (30-55); Mean Corpuscular Hemoglobin 30.4 pg (27-33); Mean Corpuscular Volume 92.5 fl (82-101); Mean Platelet Volume 9.7 fL (7.4-10.4); Monocytes # 0.8 10^3/uL (0.2-0.9); Monocytes % 7.5 %; Neutrophils # 7.62 10^3/uL (1.8-7.7); Neutrophils % 72.3 %; Nucleated Red Blood Cells % 0 %; Platelet Count 295 10^3/cmm (157-399); Red Blood Count 5.07 10^6/uL (3.85-5.65); Red Cell Distribution Width 14.9 % (12.1-15.1); White Blood Count 10.55 10^3/uL (3.29-11.43)
[2023-10-09 00:52] LABS: Alanine Aminotransferase 70 U/L (0-41); Alkaline Phosphatase 96 U/L (40-130); Aspartate Amino Transferase 51 U/L (0-40); Blood Urea Nitrogen 14 mg/dL (8-23); Calcium 8.9 mg/dL (8.5-10.5); Carbon Dioxide 22 mmol/L (22-29); Chloride 99 mmol/L (98-107); Globulin 3.7 g/dL (1.3-4.6); Glucose 118 mg/dL (65-115); Osmolality Calculated 284 mOsm/kg (285-295); Sodium 136 mmol/L (136-145); Total Bilirubin 0.5 mg/dL (0.15-1.2); Total Protein 7.7 g/dL (6.6-8.7)
[2023-10-09 01:00] VITALS: BP 133/76
[2023-10-09 01:10] VITALS: BP 175/94; PULSE 60; RESP 16; O2SAT 95
[2023-10-09] MEDS: iohexol 350 mg/mL 500 mL Btl (per mL) IV (01:12)
[2023-10-09 01:30] VITALS: BP 134/82; PULSE 60; RESP 17; O2SAT 92
[2023-10-09 01:47] VITALS: BP 158/90; PULSE 59; RESP 16; O2SAT 90
[2023-10-09 03:47] LABS: Adenovirus Not Detected (NOT DETECT); Chlamydia Pneumoniae Not Detected (NOT DETECT); Coronavirus 229E,HKU1,NL63,OC4 Not Detected (NOT DETECT); Human Metapneumovirus Not Detected (NOT DETECT); Human Rhinovirus/Enterovirus Detected (NOT DETECT); Influenza A Not Detected (NOT DETECT); Influenza A H1 Not Detected (NOT DETECT); Influenza A H1-2009 Not Detected (NOT DETECT); Influenza A H3 Not Detected (NOT DETECT); Influenza B Not Detected (NOT DETECT); Mycoplasma Pneumoniae Not Detected (NOT DETECT); Parainfluenza Virus Type 1 Not Detected (NOT DETECT); Parainfluenza Virus Type 2 Not Detected (NOT DETECT); Parainfluenza Virus Type 3 Not Detected (NOT DETECT); Parainfluenza Virus Type 4 Not Detected (NOT DETECT); Respiratory Syncytial Virus A Not Detected (NOT DETECT); Respiratory Syncytial Virus B Not Detected (NOT DETECT); SARS-COV-2 Not Detected (NOT DETECT)
[2023-10-09 03:49] LABS: Human Metapneumovirus Not Detected (NOT DETECT); Human Rhinovirus/Enterovirus Detected (NOT DETECT); Results from GE
== END 2023-10-09 01:40 | disposition home or self-care (01) ==
PROVIDERS: Emergency Provider Physician Assistant; PCP Family Medicine
DX: R04.2 Hemoptysis (principal); J18.9 Pneumonia, unspecified organism; Z79.82 Long term (current) use of aspirin; Z79.01 Long term (current) use of anticoagulants; E78.5 Hyperlipidemia, unspecified; I10 Essential (primary) hypertension; Z87.891 Personal history of nicotine dependence; Z11.52 Encounter for screening for COVID-19
CPT/HCPCS: 71045; 71275; 80053; 85025; 87635; 87801; 99285; Q9967